=== PATIENT | male | born 1955 | race Caucasian/White ===

== ENCOUNTER 2018-07-30 09:17 | Day surgery (SDC) | payer OTHER, SELFPAY ==
--- NOTE | 2018-07-30 | PATH_ITS ---
[facility] Accession Number: [id number] . 01 Material submitted: . PART A: CECAL POLYP PART B: ASCENDING COLON POLYP PART C: SIGMOID POLYP PART D: RECTAL POLYP . 02 Diagnosis: A. Cecum, Polyp, Biopsy: Tubular adenoma. . B. Ascending Colon, Polyp, Biopsy: Tubular adenoma. . C. Sigmoid Colon, Polyp, Biopsy: Tubulovillous adenoma. No evidence of malignancy or high-grade dysplasia. . D. Rectum, Polyp, Biopsy: Tubular adenoma. MRV/07/31/2018 . 02 Electronically signed: . Rupal Ribeiro MD, Pathologist NPI- [id number] . 01 Gross description: . Received four formalin-filled containers, each labeled with the patient's name: . A. In a container labeled cecal polyp, the specimen consists of multiple 0.1-0.4 cm portions of tissue, which are filtered and entirely submitted in cassette A. B. In a container labeled ascending colon polyp, the specimen consists of two 0.4-0.7 cm portions of tissue, entirely submitted in cassette B. C. In a container labeled sigmoid polyp, the specimen consists of a 0.8 cm portion of tissue, which is trisected and totally submitted in cassette C. D. In a container labeled rectal polyp, the specimen consists of two 0.2-0.4 cm portions of tissue, entirely submitted in cassette D. ([id number]) /FRR . 02 Pathologist provided ICD-10: D12.0, D12.2, D12.5, D12.8 . 02 CPT . 771783, [id number], [id number], [id number] Performed at: [address] [place] [address] [address], [place], [place] [id number] MD Pito Ball MD Phone: [phone] Performed at: 02 [facility] [place] [address] [place] [id number] MD Rupal Ribeiro MD Phone: [phone]
--- NOTE | 2018-07-30 09:40 | P.HP_ITS ---
History of Present Illness Date Patient Seen: 07/30/18 Chief complaint: 22018 SCREENING COLONOSCOPY Narrative: 62-year-old male with here for colon cancer screening. No prior colonoscopy or family history of colon cancer Patient History Social History household members: friend(s) and none Meds Home Medications Medication Instructions Recorded Confirmed Type Acetaminophen/Aspirin/Caffei 1 sgl PO #0 11/30/10 History (EXCEDRIN EXTRA STRENGTH 250 MG-250 MG-65 MG~) amlodipine-atorvastatin 1 tab PO DAILY 07/30/18 07/30/18 History Allergies Allergy/AdvReac Type Severity Reaction Status Date / Time No Known Allergies Allergy Uncoded 10/09/17 12:02 Exam Vital Signs (past 8 hours): General: Patient is obese, not in apparent distress Cardiovascular: Regular rate and rhythm, no murmurs, rubs, or gallops; no evidence of edema; no palpable abdominal aortic aneurysm Gastrointestinal: Normoactive bowel sounds, soft, nontender, nondistended, no rebound tenderness, no hepatosplenomegaly, no evidence of hernia Assessment & Plan Plan: Assessment/Plan Narrative: 62-year-old male here for colon cancer screening. He is at average risk for colorectal cancer Regarding the procedure(s), the risks and potential complications, benefits, and alternatives (including not doing the procedure) were discussed with the patient. The risks include but are not limited to bleeding, splenic injury, infection, perforation which may require surgical intervention, missed lesions, and adverse reactions to sedative medicines. After a question and answer period , the patient agreed to proceed with the procedure(s) and gives informed consent.
[2018-07-30 09:41] VITALS: BP 128/80; PULSE 76; RESP 16; TEMP 36.4; O2SAT 97; BMI 34.4
[2018-07-30] MEDS: SODIUM CHLORIDE 0.9% 1,000 ML 70 ML IV (09:46)
--- NOTE | 2018-07-30 09:54 | PM.OP.ENDO ---
Operative Date/Time/Diagnoses Date of procedure: 07/30/18 Procedure Notes Procedure in detail: Surgeon: Edwin Oneil MD Procedure: Colonoscopy with polypectomy Preoperative diagnosis: Average risk colon cancer screening Postoperative diagnosis: 4 colon polyps status post polypectomy, grade 1 internal hemorrhoids Medications: Conscious sedation using 5 mg IV of Midazolam and 150 mcg IV of Fentanyl Preanesthesia Assessment An H and P was performed/updated and the Px?s ASA class is 2. The procedure was discussed in detail with the patient. The potential risks and complications including infection, bleeding, missed lesions, perforation, need for surgery in case of perforation, prolonged hospital stay, and were explained. A brief question and answer period was allotted and once all questions were answered, informed consent was obtained. The patient was brought back to the procedure room and placed on standard monitoring. The patient?s vital signs were monitored continuously throughout the entire procedure. Prior to starting, a timeout was performed to confirm the patient?s identity, allergies, medications, and procedure. Procedure in detail The patient was placed in left lateral decubitus position and once adequate sedation was obtained a ROBERTO was performed. The digital rectal examination did not reveal any palpable lesions. The tip of the colonoscope was placed in the anal canal and advanced without difficulty all the way to the cecum which was identified by the appendiceal orifice and the ileocecal valve. Careful examination of all hodges of the colon was performed with irrigation of any residual stool. In the cecum there is note of a 4 mm sessile polyp which was removed by means of a cold snare. Resection and retrieval were complete with minimal bleeding. In the ascending colon there was note of a 7 mm sessile polyp which was removed by means of a cold snare. Resection and retrieval were complete with minimal bleeding. In the sigmoid colon there is note of a 12 mm pedunculated polyp which was removed by means of a hot snare. Resection and retrieval were complete with no bleeding. In the rectum there is note of a 3 mm sessile polyp which was removed by means of a cold Jumbo forceps. Resection and retrieval were complete with minimal bleeding. Retroflexion was performed in the rectum with evidence of grade 1 internal hemorrhoids The patient tolerated the procedure well and will be brought back to the recovery area to be discharged once criteria are met. The prep was judged to be good/excellent and adequate to identify polyps less than 5 mm. The withdrawal time was 11 min. The total physician intraservice time was 17 min. Complications There were no complications and estimated blood loss was minimal. Recommendations: Resume previous diet Continue outPx medications Follow up pathology results Repeat colonoscopy in 3 years An emergency contact number was given to the patient for any complications related to the procedure
[2018-07-30] MEDS: fentaNYL 250 MCG/5 ML INJ IV (10:18)
[2018-07-30] MEDS: MIDAZOLAM 5 MG/5 ML VIAL IV (10:18)
[2018-07-30 10:19] VITALS: BP 119/81; PULSE 78; RESP 12; TEMP 36.2; O2SAT 96
--- NOTE | 2018-07-30 10:21 | PM.DS.1 ---
History of Present Illness Chief complaint: 03799 SCREENING COLONOSCOPY Narrative: 62-year-old male with here for colon cancer screening. No prior colonoscopy or family history of colon cancer Discharge Providers Primary care physician: Rey Garber MD Discharge provider: Edwin Oneil MD Discharge Date: 07/30/18 Exam Vital Signs (past 8 hours): - 07/30/18 09:41 Temperature 97.6 F Pulse Rate 76 Respiratory Rate 16 Blood Pressure 128/80 Pulse Oximetry 97 Oxygen Delivery Method Room Air Narrative Exam Narrative: General: Patient is obese, not in apparent distress Cardiovascular: Regular rate and rhythm, no murmurs, rubs, or gallops; no evidence of edema; no palpable abdominal aortic aneurysm Gastrointestinal: Normoactive bowel sounds, soft, nontender, nondistended, no rebound tenderness, no hepatosplenomegaly, no evidence of hernia Discharge Plan Discharge Plan Patient Disposition: Home Discharge Med Rec/Prescriptions Prescriptions: Continue Acetaminophen/Aspirin/Caffei (EXCEDRIN EXTRA STRENGTH 250 MG-250 MG-65 MG~) 1 sgl PO Qty: 0 RF: 0 amlodipine-atorvastatin 5-20 mg Tablet 1 tab PO DAILY RF: 0 Discharge Orders: Discharge (Order); Ordered 07/30/18 Ordered By: Edwin Oneil Provider Discharge Instructions Diet: Diet as Tolerated Visit Report/Discharge Packet Stand Alone Forms: Surgery Discharge Discharge Data Primary Care Provider: Rey Garber V Attending Provider: Edwin Oneil
[2018-07-30 10:24] VITALS: BP 115/79; PULSE 67; PULSE 73; RESP 14; RESP 16; O2SAT 96; O2SAT 97
[2018-07-30 10:27] VITALS: BP 104/73; PULSE 69; RESP 14; TEMP 36.3; O2SAT 96
== END 2018-07-30 10:47 | disposition home or self-care (01) ==
PROVIDERS: PCP Internal Medicine; Visit Provider Internal Medicine Gastroenterology
PROC: 0DJD8ZZ Inspection of Lower Intestinal Tract, Via Natural or Artificial Opening Endoscopic (ICD-10-PCS; CPT 45378; principal; 2018-07-30 11:00)
DX: Z12.11 Encounter for screening for malignant neoplasm of colon (principal); K64.0 First degree hemorrhoids; D12.0 Benign neoplasm of cecum; D12.2 Benign neoplasm of ascending colon; D12.5 Benign neoplasm of sigmoid colon; D12.8 Benign neoplasm of rectum
CPT/HCPCS: 45385; 45380; J2250; J3010

== ENCOUNTER → 2019-06-17 18:20 | Outpatient (ROUT) | payer OTHER, SELFPAY ==
[2019-06-17 19:03] LABS: Alanine Aminotransferase 71 IU/L (<50); Albumin 4.7 g/dL (3.5-5.0); Albumin Globulin Ratio 2.1 (1.0-2.8); Alkaline Phosphatase 69 U/L (38-126); Aspartate Aminotransferase 47 IU/L (17-59); BUN Creatinine Ratio 21.1 (6-22); Bilirubin Total 0.9 mg/dL (0.2-1.3); Bilirubin Unconjugated 0.6 mg/dL (0.0-1.1); Blood Urea Nitrogen 19 mg/dL (9-20); Calcium 9.7 mg/dL (8.4-10.2); Carbon Dioxide 26 mmol/L (22-32); Chloride 103 mmol/L (98-107); Cholesterol 177 mg/dL (140-199); Estimated Glomerular Filt Rate > 60.0 mL/min (>60); Globulin 2.2 g/dL (1.7-4.1); Glucose 92 mg/dL (80-110); HDL Cholesterol 48 mg/dL (40-60); HEMOLYSIS < 15 (0-50); LDL Cholesterol Calculated 95 mg/dL (<100); Potassium 4.7 mmol/L (3.4-5.1); Sodium 139 mmol/L (137-145); Total Protein 6.9 g/dL (6.3-8.2); Triglycerides 171 mg/dL (35-150)
[2019-06-17 19:34] LABS: Prostate Specific Antigen 0.654 ng/mL (0.10-4.00)
[2019-06-17 19:35] LABS: Hepatitis B Surface Antigen NEGATIVE s/c (NEGATIVE)
[2019-06-17 19:52] LABS: Hep C Virus Ab w/Reflex Quant NEGATIVE s/c (NEGATIVE)
[2019-06-20 15:04] LABS: Hepatitis B Surf Ab Qualitativ Nonreactive (Nonreactive)
== END ==
PROVIDERS: PCP Internal Medicine; Visit Provider Internal Medicine
DX: E78.2 Mixed hyperlipidemia (principal)
CPT/HCPCS: 80048; 80061; 80076; 84153; 86706; 86803; 87340

== ENCOUNTER 2020-05-17 07:14 | Observation (INO) | payer OTHER, SELFPAY ==
[2020-05-17] VITALS (32 sets, daily range): BP systolic 109–183; BP diastolic 72–129; PULSE 57–135; RESP 15–34; TEMP 36.1–36.8; O2SAT 85–95; BMI 35.2
--- NOTE | 2020-05-17 | DI.ECHO.S_ITS ---
[facility]---------+ [facility] +---------+ : : [address] : : : : [id number] : : : : Phone: [phone] Echocardiogram Report + + :Name: SRIDEVI BARKSDALE Study Date: 05/18/2020 Height: 70 in : :[facility] Weight: 245 lb : : Gender: Male BSA: 2.3 m2 : :: 1955 Age: 64 yrs BP: 134/85 mmHg: :Reason For Study: ATRIAL FIBRILLATION : :Ordering Physician: MIRIAM, : :VAL LALA Performed By: Elaine Houston : :Referring: VAL PINEDA : + + Interpretation Summary 1) Normal left ventricular size with moderately reduced sysotlic function (EF 35-40%). 2) Normal right ventricular size and function. 3) The left atrium is severely dilated. 4) There is mild mitral regurgitation. 5) The right ventricular systolic pressure is estimated to be at least 37 mmHg based on an estimated right atrial pressure of 8 mm Hg. 6) The aortic root is moderately dilated at 4.4cm. The ascending aorta is mild-moderately enlarged at 4.2cm. 7 No prior Echo available for comparison. Procedure: A two-dimensional transthoracic echocardiogram with color flow and Doppler was performed. The study quality was technically adequate. There is no prior echocardiogram noted for this patient. The patient was in atrial fibrillation with heart rates between 82-127 bpm during the exam. Left Ventricle: The estimated left ventricular end diastolic volume is 131 ml. The left ventricle is normal in size. Left ventricular wall thickness is mildly increased. The ejection fraction is estimated to be 35-40%. There is moderate global hypokinesis of the left ventricle. Diastolic function could not be accurately assessed due to atrial fibrillation. Right Ventricle: The right ventricle is normal in size and function. Atria: The left atrium is severely dilated. The right atrium is moderate to severely dilated. There is no Doppler evidence for an interatrial shunt. Mitral Valve: The mitral valve leaflets appear borderline thickened, but open well. There is mild mitral regurgitation. Aortic Valve: The aortic valve is trileaflet. The aortic valve opens well. There is no aortic valve stenosis. There is mild aortic regurgitation. Tricuspid Valve: The tricuspid valve leaflets are thin and pliable. There is mild tricuspid regurgitation. The right ventricular systolic pressure is estimated to be at least 37 mmHg based on an estimated right atrial pressure of 8 mm Hg. Pulmonic Valve: The pulmonic valve leaflets are thin and pliable; valve motion is normal. There is no pulmonic valvular regurgitation. Great Vessels: The aortic root is moderately dilated. The ascending aorta is mild-moderately enlarged. The IVC is dilated (diameter is greater than 2.1 cm) yet it collapses greater than 50% with a sniff. This suggests a right atrial pressure of 8 mm Hg. Pericardium/ Pleura There is no pericardial effusion. There is a pleural effusion noted. MMode/2D Measurements & Calculations LVIDd: 5.1 cm LVOT diam: 2.2 cm LVIDs: 3.9 cm Ao root diam: 4.4 cm FS: 23.4 % asc Aorta Diam: 4.2 cm EPSS: 1.3 cm Ao Arch Diam (Prox Trans): 3.5 cm IVSd: 1.3 cm LVPWd: 1.0 cm LV uriostegui. diameter/BSA (cm/m^2): 2.2 LV sys. diameter/BSA (cm/m^2): 1.7 LA A2 area: 36.2 cm2 RA long axis: 7.4 cm LA A4 area: 42.1 cm2 RA area: 31.9 cm2 LA length (vol): 7.0 cm RA vol: 116.9 ml LA vol: 183.8 ml RA : 51.4 ml/m2 LA vol index: 80.8 ml/m2 IVC diam: 2.1 cm RVD1 (basal): 3.4 cm TAPSE: 1.7 cm Doppler Measurements & Calculations Ao V2 max: 110.6 cm/sec LVOT Max Alex: 74.2 cm/sec Ao V2 mean: 77.3 cm/sec LV V1 max P.2 mmHg Ao max P.9 mmHg LV V1 VTI: 13.0 cm Ao mean P.7 mmHg MARIMAR(I,D): 2.6 cm2 Ao V2 VTI: 19.3 cm MARIMAR(V,D): 2.6 cm2 sev ratio: 0.67 MARIMAR indexed to BSA (cm^2/m^2): 1.2 MV E max alex: 89.6 cm/sec TR max alex: 269.6 cm/sec MV A max alxe: 1.7 cm/sec TR max P.3 mmHg MV E/A: 54.1 PA V2 max: 70.7 cm/sec Med Peak E' Alex: 5.5 cm/sec PA V2 mean: 41.2 cm/sec E/E' med: 16.2 PA mean P.87 mmHg Lat Peak E' Alex: 13.4 cm/sec PA pr(Accel): 56.7 mmHg E/E' lat: 6.7 E/e' average: 11.4 MV dec time: 0.14 sec SV(LVOT): 50.8 ml Reading Physician:05:11 PM
--- NOTE | 2020-05-17 07:38 | DI.RAD.S_ITS ---
PROCEDURE: XR CHEST 1V INDICATIONS: chest pain TECHNIQUE: One view of the chest was acquired. COMPARISON: [facility], CHEST 2 VIEW, 08/21/2016, 8:32. [facility], CHEST 2 VIEW, 12/28/2010, 8:39. FINDINGS: Surgical changes and devices: None. Lungs and pleura: Lungs are edematous. No pleural effusions or pneumothorax. Mediastinum: Mediastinal contours appear normal. Heart size is moderately enlarged. Bones and chest wall: No suspicious bony lesions. Overlying soft tissues appear unremarkable. IMPRESSION: Acute CHF. Dictated by: Dmitry Gasca M.D. on 05/17/2020 at 8:08 Approved by: Dmitry Gasca M.D. on 05/17/2020 at 8:09
[2020-05-17 07:57] LABS: INR 1.1 (0.9-1.3); Prothrombin Time 12.2 SECONDS (10.1-12.7)
[2020-05-17 08:00] LABS: Add Manual Diff / Slide Review NO; Basophils Absolute Auto 100 /uL (0-100); Basophils Percent Auto 0.8 % (0-2); Eosinophils Absolute Auto 300 /uL (0-450); Eosinophils Percent Auto 2.7 % (2-4); Hematocrit 45.5 % (41-53); Hemoglobin 15.1 g/dL (13.5-17.5); Lymphocytes Absolute Auto 1000 /uL (1100-4500); Lymphocytes Percent Auto 8.9 % (25-40); Mean Corpuscular HGB Conc 33.1 % (30-36); Mean Corpuscular Hemoglobin 29.8 PG (26-34); Mean Corpuscular Volume 90.1 fL (80-100); Monocytes Absolute Auto 1000 /uL (0-900); Neutrophils Absolute Auto 8600 /uL (1500-7000); Neutrophils Percent Auto 78.6 % (50-75); PTT Partial Thromboplastin Tim 30 SECONDS (26.4-36.2); Platelet Count 239 X10^3/uL (150-400); Red Blood Cell Count 5.05 X10^6/uL (4.5-5.9); Red Cell Distribution Width 12.8 % (11.6-14.8)
[2020-05-17 08:03] LABS: Alanine Aminotransferase 84 IU/L (<50); Albumin Globulin Ratio 1.6 (1.0-2.8); Alkaline Phosphatase 58 U/L (38-126); Aspartate Aminotransferase 45 IU/L (17-59); BUN Creatinine Ratio 24.4 (6-22); Blood Urea Nitrogen 21 mg/dL (9-20); Calcium 8.8 mg/dL (8.4-10.2); Carbon Dioxide 26 mmol/L (22-32); Chloride 107 mmol/L (98-107); Creatine Kinase 326 U/L (55-170); Estimated Glomerular Filt Rate > 60.0 mL/min (>60); Globulin 2.5 g/dL (1.7-4.1); Glucose 119 mg/dL (80-110); Lipase 55 U/L (23-300); Potassium 5.1 mmol/L (3.4-5.1); Sodium 136 mmol/L (137-145); Total Protein 6.5 g/dL (6.3-8.2)
[2020-05-17 08:14] LABS: Troponin I 0.024 ng/mL (0.01-0.034)
[2020-05-17 08:18] LABS: CKMB % Relative Index 1.9 % (1.5-5.0); Creatine Kinase MB 6.07 ng/mL (<2.37); HEMOLYSIS 36 (0-50)
--- NOTE | 2020-05-17 08:38 | ED.SOB ---
HPI - SOB/Dyspnea General Chief Complaint: Shortness of Breath/Dyspnea Stated Complaint: shortness of breath, covid Time Seen by Provider: 05/17/20 08:29 Source: patient Mode of arrival: Ambulatory Limitations: no limitations History of Present Illness HPI Narrative: This a 64-year-old male comes emergency department with complaint of shortness of breath. He was concerned about possible coronavirus and came for evaluation. Patient states that he noticed a little bit changed yesterday but this morning when he went to go grocery shopping before work he felt quite short of breath while walking through the grocery store. Patient states that he has not issues past. He denies any fevers he does check his temperature regularly because of work, no cough cold or congestion. No chest pain or pressure, no fluttering or palpitations. Nausea, no vomiting, no issues with bowel movements or urination. He has not appreciated any swelling extremities. Patient states he takes medication for hypertension and dyslipidemia which is a combination medicine of amlodipine and atorvastatin. He denies any other prior medical issues. Does not take any blood thinners or aspirin daily. Denies any prior surgeries. No allergies to medications. He does drink a beer as well as 2-3 glasses of wine daily, no illicit. He has had some tobacco use for short. This year but normally does not smoke. His primary care is Dr. 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 Related Data Home Medications Medication Instructions Recorded Confirmed amlodipine-atorvastatin 1 tab PO DAILY 07/30/18 05/17/20 Allergies Allergy/AdvReac Type Severity Reaction Status Date / Time No Known Drug Allergies Allergy Verified 05/17/20 13:33 Review of Systems Review of Systems ROS Unobtainable: All systems reviewed & are unremarkable except as noted in HPI and below Patient History Medical History (Updated 05/17/20 @ 08:59 by Tamara Lala DO) Dyslipidemia Hypertension Social History household members: friend(s) and none Smoking Status: Never smoker alcohol intake: current Smoking Status: Current some day smoker alcohol intake frequency: 3 or more drinks per day Exam Narrative Exam Narrative: GENERAL: Alert and oriented x three, well-nourished, well-appearing male in mild distress. HEENT: Head normocephalic, atraumatic, EOMI, pupils reactive, face symmetric, moist mucous membranes NECK: Supple, full range of motion CARDIOVASCULAR: Irregularly irregular rate and rhythm without murmurs, rubs or gallops. Mild JVD. No swelling in bilateral lower extremities. RESPIRATORY: Breath sounds equal bilaterally, no wheezes rales or rhonchi. No accessory muscle use. No tachypnea. ABDOMEN: Soft, nontender. Normoactive bowel sounds all 4 quadrants. No guarding or rebound, rigidity, no mass : No CVA tenderness EXTREMITIES: Normal range of motion, no clubbing or edema. Neurovascularly intact NEUROLOGICAL: Cranial nerves II through XII grossly intact. Moving all extremities SKIN: Warm, dry, no petechiae, no rashes or lesions. Initial Vital Signs Initial Vital Signs: Vital Signs Temperature 98.2 F 05/17/20 07:15 Pulse Rate 127 H 05/17/20 07:15 Respiratory Rate 18 05/17/20 07:15 Blood Pressure 183/129 H 05/17/20 07:15 Pulse Oximetry 93 05/17/20 07:15 Scores CHADS-VASc Congestive heart failure: yes Hypertension: yes Age 75 years or older: no Diabetes mellitus: no Stroke, TIA, or TE: no Vascular disease: no Age 65 to 74 years: no Sex category (female): Male CHADS-VASc Score: 2 HEART Score Heart Score history: Moderately Suspicious Heart Score EKG: Non-Specific repolarization disturbance Heart Score Age: 45-64 years old Heart Score risk factors: 1-2 risk factors Heart Score troponin: < or = to normal limit Heart Score Total: 4 Course Orders Ordered: Acetaminophen (Acetaminophen 325 Mg Tablet) 650 mg PO Q6HR PRN PRN Reason: Fever/Mild Pain (1-3) Apixaban (Apixaban 5 Mg Tablet) 5 mg PO BID ARNOLDO Atorvastatin Calcium (Atorvastatin 20 Mg Tablet) 20 mg PO BEDTIME ARNOLDO Furosemide (Furosemide 40 Mg/4 Ml Vial) 40 mg IV 0800,1700 [facility] Last Admin: 05/17/20 17:35 Dose: 40 mg Documented by: MALU DILTIAZEM (Diltiazem 125 Mg/125 Ml-D5w) 125 mg in 125 mls @ 5 mls/hr IV TITRATE [facility]; Protocol Last Titration: 05/17/20 14:45 Dose: 5 mg/hr, 5 mls/hr Documented by: Titration: 05/17/20 12:30 Dose: 10 mg/hr, 10 mls/hr Documented by: Admin: 05/17/20 11:27 Dose: 5 mg/hr, 5 mls/hr Documented by: LOUIE Influenza Virus Vaccine (Influenza Vaccine 0.5 Ml Syringe) 0.5 ml IM .ONCE ONE Stop: 05/18/20 09:01 Metoprolol Succinate (Metoprolol Er 25 Mg Tablet) 50 mg PO BID [facility] Ondansetron HCl (Ondansetron 4 Mg/2 Ml Inj) 4 mg IV Q8HR PRN PRN Reason: Nausea And Vomiting Discontinued Medications Apixaban (Apixaban 5 Mg Tablet) 5 mg PO NOW ONE Stop: 05/17/20 13:31 Last Admin: 05/17/20 14:44 Dose: 5 mg Documented by: SOPHIA Aspirin (Aspirin 81 Mg Chew Tab) 324 mg PO NOW ONE Stop: 05/17/20 08:51 Last Admin: 05/17/20 09:02 Dose: 324 mg Documented by: LOUIE Diltiazem HCl (Diltiazem 5 Mg/Ml Sdv) 20 mg IV NOW ONE Stop: 05/17/20 08:52 Last Admin: 05/17/20 09:02 Dose: 20 mg Documented by: LOUIE Furosemide (Furosemide 40 Mg/4 Ml Vial) 40 mg IV NOW ONE Stop: 05/17/20 08:53 Last Admin: 05/17/20 09:03 Dose: 40 mg Documented by: LOUIE Metoprolol Succinate (Metoprolol Er 25 Mg Tablet) 25 mg PO NOW ONE Stop: 05/17/20 11:43 Last Admin: 05/17/20 12:09 Dose: 25 mg Documented by: FREDDY Metoprolol Succinate (Metoprolol Er 25 Mg Tablet) 25 mg PO BID [facility] Reevaluation(s) Time: 10:47 Consultations Consultation #1: Spoke with Dr. Uribe, plan for ICU with observation Time: 11:45 Vital Signs Vital signs: Vital Signs - 8 hr 05/17/20 07:15 05/17/20 07:23 05/17/20 07:26 Temperature 98.2 F Pulse Rate 127 H 57 L 127 H Respiratory Rate 18 16 Blood Pressure 183/129 H 183/129 H 156/90 H Pulse Oximetry 93 92 93 11/17/20 07:30 05/17/20 07:31 05/17/20 08:00 Temperature Pulse Rate 135 H 126 H 134 H Respiratory Rate 24 34 H Blood Pressure 144/98 H 141/87 H Pulse Oximetry 93 94 91 05/17/20 08:30 05/17/20 08:31 05/17/20 08:50 Temperature Pulse Rate 132 H 118 H 121 H Respiratory Rate 15 Blood Pressure 141/101 H 141/101 H Pulse Oximetry 93 94 94 05/17/20 09:00 05/17/20 09:01 05/17/20 09:12 Temperature Pulse Rate 119 H 133 H 97 H Respiratory Rate Blood Pressure 134/96 H 125/81 Pulse Oximetry 93 92 91 05/17/20 09:30 05/17/20 10:18 Temperature Pulse Rate 93 H 116 H Respiratory Rate 15 Blood Pressure 134/85 Pulse Oximetry 93 92 MDM - SOB/Dyspnea Lab Data Attestation: I reviewed the patient's lab results. Lab results narrative: Patient's labs show normal CBC with left shift in the neutrophils. Sodium is 136, BUN 21 with a glucose of 119 with normal renal function and potassium is 5.1. Coags are normal range. ALT is 84 with a total CK of 326 and a CK-MB of 6.07, troponin is on the higher end of negative at 0.024, BNP Result diagrams: 05/17/20 07:42 05/17/20 07:42 Labs: Lab Results 05/17/20 05/17/20 05/17/20 Range/Units 07:32 07:42 07:42 WBC 11.0 (4.5-11.0) X10^3/uL RBC 5.05 (4.5-5.9) X10^6/uL Hgb 15.1 (13.5-17.5) g/dL Hct 45.5 (41-53) % MCV 90.1 (80-100) fL MCH 29.8 (26-34) PG MCHC 33.1 (30-36) % RDW 12.8 (11.6-14.8) % Plt Count 239 (150-400) X10^3/uL Neut % (Auto) 78.6 H (50-75) % Lymph % (Auto) 8.9 L (25-40) % Barton % (Auto) 9.0 (3-14) % Eos % (Auto) 2.7 (2-4) % Baso % (Auto) 0.8 (0-2) % Neut # (Auto) 8600 H (0045-7494) /uL Lymph # (Auto) 1000 L (2995-5450) /uL Barton # (Auto) 1000 H (0-900) /uL Eos # (Auto) 300 (0-450) /uL Baso # (Auto) 100 (0-100) /uL PT 12.2 (10.1-12.7) SECONDS INR 1.1 (0.9-1.3) APTT 30 (26.4-36.2) SECONDS Sodium (137-145) mmol/L Potassium (3.4-5.1) mmol/L Chloride (98-107) mmol/L Carbon Dioxide (22-32) mmol/L BUN (9-20) mg/dL Creatinine (0.66-1.25) mg/dL Estimated GFR (>60) mL/min BUN/Creatinine Ratio (6-22) Glucose (80-110) mg/dL Calcium (8.4-10.2) mg/dL Magnesium (1.6-2.3) mg/dL Total Bilirubin (0.2-1.3) mg/dL AST (17-59) IU/L ALT (<50) IU/L Alkaline Phosphatase (38-126) U/L Total Creatine Kinase (55-170) U/L CK-MB (CK-2) (<2.37) ng/mL CK-MB (CK-2) Rel Index (1.5-5.0) % Troponin I (0.01-0.034) ng/mL NT-Pro-B Natriuret Pep 1260 H (<125) pg/mL Total Protein (6.3-8.2) g/dL Albumin (3.5-5.0) g/dL Globulin (1.7-4.1) g/dL Albumin/Globulin Ratio (1.0-2.8) Lipase (23-300) U/L TSH (0.47-4.68) uIU/mL COVID-19 PCR (Negative) 05/17/20 05/17/20 05/17/20 Range/Units 07:42 07:42 07:42 WBC (4.5-11.0) X10^3/uL RBC (4.5-5.9) X10^6/uL Hgb (13.5-17.5) g/dL Hct (41-53) % MCV (80-100) fL MCH (26-34) PG MCHC (30-36) % RDW (11.6-14.8) % Plt Count (150-400) X10^3/uL Neut % (Auto) (50-75) % Lymph % (Auto) (25-40) % Barton % (Auto) (3-14) % Eos % (Auto) (2-4) % Baso % (Auto) (0-2) % Neut # (Auto) (2675-6153) /uL Lymph # (Auto) (0949-0902) /uL Barton # (Auto) (0-900) /uL Eos # (Auto) (0-450) /uL Baso # (Auto) (0-100) /uL PT (10.1-12.7) SECONDS INR (0.9-1.3) APTT (26.4-36.2) SECONDS Sodium 136 L (137-145) mmol/L Potassium 5.1 (3.4-5.1) mmol/L Chloride 107 (98-107) mmol/L Carbon Dioxide 26 (22-32) mmol/L BUN 21 H (9-20) mg/dL Creatinine 0.86 (0.66-1.25) mg/dL Estimated GFR > 60.0 (>60) mL/min BUN/Creatinine Ratio 24.4 H (6-22) Glucose 119 H (80-110) mg/dL Calcium 8.8 (8.4-10.2) mg/dL Magnesium 2.0 (1.6-2.3) mg/dL Total Bilirubin 1.0 (0.2-1.3) mg/dL AST 45 (17-59) IU/L ALT 84 H (<50) IU/L Alkaline Phosphatase 58 (38-126) U/L Total Creatine Kinase 326 H (55-170) U/L CK-MB (CK-2) 6.07 H (<2.37) ng/mL CK-MB (CK-2) Rel Index 1.9 (1.5-5.0) % Troponin I 0.024 (0.01-0.034) ng/mL NT-Pro-B Natriuret Pep (<125) pg/mL Total Protein 6.5 (6.3-8.2) g/dL Albumin 4.0 (3.5-5.0) g/dL Globulin 2.5 (1.7-4.1) g/dL Albumin/Globulin Ratio 1.6 (1.0-2.8) Lipase 55 (23-300) U/L TSH 2.61 (0.47-4.68) uIU/mL COVID-19 PCR (Negative) 05/17/20 Range/Units 09:22 WBC (4.5-11.0) X10^3/uL RBC (4.5-5.9) X10^6/uL Hgb (13.5-17.5) g/dL Hct (41-53) % MCV (80-100) fL MCH (26-34) PG MCHC (30-36) % RDW (11.6-14.8) % Plt Count (150-400) X10^3/uL Neut % (Auto) (50-75) % Lymph % (Auto) (25-40) % Barton % (Auto) (3-14) % Eos % (Auto) (2-4) % Baso % (Auto) (0-2) % Neut # (Auto) (2201-9850) /uL Lymph # (Auto) (0296-9326) /uL Barton # (Auto) (0-900) /uL Eos # (Auto) (0-450) /uL Baso # (Auto) (0-100) /uL PT (10.1-12.7) SECONDS INR (0.9-1.3) APTT (26.4-36.2) SECONDS Sodium (137-145) mmol/L Potassium (3.4-5.1) mmol/L Chloride (98-107) mmol/L Carbon Dioxide (22-32) mmol/L BUN (9-20) mg/dL Creatinine (0.66-1.25) mg/dL Estimated GFR (>60) mL/min BUN/Creatinine Ratio (6-22) Glucose (80-110) mg/dL Calcium (8.4-10.2) mg/dL Magnesium (1.6-2.3) mg/dL Total Bilirubin (0.2-1.3) mg/dL AST (17-59) IU/L ALT (<50) IU/L Alkaline Phosphatase (38-126) U/L Total Creatine Kinase (55-170) U/L CK-MB (CK-2) (<2.37) ng/mL CK-MB (CK-2) Rel Index (1.5-5.0) % Troponin I (0.01-0.034) ng/mL NT-Pro-B Natriuret Pep (<125) pg/mL Total Protein (6.3-8.2) g/dL Albumin (3.5-5.0) g/dL Globulin (1.7-4.1) g/dL Albumin/Globulin Ratio (1.0-2.8) Lipase (23-300) U/L TSH (0.47-4.68) uIU/mL COVID-19 PCR Negative (Negative) Imaging Data Chest x-ray: Radiologist's Impression: [address] [id number] ReportSigned Patient: Julio Moore R#: [id number]: 8Acct:[id number]/Sex: 64 / MDate of Service: 05/17/20Loc: EDAccession Number: [id number] Procedure: XR chest 1V Ordering Provider: Tamara Lala D.O. PROCEDURE: XR CHEST 1V INDICATIONS: chest pain TECHNIQUE: One view of the chest was acquired. COMPARISON: [facility], CHEST 2 VIEW, 08/21/2016, 8:32. [facility], CHEST 2 VIEW, 12/28/2010, 8:39. FINDINGS: Surgical changes and devices: None. Lungs and pleura: Lungs are edematous. No pleural effusions or pneumothorax. Mediastinum: Mediastinal contours appear normal. Heart size is moderately enlarged. Bones and chest wall: No suspicious bony lesions. Overlying soft tissues appear unremarkable. IMPRESSION: Acute CHF. Dictated by: Dmitry Gasca M.D. on 05/17/2020 at 8:08 Approved by: Dmitry Gasca M.D. on 05/17/2020 at 8:09 ECG Data Attestation: I personally reviewed and interpreted this ECG as follows: Prior ECG tracings: available for review Interpretation: AFib with RVR with a rate of 115, QRS of 92 and QTC of 481. No ST elevation is appreciated. Nonspecific change with some depression in 1 and aVL. Patient has prior EKG from 06 which has similar Q-wave in 1 and aVL but does not have ST depression in prior. MDM Narrative Medical decision making narrative: Patient comes in with new AFib with RVR, CHF and unclear onset some patient is not candidate for electrical cardioversion. Patient is accepted by Dr. Edge for ICU observation on a Cardizem drip. Discharge Plan Departure Patient Disposition: Admitted as Observation Clinical Impression: Atrial fibrillation with rapid ventricular response, CHF (congestive heart failure) Admit Date/Time: 05/17/20 11:48 Admit Provider: Garfield Uribe
[2020-05-17 08:58] LABS: NT-proBNP (BNP-Adult 18+) 1260 pg/mL (<125)
[2020-05-17] MEDS: dilTIAZem 5 MG/ML SDV 20 MG IV (09:02)
[2020-05-17] MEDS: ASPIRIN 81 MG CHEW TAB 324 MG PO (09:02)
[2020-05-17] MEDS: FUROSEMIDE 40 MG/4 ML VIAL IV ×2 (09:03→17:35)
[2020-05-17 09:50] LABS: Thyroid Stimulating Hormone 2.61 uIU/mL (0.47-4.68)
[2020-05-17 10:29] LABS: COVID19 -Nasal RAPID Negative (Negative)
[2020-05-17] MEDS: DILTIAZEM 125 MG/125 ML PIGGYBACK IV (11:27)
[2020-05-17] MEDS: METOPROLOL ER 25 MG TABLET PO (12:09)
--- NOTE | 2020-05-17 13:26 | PM.HP.1 ---
History of Present Illness History of Present Illness Date Patient Seen: 05/17/20 Time Patient Seen: 13:26 Chief complaint: shortness of breath, covid Narrative: Cornell Moore is a 64-year-old male with a past medical history of hypertension hyperlipidemia who presented with dyspnea on exertion worsened since yesterday evening. 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 He was concerned about COVID-19 and decided to come to the emergency room for further testing. He does report some worsened dyspnea on exertion over the past week, but not as bad as this morning. He denies any chest pain, nausea, vomiting, diaphoresis, palpitations, orthopnea, lower extremity edema, or PND. He denies any recent cough, fever, or chills. The patient does state that he snores at night but does not know if he has sleep apnea, he further endorses a couple of beers nightly as well as a glass of wine. He has never had symptoms of alcohol withdrawal when he has stopped drinking. In the emergency room, the patient was tachycardic to 127 and mildly hypertensive. He was saturating well on room air. Initial laboratory evaluation revealed an unremarkable CBC, coagulation studies. Chemistries revealed a mildly elevated glucose at 119, ALT of 84, CK of 326 with an elevated MB portion at 6.07, troponin was 0.024. ProBNP was 1260. EKG showed atrial fibrillation with rapid ventricular response with a rate of 115. There was nonspecific ST depression with precordial leads showing less than 1 mm deviation. Chest x-ray shows bilateral basilar patchy infiltrates consistent with fluid overload. In emergency room he received IV diltiazem which improved his rate, he was then started on a diltiazem infusion. He was further given a dose of Lasix. He is admitted to the ICU under observation care for atrial fibrillation with rapid ventricular response on a diltiazem infusion. He also received a single dose of 25 mg of metoprolol succinate. Patient History Medical History (Updated 05/17/20 @ 08:59 by Tamara Lala DO) Dyslipidemia Hypertension Family & Social History Social History: household members friend(s),none Safety & Behavioral: Feels Safe in Current Yes Environment Been Physically Hurt or No Threatened By a Person Suicidal Ideation Description None Suicide Plan Description No Plan Tobacco & Substance use: Smoking Status Never smoker alcohol intake current alcohol intake frequency 3 or more drinks per day Substance Use Type does not use Meds Home Medications and Allergies Home Medications Medication Instructions Recorded Confirmed Type Acetaminophen/Aspirin/Caffei 1 sgl PO #0 11/30/10 History (EXCEDRIN EXTRA STRENGTH 250 MG-250 MG-65 MG~) amlodipine-atorvastatin 1 tab PO DAILY 07/30/18 05/17/20 History Allergies Allergy/AdvReac Type Severity Reaction Status Date / Time No Known Drug Allergies Allergy Verified 05/17/20 13:33 Review of Systems Review of Systems Narrative: All other systems reviewed with the patient and are negative unless otherwise stated. Exam Vital Signs (past 8 hours): - 05/17/20 07:15 05/17/20 07:23 05/17/20 07:26 Temperature 98.2 F Pulse Rate 127 H 57 L 127 H Respiratory Rate 18 16 Blood Pressure 183/129 H 183/129 H 156/90 H Pulse Oximetry 93 92 93 05/17/20 07:30 05/17/20 07:31 05/17/20 08:00 Temperature Pulse Rate 135 H 126 H 134 H Respiratory Rate 24 34 H Blood Pressure 144/98 H 141/87 H Pulse Oximetry 93 94 91 05/17/20 08:30 05/17/20 08:31 05/17/20 08:50 Temperature Pulse Rate 132 H 118 H 121 H Respiratory Rate 15 Blood Pressure 141/101 H 141/101 H Pulse Oximetry 93 94 94 05/17/20 09:00 05/17/20 09:01 05/17/20 09:12 Temperature Pulse Rate 119 H 133 H 97 H Respiratory Rate Blood Pressure 134/96 H 125/81 Pulse Oximetry 93 92 91 05/17/20 09:30 05/17/20 10:18 05/17/20 12:13 Temperature Pulse Rate 93 H 116 H 95 H Respiratory Rate 15 20 Blood Pressure 134/85 122/80 Pulse Oximetry 93 92 94 Oxygen Delivery Method Room Air Narrative Exam Narrative: GENERAL APPEARANCE: Well developed, well nourished, in no acute distress. Obese with a BMI of 35.2. SKIN: Inspection of the skin reveals no rashes, ulcerations or petechiae. HEENT: Normocephalic atraumatic, extraocular muscles are intact, oropharynx is clear and mucous membranes are moist, neck is supple without adenopathy NECK: Supple and symmetric. There was no thyroid enlargement, and no tenderness, or masses were felt. CHEST: Normal AP diameter and normal contour without any kyphoscoliosis. LUNGS: Auscultation of the lungs revealed no wheezing, poor effort but mild bibasilar crackles. CARDIOVASCULAR: Tachycardic rate with irregularly irregular rhythm, without any murmurs, gallops, rubs. Peripheral pulses were 2+ and symmetric. ABDOMEN: Soft and nontender with normal bowel sounds. No ascites was noted. MUSCULOSKELETAL: There was no tenderness or effusions noted. Muscle strength and tone were normal. EXTREMITIES: No cyanosis, clubbing or edema. NEUROLOGIC: Alert and oriented x 3. Normal affect. Gait was normal. Strength is +5/5 in the Upper Extremities and Lower Extremities Bilaterally. Sensation to touch was normal. Objective ECG Impression: Atrial fibrillation with Rapid ventricular response. Rate 115. Minimal ST depression, nonspecific in precordial leads. Imaging Chest x-ray: My impression: bilateral basilar patchy infiltrates consistent with fluid overload Radiologist's impression: Acute CHF. Labs Result Diagrams: 05/17/20 07:42 05/17/20 07:42 Labs: Laboratory Results - last 24 hr 05/17/20 05/17/20 05/17/20 07:32 07:42 07:42 WBC 11.0 RBC 5.05 Hgb 15.1 Hct 45.5 MCV 90.1 MCH 29.8 MCHC 33.1 RDW 12.8 Plt Count 239 Neut % (Auto) 78.6 H Lymph % (Auto) 8.9 L Mcnairy % (Auto) 9.0 Eos % (Auto) 2.7 Baso % (Auto) 0.8 Neut # (Auto) 8600 H Lymph # (Auto) 1000 L Mcnairy # (Auto) 1000 H Eos # (Auto) 300 Baso # (Auto) 100 PT 12.2 INR 1.1 APTT 30 Sodium Potassium Chloride Carbon Dioxide BUN Creatinine Estimated GFR BUN/Creatinine Ratio Glucose Calcium Magnesium Total Bilirubin AST ALT Alkaline Phosphatase Total Creatine Kinase CK-MB (CK-2) CK-MB (CK-2) Rel Index Troponin I NT-Pro-B Natriuret Pep 1260 H Total Protein Albumin Globulin Albumin/Globulin Ratio Lipase TSH COVID-19 PCR 05/17/20 05/17/20 05/17/20 07:42 07:42 07:42 WBC RBC Hgb Hct MCV MCH MCHC RDW Plt Count Neut % (Auto) Lymph % (Auto) Mcnairy % (Auto) Eos % (Auto) Baso % (Auto) Neut # (Auto) Lymph # (Auto) [place] # (Auto) Eos # (Auto) Baso # (Auto) PT INR APTT Sodium 136 L Potassium 5.1 Chloride 107 Carbon Dioxide 26 BUN 21 H Creatinine 0.86 Estimated GFR > 60.0 BUN/Creatinine Ratio 24.4 H Glucose 119 H Calcium 8.8 Magnesium 2.0 Total Bilirubin 1.0 AST 45 ALT 84 H Alkaline Phosphatase 58 Total Creatine Kinase 326 H CK-MB (CK-2) 6.07 H CK-MB (CK-2) Rel Index 1.9 Troponin I 0.024 NT-Pro-B Natriuret Pep Total Protein 6.5 Albumin 4.0 Globulin 2.5 Albumin/Globulin Ratio 1.6 Lipase 55 TSH 2.61 COVID-19 PCR 05/17/20 09:22 WBC RBC Hgb Hct MCV MCH MCHC RDW Plt Count Neut % (Auto) Lymph % (Auto) Mcnairy % (Auto) Eos % (Auto) Baso % (Auto) Neut # (Auto) Lymph # (Auto) Mcnairy # (Auto) Eos # (Auto) Baso # (Auto) PT INR APTT Sodium Potassium Chloride Carbon Dioxide BUN Creatinine Estimated GFR BUN/Creatinine Ratio Glucose Calcium Magnesium Total Bilirubin AST ALT Alkaline Phosphatase Total Creatine Kinase CK-MB (CK-2) CK-MB (CK-2) Rel Index Troponin I NT-Pro-B Natriuret Pep Total Protein Albumin Globulin Albumin/Globulin Ratio Lipase TSH COVID-19 PCR Negative Assessment & Plan Assessment & Plan narrative: Cornell Moore is a 64-year-old male with a past medical history of hypertension hyperlipidemia who presented with dyspnea on exertion worsened since yesterday evening admitted with atrial fibrillation with rapid ventricular response. 1. Atrial fibrillation with rapid ventricular response, new diagnosis, present on admission -continue to wean from diltiazem infusion, start metoprolol succinate 25 mg b.i.d. -start anticoagulation now with apixaban 5 mg BID, CHADS-VASC currently 1 however given CXR suspect CHF which would make score 2. -continue to diurese given CXR appearance, although patient appears euvolemic on exam with minimal bibasilar crackles. -TTE ordered -continue to follow troponins to rule out ACS, initial 0.024 which is within normal limits. 2. possible acute heart failure - Patient euvolemic on exam but CXR showing findings highly consistent with acute CHF. O2 saturations borderline at 89% on room air but improving with lasix therapy since arrival to the unit. ProBNP 1260 on admission. - suspect etiology secondary to afib, further etiologies include GLADYS or EtOH use. - continue diuresis with 40 mg IV BID - TTE as noted above. 3. HTN - hold home amlodipine in favor of diuresis and rate control agents 4. HLD - continue home lipitor 20 mg 5. EtOH abuse - - patient with at least 2 beers and wine nightly. No prior history of withdrawal. Will continue to monitor, felt to be low risk for withdrawal and will hold off on CIWA protocol for now. Code: full, surrogate decision maker is the patient's sister DVT: started on apixaban Diet: Heart healthy. Dispo: Admitted observation status to the ICU on diltiazem infusion. Scores CHADS-VASc Congestive heart failure: no Hypertension: yes Age 75 years or older: no Diabetes mellitus: no Stroke, TIA, or TE: no Vascular disease: no Age 65 to 74 years: no Sex category (female): Male CHADS-VASc Score: 1
--- NOTE | 2020-05-17 14:16 | PC.NURSE ---
PT ADMITTED TO ROOM 229 WITH AFIB RVR - HE CONTINUES ON DILT GTT AT 10/H WELL PO METOPROLOL HEART RATE 85-120 BPM FREQ PVCS NOTED - ORDERED TO START PO ELIQUIS AND FOR ECHOCARDIOGRAM- LUNGS CLEAR AND REPORTS NO PAIN - ORIENTED TO ROOM AND BED CONTROLS WELL FALL RISKS AND USE OF CALL LIGHT- ROOM AIR 95%
[2020-05-17] MEDS: APIXABAN 5 MG TABLET PO ×2 (14:44→21:31)
[2020-05-17 16:09] LABS: Troponin I 0.024 ng/mL (0.01-0.034)
--- NOTE | 2020-05-17 19:05 | PC.NURSE ---
Addendum entered by Kylah Davies R.N. 05/17/20 23:41: Diltiazem gtts down to 2.5 mg/hr at 2029. PO metoprolol 50 mg XL given at 2129. Diltiazem gtts turned off at 0. Pt remains in a-fib, mostly CVR, HR 70s-90s. Occasionally as high as 100. SBP remains WNL at 133/94. Pt is sleeping. Placed on 2 L NC for intermittent desaturations to mid 80s. Hospitalist notified. Original Note: Pt remains in a-fib, CVR to RVR at times. Dilt gtts at 5 mg/hr. Will give 50 mg po metoprolol XL this shift per MD order. Pt with neuro intact to baseline. A and O x3. Denies pain, denies chest-pressure/tightness or SOB. SBP high 130s. Pt on RA, lungs CTA. SPO2 90-94%. Pt denies nausea, tolerating diet. Pt given 40 mg iv lasix with good uop. Clear yellow urine, using urinal to void without assistance. Pt with no MSK deficits. SB assist for fall prevention. Call light within reach, pt instructed to call for assistance with transferring. Will continue to monitor, notify MD with changes.
[2020-05-17 21:04] LABS: D Dimer 210 ng/mL (<230)
[2020-05-17] MEDS: METOPROLOL ER 25 MG TABLET 50 MG PO (21:30)
[2020-05-17] MEDS: ATORVASTATIN 20 MG TABLET PO (21:30)
[2020-05-18] VITALS (14 sets, daily range): BP systolic 117–155; BP diastolic 60–96; PULSE 62–107; RESP 16–22; TEMP 36.2–36.9; O2SAT 91–97
[2020-05-18 04:32] LABS: Creatine Kinase 167 U/L (55-170)
[2020-05-18 04:45] LABS: Troponin I 0.017 ng/mL (0.01-0.034)
[2020-05-18 04:47] LABS: CKMB % Relative Index 1.7 % (1.5-5.0); Creatine Kinase MB 2.89 ng/mL (<2.37)
[2020-05-18 04:48] LABS: Add Manual Diff / Slide Review NO; Basophils Absolute Auto 100 /uL (0-100); Basophils Percent Auto 0.8 % (0-2); Eosinophils Absolute Auto 500 /uL (0-450); Eosinophils Percent Auto 4.7 % (2-4); Hematocrit 43.5 % (41-53); Hemoglobin 14.4 g/dL (13.5-17.5); Lymphocytes Absolute Auto 1300 /uL (1100-4500); Lymphocytes Percent Auto 12.9 % (25-40); Mean Corpuscular HGB Conc 33.2 % (30-36); Mean Corpuscular Hemoglobin 29.9 PG (26-34); Mean Corpuscular Volume 90.2 fL (80-100); Monocytes Absolute Auto 1000 /uL (0-900); Monocytes Percent Auto 10.1 % (3-14); Neutrophils Absolute Auto 7100 /uL (1500-7000); Neutrophils Percent Auto 71.5 % (50-75); Platelet Count 230 X10^3/uL (150-400); Red Blood Cell Count 4.82 X10^6/uL (4.5-5.9); Red Cell Distribution Width 12.8 % (11.6-14.8)
[2020-05-18 04:53] LABS: Alanine Aminotransferase 73 IU/L (<50); Albumin 3.7 g/dL (3.5-5.0); Albumin Globulin Ratio 1.6 (1.0-2.8); Alkaline Phosphatase 49 U/L (38-126); Aspartate Aminotransferase 35 IU/L (17-59); BUN Creatinine Ratio 18.5 (6-22); Bilirubin Unconjugated 0.9 mg/dL (0.0-1.1); Blood Urea Nitrogen 20 mg/dL (9-20); Carbon Dioxide 33 mmol/L (22-32); Chloride 103 mmol/L (98-107); Cholesterol 128 mg/dL (140-199); Estimated Glomerular Filt Rate > 60.0 mL/min (>60); Globulin 2.3 g/dL (1.7-4.1); Glucose 126 mg/dL (80-110); HDL Cholesterol 33 mg/dL (40-60); HEMOLYSIS < 15 (0-50); LDL Cholesterol Calculated 80 mg/dL (<100); Magnesium 2.2 mg/dL (1.6-2.3); Potassium 5.2 mmol/L (3.4-5.1); Sodium 139 mmol/L (137-145); Triglycerides 74 mg/dL (35-150)
--- NOTE | 2020-05-18 05:02 | PC.NURSE ---
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 Sats ranging from 88-94% on 2L Toni PALM ARNP notified of sats and apnic periods. No orders received. Patient has remained in a fib, cvr/rvr with rate predominantly in the 80s. EKG obtained this AM for what appeard to be frequent PVCs, cardiac enzymes also added to morning labs. Patient has not been out of bed during the shift, but has voided in urinal x2. Patient remains AOx3. Patient stated he felt better, with less shortness of breath noted. Patient placed on portable tele and transferred to room 210. Report given to IMMANUEL Beckman. Will continue to monitor patient.
[2020-05-18] MEDS: FUROSEMIDE 40 MG/4 ML VIAL IV ×2 (08:42→17:13)
[2020-05-18] MEDS: APIXABAN 5 MG TABLET PO ×2 (08:43→20:27)
[2020-05-18] MEDS: METOPROLOL ER 25 MG TABLET 50 MG PO (08:43)
[2020-05-18] MEDS: INFLUENZA VACCINE 0.5 ML SYRINGE IM (08:44)
[2020-05-18] MEDS: SODIUM CHLORIDE 0.9% FLUSH 10 ML IV ×2 (08:44→20:27)
[2020-05-18] MEDS: METOPROLOL ER 25 MG TABLET PO (10:44)
--- NOTE | 2020-05-18 12:01 | PM.PN.1 ---
Subjective Subjective Date Patient Seen: 05/18/20 Time Patient Seen: 12:01 Interval history: Cornell Moore is a 64-year-old male with a past medical history of hypertension hyperlipidemia who presented with dyspnea on exertion and is admitted with atrial fibrillation with rapid ventricular response and possible acute heart failure. Echocardiogram is still currently pending. His dyspnea on exertion is improved today after Lasix therapy, but he still gets tachycardic into the 120s to 130s with ambulation. He denies any chest pain or pressure, nausea, vomiting, diaphoresis. He feels much improved this morning. Exam Vital Signs (past 8 hours): - 05/18/20 08:10 05/18/20 08:43 05/18/20 10:44 Temperature 97.4 F L Pulse Rate 89 107 H 101 H Respiratory Rate 18 Blood Pressure 144/80 H 126/60 Pulse Oximetry 94 Oxygen Delivery Method Nasal Cannula Oxygen Flow Rate 2.0 Narrative Exam Narrative: GENERAL APPEARANCE: Well developed, well nourished, in no acute distress. Obese with a BMI of 35.2. SKIN: Inspection of the skin reveals no rashes, ulcerations or petechiae. HEENT: Normocephalic atraumatic, extraocular muscles are intact, oropharynx is clear and mucous membranes are moist, neck is supple without adenopathy NECK: Supple and symmetric. There was no thyroid enlargement, and no tenderness, or masses were felt. CHEST: Normal AP diameter and normal contour without any kyphoscoliosis. LUNGS: Auscultation of the lungs revealed no wheezing, poor effort but mild bibasilar crackles. CARDIOVASCULAR: Tachycardic rate with irregularly irregular rhythm, without any murmurs, gallops, rubs. Peripheral pulses were 2+ and symmetric. ABDOMEN: Soft and nontender with normal bowel sounds. No ascites was noted. MUSCULOSKELETAL: There was no tenderness or effusions noted. Muscle strength and tone were normal. EXTREMITIES: No cyanosis, clubbing or edema. NEUROLOGIC: Alert and oriented x 3. Normal affect. Gait was normal. Strength is +5/5 in the Upper Extremities and Lower Extremities Bilaterally. Sensation to touch was normal. Objective Labs Result Diagrams: 05/18/20 04:13 05/18/20 04:13 Labs: Laboratory Results - last 24 hr 05/17/20 05/17/20 05/17/20 15:35 17:50 20:48 WBC RBC Hgb Hct MCV MCH MCHC RDW Plt Count Neut % (Auto) Lymph % (Auto) Robertson % (Auto) Eos % (Auto) Baso % (Auto) Neut # (Auto) Lymph # (Auto) Robertson # (Auto) Eos # (Auto) Baso # (Auto) D-Dimer 210 Sodium Potassium Chloride Carbon Dioxide BUN Creatinine Estimated GFR BUN/Creatinine Ratio Glucose Calcium Magnesium Total Bilirubin Conjugated Bilirubin Unconjugated Bilirubin AST ALT Alkaline Phosphatase Total Creatine Kinase CK-MB (CK-2) CK-MB (CK-2) Rel Index Troponin I 0.024 Total Protein Albumin Globulin Albumin/Globulin Ratio Triglycerides Cholesterol LDL Cholesterol, Calc HDL Cholesterol Nasal Screen MRSA (PCR) Negative for mrsa 05/18/20 05/18/20 05/18/20 04:13 04:13 04:13 WBC 10.0 RBC 4.82 Hgb 14.4 Hct 43.5 MCV 90.2 MCH 29.9 MCHC 33.2 RDW 12.8 Plt Count 230 Neut % (Auto) 71.5 Lymph % (Auto) 12.9 L Robertson % (Auto) 10.1 Eos % (Auto) 4.7 H Baso % (Auto) 0.8 Neut # (Auto) 7100 H Lymph # (Auto) 1300 Robertson # (Auto) 1000 H Eos # (Auto) 500 H Baso # (Auto) 100 D-Dimer Sodium 139 Potassium 5.2 H Chloride 103 Carbon Dioxide 33 H BUN 20 Creatinine 1.08 Estimated GFR > 60.0 BUN/Creatinine Ratio 18.5 Glucose 126 H Calcium 9.0 Magnesium 2.2 Total Bilirubin 1.0 Conjugated Bilirubin 0.0 Unconjugated Bilirubin 0.9 AST 35 ALT 73 H Alkaline Phosphatase 49 Total Creatine Kinase 167 CK-MB (CK-2) 2.89 H D CK-MB (CK-2) Rel Index 1.7 Troponin I 0.017 Total Protein 6.0 L Albumin 3.7 Globulin 2.3 Albumin/Globulin Ratio 1.6 Triglycerides 74 Cholesterol 128 L LDL Cholesterol, Calc 80 HDL Cholesterol 33 L Nasal Screen MRSA (PCR) Assessment & Plan Assessment & Plan narrative: Cornell Moore is a 64-year-old male with a past medical history of hypertension hyperlipidemia who presented with dyspnea on exertion worsened since yesterday evening admitted with atrial fibrillation with rapid ventricular response. 1. Atrial fibrillation with rapid ventricular response, new diagnosis, present on admission -diltiazem infusion stopped. Metoprolol increased to 75 mg BID. Continue to increase pending TTE. Heart rate still uncontrolled with ambulation. -continue apixaban 5 mg BID, CHADS-VASC currently 1 however given CXR suspect CHF which would make score 2. -continue to diurese given CXR appearance, patient appears euvolemic on exam but still with with bibasilar crackles. -TTE ordered, delayed due to availability. -troponins within normal limits x3. 2. acute heart failure, unknown if systolic or diastolic, present on exam. - Patient euvolemic on exam but CXR showing findings highly consistent with acute CHF. O2 saturations borderline at 89% on room air but improving with lasix therapy since arrival to the unit. ProBNP 1260 on admission. - suspect etiology secondary to afib, further etiologies include GLADYS or EtOH use. - continue diuresis with 40 mg IV BID - TTE as noted above. 3. HTN - hold home amlodipine in favor of diuresis and rate control agents 4. HLD - continue home lipitor 20 mg 5. EtOH abuse - - patient with at least 2 beers and wine nightly. No prior history of withdrawal. Will continue to monitor, felt to be low risk for withdrawal and no need for CIWA protocol currently. Code: full, surrogate decision maker is the patient's sister DVT: started on apixaban Diet: Heart healthy. Dispo: Admitted observation status, possible discharge home tomorrow if rate is improved, TTE performed, and symptoms improved. COVID-19 COVID-19 status: Negative
--- NOTE | 2020-05-18 12:35 | CM.IDA ---
Initial DCP Assessment Note Patient is a 64 yo male, resident of [place]. Patient admitted w/ SOB, found to be in afib w/rapid ventricular response and acute heart failure, PMH includes HTN, HLD and ETOH use of approx 3+ drinks nightly but is considered low risk for w/d. PCP: Dr Garber Payer: [facility] Met w/patient this morning to introduce role. Dr Uribe expects patient will stay this evening, possible DC home tomorrow. 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 Patient does not anticipate any needs from this BUSINESS SERVICES ASSISTANT. Will remain available in case any DC needs or concerns arise. 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 No Advance Directives on File No History Provided By Patient Household Members friend(s),none Type of transportation used prior to Drives own vehicle admit Independent with ADL's Yes Is patient alert and oriented? Yes Barriers to Discharge No Transportation Arrangement friends/family Referrals Initiated None needed
[2020-05-18] MEDS: ATORVASTATIN 20 MG TABLET PO (20:27)
[2020-05-18] MEDS: METOPROLOL ER 25 MG TABLET 75 MG PO (20:27)
--- NOTE | 2020-05-19 01:57 | PC.NURSE ---
Patient assessed at 2353. Is alert and oriented. Breath sounds CTA with sat of 93% with oxygen on per NC at 2L/min; reportedly desats when asleep so is on continuous oximetry to monitor. HR irregular and telemetry reading was afib CVR with premature ventricular contractions. Denies nausea. BT present and reports he had a BM yesterday. Denies dysuria, frequency or urgency with urination; is using urinal at bedside. Is able to move himself in bed. When out of bed provided SBA for safety although denies any weakness or unsteadiness. Denies pain. SCD's not ordered. Fall risk score is moderate; patient calls for assistance appropriately.
[2020-05-19 04:56] VITALS: BP 134/76; PULSE 83; RESP 16; TEMP 36.4; O2SAT 98
[2020-05-19 06:30] LABS: Add Manual Diff / Slide Review NO; Basophils Absolute Auto 100 /uL (0-100); Basophils Percent Auto 0.8 % (0-2); Eosinophils Absolute Auto 400 /uL (0-450); Eosinophils Percent Auto 4.1 % (2-4); Hematocrit 47.2 % (41-53); Hemoglobin 15.7 g/dL (13.5-17.5); Lymphocytes Absolute Auto 1100 /uL (1100-4500); Lymphocytes Percent Auto 10.5 % (25-40); Mean Corpuscular HGB Conc 33.3 % (30-36); Mean Corpuscular Volume 90.2 fL (80-100); Monocytes Absolute Auto 900 /uL (0-900); Monocytes Percent Auto 9.1 % (3-14); Neutrophils Absolute Auto 7600 /uL (1500-7000); Neutrophils Percent Auto 75.5 % (50-75); Platelet Count 227 X10^3/uL (150-400); Red Blood Cell Count 5.23 X10^6/uL (4.5-5.9); Red Cell Distribution Width 12.8 % (11.6-14.8); White Blood Cell Count 10.1 X10^3/uL (4.5-11.0)
[2020-05-19 06:44] LABS: Alanine Aminotransferase 59 IU/L (<50); Albumin Globulin Ratio 1.7 (1.0-2.8); Alkaline Phosphatase 53 U/L (38-126); Aspartate Aminotransferase 25 IU/L (17-59); BUN Creatinine Ratio 28.1 (6-22); Bilirubin Total 1.1 mg/dL (0.2-1.3); Blood Urea Nitrogen 27 mg/dL (9-20); Carbon Dioxide 30 mmol/L (22-32); Chloride 104 mmol/L (98-107); Estimated Glomerular Filt Rate > 60.0 mL/min (>60); Globulin 2.4 g/dL (1.7-4.1); Glucose 99 mg/dL (80-110); HEMOLYSIS < 15 (0-50); Magnesium 2.2 mg/dL (1.6-2.3); Potassium 4.2 mmol/L (3.4-5.1); Sodium 138 mmol/L (137-145); Total Protein 6.4 g/dL (6.3-8.2)
[2020-05-19 07:30] VITALS: O2SAT 96
[2020-05-19 07:39] VITALS: O2SAT 96
[2020-05-19 07:47] VITALS: BP 127/65; PULSE 94; RESP 16; TEMP 36.2; O2SAT 95
[2020-05-19 08:10] VITALS: O2SAT 94
[2020-05-19 08:16] VITALS: BP 127/65; PULSE 94
[2020-05-19] MEDS: METOPROLOL ER 50 MG TABLET 100 MG PO (08:16)
[2020-05-19] MEDS: FUROSEMIDE 40 MG TABLET PO (08:16)
[2020-05-19] MEDS: lisinopriL 5 MG TABLET PO (08:16)
[2020-05-19] MEDS: APIXABAN 5 MG TABLET PO (08:16)
[2020-05-19] MEDS: SODIUM CHLORIDE 0.9% FLUSH 10 ML IV (08:17)
--- NOTE | 2020-05-19 11:44 | P.DS_ITS ---
History of Present Illness History of Present Illness Date Patient Seen: 05/17/20 Chief complaint: shortness of breath, covid Narrative: Written by Dr. Uribe: Julio Moore is a 64-year-old male with a past medical history of hypertension hyperlipidemia who presented with dyspnea on exertion worsened since yesterday evening. 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 He was concerned about COVID-19 and decided to come to the emergency room for further testing. He does report some worsened dyspnea on exertion over the past week, but not as bad as this morning. He denies any chest pain, nausea, vomiting, diaphoresis, palpitations, orthopnea, lower extremity edema, or PND. He denies any recent cough, fever, or chills. The patient does state that he snores at night but does not know if he has sleep apnea, he further endorses a couple of beers nightly as well as a glass of wine. He has never had symptoms of alcohol withdrawal when he has stopped drinking. In the emergency room, the patient was tachycardic to 127 and mildly hypertensive. He was saturating well on room air. Initial laboratory evaluation revealed an unremarkable CBC, coagulation studies. Chemistries revealed a mildly elevated glucose at 119, ALT of 84, CK of 326 with an elevated MB portion at 6.07, troponin was 0.024. ProBNP was 1260. EKG showed atrial fibrillation with rapid ventricular response with a rate of 115. There was nonspecific ST depression with precordial leads showing less than 1 mm deviation. Chest x-ray shows bilateral basilar patchy infiltrates consistent with fluid overload. In emergency room he received IV diltiazem which improved his rate, he was then started on a diltiazem infusion. He was further given a dose of Lasix. He is admitted to the ICU under observation care for atrial fibrillation with rapid ventricular response on a diltiazem infusion. He also received a single dose of 25 mg of metoprolol succinate. Discharge Providers Provider Date of admission: 05/17/20 11:48 Discharge Date: 05/19/20 Primary care physician: Rey Garber MD Discharge provider: Pamela Goldstein DO Summary Hospital Course Discharge Diagnosis: 1. Acute atrial fibrillation with rapid ventricular response, new diagnosis, present on admission. RVR resolved. 2. Acute systolic congestive heart failure with exacerbation, newly diagnosed, present on admission. Acute exacerbation resolved. 3. Hypertension, chronic, present on admission. Stable. 4. Hyperlipidemia, chronic, present on admission. Stable. 5. Alcohol abuse, chronic, present on admission. Stable. 6. Probable GLADYS, chronic, present on admission. Stable. Hospital Course: Julio Moore is a 64-year-old male with a past medical history significant for hypertension and hyperlipidemia who presented to the ED with dyspnea on exertion and found to be in atrial fibrillation with rapid ventricular response. 1. Acute atrial fibrillation with rapid ventricular response, new diagnosis, present on admission. RVR resolved. -Patient presented with progressive worsening dyspnea on exertion. -Received diltiazem 20 mg IV x1 in ED and started on diltiazem gtt. Patient was slowly titrated off of diltiazem gtt. Patient was started on metoprolol succi darryn which was slowly titrated up to 100 mg twice daily. -CHADS2 Vasc 2. Started and continued Eliquis 5 mg twice daily. -Troponin within normal limits x3. -Echocardiogram as below. -Continued to monitor closely on telemetry. Patient remained in atrial fibrillation with heart rate 90s to low 100s. 2. Acute systolic congestive heart failure with exacerbation, newly diagnosed, present on admission. Acute exacerbation resolved. -Suspect etiology is tachyarrhythmia induced and possibly contribution from untreated GLADYS and/or EtOH use. -Patient appeared euvolemic on exam but chest x-ray demonstrated pulmonary edema consistent with acute CHF. His oxygen saturations were borderline at 89% on r oom air but improved with IV furosemide. -Initial ProBNP 1260. -Echocardiogram demonstrated normal left ventricular size with moderately reduced sysotlic function (EF 35-40%), normal right ventricular size and function, left atrium is severely dilated, mild mitral regurgitation, RVSP 37 mmHg based on an estimated right atrial pressure of 8 mmHg, aortic root is moderately dilated at 4.4cm and ascending aorta is mild-moderately enlarged at 4.2cm. -Continued furosemide 40 mg IV twice daily. Discharged home on furosemide 40 mg daily. -Continued to monitor strict I&Os and daily weights. Net -5 L. -Continued low-sodium diet and 1.5 L fluid restriction. 3. Hypertension, chronic, present on admission. Stable. -Started and continued metoprolol succinate 100 mg twice daily and lisinopril 5 mg daily as above. Held home amlodipine 5 mg daily while receiving IV diuresis and restarted at time of discharge. 4. Hyperlipidemia, chronic, present on admission. Stable. -Continued home atorvastatin 20 mg daily. 5. Alcohol abuse, chronic, present on admission. Stable. -Patient with at least 2 beers and wine nightly. No prior history of alcohol withdrawal, DTs or alcohol withdrawal seizure. -Continued to monitor for alcohol withdrawal of which the patient had no signs or symptoms throughout hospitalization. 6. Probable GLADYS, chronic, present on admission. Stable. -Recommend outpatient sleep study to assess for GLADYS and implementation of CPAP if present. Exam Vital Signs (past 8 hours): - 05/19/20 04:56 05/19/20 07:30 05/19/20 07:39 Temperature 97.6 F Pulse Rate 83 Respiratory Rate 16 Blood Pressure 134/76 Pulse Oximetry 98 96 96 05/19/20 07:47 05/19/20 08:10 05/19/20 08:16 Temperature 97.1 F L Pulse Rate 94 H 94 H Respiratory Rate 16 Blood Pressure 127/65 127/65 Pulse Oximetry 95 94 Oxygen Delivery Method Room Air Oxygen Flow Rate 0 Narrative Exam Narrative: General: Older gentleman sitting in bed and in no acute distress, well- developed, well-nourished, appropriately interactive. HEENT: Normocephalic, atraumatic. External ears without defect. Pupils equal, round, and reactive to light. Anicteric sclerae, moist conjunctivae, and no lid lag. Oropharynx free of erythema and cobble stoning with moist mucosa. Neck: Supple with full range of motion. No jugular venous distension. No lymphadenopathy or thyromegaly. Cardiovascular: Irregularly regular without murmurs, rubs, or gallops appreciated. Pulmonary: Clear to auscultation bilaterally without crackles, wheezes, or rhonchi. Normal respiratory effort with no use of accessory muscles. Abdomen: Soft, obese, bowel sounds present, nontender, nondistended. No hepatosplenomegaly or masses appreciated. Extremities: No clubbing, cyanosis, or edema. Skin: Normal temperature, turgor, and texture; no rash, ulcers, or subcutaneous nodules appreciated. Neurological: Cranial nerves grossly intact. Psychiatric: Normal mood and affect. Alert and oriented to person, place, and time. Objective Labs Result Diagrams: 05/19/20 05:57 05/19/20 05:57 Labs: Laboratory Results - last 24 hr 05/19/20 05/19/20 05:57 05:57 WBC 10.1 RBC 5.23 Hgb 15.7 Hct 47.2 MCV 90.2 MCH 30.0 MCHC 33.3 RDW 12.8 Plt Count 227 Neut % (Auto) 75.5 H Lymph % (Auto) 10.5 L Hill % (Auto) 9.1 Eos % (Auto) 4.1 H Baso % (Auto) 0.8 Neut # (Auto) 7600 H Lymph # (Auto) 1100 Hill # (Auto) 900 Eos # (Auto) 400 Baso # (Auto) 100 Sodium 138 Potassium 4.2 Chloride 104 Carbon Dioxide 30 BUN 27 H Creatinine 0.96 Estimated GFR > 60.0 BUN/Creatinine Ratio 28.1 H Glucose 99 Calcium 9.0 Magnesium 2.2 Total Bilirubin 1.1 Conjugated Bilirubin 0.0 Unconjugated Bilirubin 1.0 AST 25 ALT 59 H Alkaline Phosphatase 53 Total Protein 6.4 Albumin 4.0 Globulin 2.4 Albumin/Globulin Ratio 1.7 Discharge Plan Discharge Plan Patient Disposition: Home Provider Discharge Comment: You are being discharged home. You had atrial fibrillation with a fast heart rate. You also have newly diagnosed systolic congestive heart failure with ejection fraction 35-40% (normal 55-60%). You have been started on metoprolol succinate 100 mg twice daily to control your heart rate and improve your heart function, lisinopril 5 mg daily to improve heart function and a diuretic called furosemide 40 mg daily. You have been prescribed a blood thinner called Eliquis 5 mg twice daily to prevent blood clots. You have been provided heart failure teaching. Please try to abstain from alcohol indefinitely. Recommend referral to Sleep Medicine for a sleep study to assess for obstructive sleep apnea and treat if present. Please follow-up with your primary care provider, Dr. Garber, in the next 1 week regar ding your hospitalization. Discharge orders & Medications Prescriptions: New Eliquis 5 mg Tablet 5 mg PO BID Qty: 60 RF: 0 furosemide 40 mg Tablet 40 mg PO DAILY Qty: 30 RF: 0 lisinopril 5 mg Tablet 5 mg PO DAILY Qty: 30 RF: 0 metoprolol succinate 50 mg Tablet Extended Release 24 Hr 100 mg PO BID Qty: 60 RF: 0 Continued amlodipine-atorvastatin 5-20 mg Tablet 1 tab PO DAILY RF: 0 Follow up/Referrals: Rey Garber MD [Primary Care Provider] - 05/27/20 3:45 pm (Appt:05/27 check in at 3:40 for a 4:[address] garber @ [facility] ) Diet/Activity/Treatments Diet: Low-fat, Low-sodium and Low-cholesterol Diet comment: Less than 2g sodium a day, 1.5 L fluid restriction Visit Report/Discharge Packet Instructions: Heart-Healthy Diet, DI for Heart Failure, DI for Polysomnography, DI for Atrial Fibrillation, Fluid Restricted Diet, Low-Sodium Diet, How to Monitor Your Blood Pressure at Home, Apixaban, Metoprolol (By mouth), Lisinopril (By mouth) Discharge Data Primary Care Provider: Rey Garber V
--- NOTE | 2020-05-19 13:34 | PC.NURSE ---
Addendum entered by Rosy Lynn R.N. 05/19/20 13:51: Pt left unit at 1348 in no distress via wheelchair with FAMILY SERVICES MANAGER escort with all belongings. Pt given back his wallet from unit safe with all contents per pt. Original Note: Day [facility]ift- Discharge summary packet reviewed with pt from [id number]. Reviewed but not limited to, Monitoring blood pressure/pulse, daily weight, modifying diet, limiting sodium intake, 1.5 fluid restriction, medication/prescription review, information on sleep study as out patient. Pt states he has a blood pressure machine at home, explained to create a log to bring to his Dr's office related to eating/fluid habits, pulse and blood pressure information, daily weights. Pt also given information on advanced directive pamphlet and POLST form to review with his PCP. Also given handout on Heart Failure Guideline green/yellow/red, explained to keep visible on fridge for reference. Per Dr. Goldstein, pt IS to continue Amlodipine-HCTZ home med upon discharge. Pt aware of his F/U appt with PCP Dr. Garber. No further voiced concerns. 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
== END 2020-05-19 13:48 | disposition home or self-care (01) | DRG 308 ==
LOC: ED 11:45 → ICU 14:51 → AC 05-18 10:49 → ICU 04-24 13:25
PROVIDERS: Nurse Practitioner Adult Health; Admitting Provider Internal Medicine; Emergency Provider Emergency Medicine; PCP Internal Medicine; Referring Provider Emergency Medicine; Visit Provider Internal Medicine
DX: I48.91 Unspecified atrial fibrillation (principal); I50.21 Acute systolic (congestive) heart failure; I11.0 Hypertensive heart disease with heart failure; E78.5 Hyperlipidemia, unspecified; G47.33 Obstructive sleep apnea (adult) (pediatric); F10.10 Alcohol abuse, uncomplicated; Z11.59 Encounter for screening for other viral diseases
CPT/HCPCS: 36415; 71045; 80048; 80053; 80061; 80076; 82550; 82553; 82962; 83690; 83735; 83880; 84443; 84484; 85025; 85379; 85610; 85730; 87635; 87797; 90471; 90656; 93005; 93306; 94760; 96365; 96375; 96376; 99283; 99284; G0378; J1940; Q2038

== ENCOUNTER → 2020-05-27 18:43 | Outpatient (ROUT) | payer OTHER, SELFPAY ==
[2020-05-17 12:44] VITALS: BMI 35.2
[2020-05-27 19:04] LABS: Add Manual Diff / Slide Review NO; Basophils Absolute Auto 100 /uL (0-100); Basophils Percent Auto 0.7 % (0-2); Eosinophils Absolute Auto 200 /uL (0-450); Eosinophils Percent Auto 2.2 % (2-4); Hematocrit 44.8 % (41-53); Lymphocytes Absolute Auto 1500 /uL (1100-4500); Lymphocytes Percent Auto 14.3 % (25-40); Mean Corpuscular HGB Conc 33.6 % (30-36); Mean Corpuscular Hemoglobin 29.7 PG (26-34); Mean Corpuscular Volume 88.6 fL (80-100); Monocytes Absolute Auto 1000 /uL (0-900); Monocytes Percent Auto 9.5 % (3-14); Neutrophils Absolute Auto 7600 /uL (1500-7000); Neutrophils Percent Auto 73.3 % (50-75); Platelet Count 191 X10^3/uL (150-400); Red Blood Cell Count 5.05 X10^6/uL (4.5-5.9); Red Cell Distribution Width 12.8 % (11.6-14.8); White Blood Cell Count 10.4 X10^3/uL (4.5-11.0)
[2020-05-27 19:13] LABS: Alanine Aminotransferase 64 IU/L (<50); Albumin 3.9 g/dL (3.5-5.0); Albumin Globulin Ratio 1.7 (1.0-2.8); Alkaline Phosphatase 60 U/L (38-126); Aspartate Aminotransferase 32 IU/L (17-59); BUN Creatinine Ratio 31.1 (6-22); Bilirubin Total 0.6 mg/dL (0.2-1.3); Blood Urea Nitrogen 32 mg/dL (9-20); Calcium 9.3 mg/dL (8.4-10.2); Carbon Dioxide 27 mmol/L (22-32); Chloride 107 mmol/L (98-107); Cholesterol 129 mg/dL (140-199); Estimated Glomerular Filt Rate > 60.0 mL/min (>60); Globulin 2.3 g/dL (1.7-4.1); Glucose 104 mg/dL (80-110); HDL Cholesterol 31 mg/dL (40-60); HEMOLYSIS < 15 (0-50); LDL Cholesterol Calculated 71 mg/dL (<100); Potassium 4.6 mmol/L (3.4-5.1); Sodium 140 mmol/L (137-145); Total Protein 6.2 g/dL (6.3-8.2); Triglycerides 136 mg/dL (35-150)
[2020-05-27 19:41] LABS: Prostate Specific Antigen 0.595 ng/mL (0.10-4.00); TSH w/ Reflex to FT4 3.95 uIU/mL (0.47-4.68)
== END ==
PROVIDERS: PCP Internal Medicine; Visit Provider Internal Medicine
DX: Z00.00 Encounter for general adult medical examination without abnormal findings (principal); E78.2 Mixed hyperlipidemia; I48.0 Paroxysmal atrial fibrillation
CPT/HCPCS: 80053; 80061; 84153; 84443; 85025

== ENCOUNTER → 2020-08-01 19:27 | Outpatient (ROUT) | payer BC, SELFPAY ==
[2020-05-17 12:44] VITALS: BMI 35.2
[2020-08-01 20:19] LABS: BUN Creatinine Ratio 27.9 (6-22); Blood Urea Nitrogen 29 mg/dL (9-20); Calcium 9.5 mg/dL (8.4-10.2); Carbon Dioxide 31 mmol/L (22-32); Chloride 103 mmol/L (98-107); Estimated Glomerular Filt Rate > 60.0 mL/min (>60); Glucose 108 mg/dL (80-110); HEMOLYSIS < 15 (0-50); Potassium 4.5 mmol/L (3.4-5.1); Sodium 139 mmol/L (137-145)
== END ==
PROVIDERS: PCP Internal Medicine; Visit Provider Internal Medicine
DX: I48.0 Paroxysmal atrial fibrillation (principal)
CPT/HCPCS: 80048

== ENCOUNTER → 2020-10-10 07:32 | Outpatient (CLI) | payer BC, SELFPAY ==
[2020-05-17 12:44] VITALS: BMI 35.2
[2020-10-10 08:13] LABS: BUN Creatinine Ratio 20.9 (6-22); Blood Urea Nitrogen 23 mg/dL (9-20); Calcium 9.7 mg/dL (8.4-10.2); Carbon Dioxide 30 mmol/L (22-32); Chloride 103 mmol/L (98-107); Estimated Glomerular Filt Rate > 60.0 mL/min (>60); Glucose 117 mg/dL (80-110); HEMOLYSIS < 15 (0-50); Potassium 4.4 mmol/L (3.4-5.1); Sodium 140 mmol/L (137-145)
[2020-10-10 08:22] LABS: NT-proBNP (BNP-Adult 18+) 1700 pg/mL (<125)
== END ==
PROVIDERS: PCP Internal Medicine; Referring Provider Nurse Practitioner; Visit Provider Nurse Practitioner
DX: I48.91 Unspecified atrial fibrillation (principal); I50.22 Chronic systolic (congestive) heart failure
CPT/HCPCS: 36415; 80048; 83880

== ENCOUNTER → 2020-10-28 07:28 | Outpatient (CLI) | payer BC, SELFPAY ==
[2020-05-17 12:44] VITALS: BMI 35.2
[2020-10-28] MEDS: COVID-19 VACC #1, MRNA(MOD) 100 MCG/0.5 ML VIAL IM (07:41)
== END ==
PROVIDERS: PCP Internal Medicine; Visit Provider Internal Medicine
DX: Z23 Encounter for immunization (principal)
CPT/HCPCS: 0011A; 91301

== ENCOUNTER → 2020-11-23 07:30 | Outpatient (CLI) | payer BC, SELFPAY ==
[2020-05-17 12:44] VITALS: BMI 35.2
[2020-11-23] MEDS: COVID-19 VACC #2, MRNA(MOD) 100 MCG/0.5 ML VIAL IM (07:44)
== END ==
PROVIDERS: PCP Internal Medicine; Visit Provider Internal Medicine
DX: Z23 Encounter for immunization (principal)
CPT/HCPCS: 0012A; 91301

== ENCOUNTER → 2021-05-19 12:07 | Outpatient (CLI) | payer BC, SELFPAY ==
[2020-05-17 12:44] VITALS: BMI 35.2
[2021-05-19 14:59] LABS: Thyroid Stimulating Hormone 2.85 uIU/mL (0.47-4.68)
== END ==
PROVIDERS: PCP Internal Medicine; Referring Provider Internal Medicine Cardiovascular Disease; Visit Provider Internal Medicine Cardiovascular Disease
DX: Z79.899 Other long term (current) drug therapy (principal)
CPT/HCPCS: 36415; 84443

== ENCOUNTER → 2021-06-13 13:52 | Outpatient (CLI) | payer BC, SELFPAY ==
[2020-05-17 12:44] VITALS: BMI 35.2
[2021-06-13 14:33] LABS: COVID19 -Nasal RAPID Negative (Negative)
== END ==
PROVIDERS: PCP Internal Medicine; Referring Provider Internal Medicine; Visit Provider Internal Medicine
DX: Z20.822 Contact with and (suspected) exposure to COVID-19 (principal)
CPT/HCPCS: 87635; C9803

== ENCOUNTER → 2021-06-14 08:49 | Outpatient (CLI) | payer BC, SELFPAY ==
[2020-05-17 12:44] VITALS: BMI 35.2
--- NOTE | 2021-06-21 09:48 | PM.PFT.1 ---
Pulmonary Function Test Referral & Results Date Patient Seen: 06/14/21 Requesting provider: Vladislav Stephen Results: The spirometry demonstrates an FVC of 4.87 L which is 105% of predicted. The FEV1 was measured at 4.1 L which is 117% of predicted. The FEV1/FVC ratio was 84 which is 112% of predicted. Lung volumes show an SVC of 5.03 L which is 107% of predicted. The diffusing capacity was measured at 26.24 which is 81% of predicted. The maximum voluntary ventilation was normal Interpretation: This study demonstrates normal spirometry There is a minimal reduction in diffusing capacity suggesting the possibility of some element of disease at the capillary alveolar level, unless patient is anemic
== END ==
PROVIDERS: PCP Internal Medicine; Referring Provider Internal Medicine Cardiovascular Disease; Visit Provider Internal Medicine Cardiovascular Disease
DX: Z79.899 Other long term (current) drug therapy (principal)
CPT/HCPCS: 94010; 94726; 94729

== ENCOUNTER → 2021-07-18 09:38 | Outpatient (CLI) | payer BC, SELFPAY ==
[2020-05-17 12:44] VITALS: BMI 35.2
[2021-07-18 11:03] LABS: COVID19 -Nasal RAPID Negative (Negative)
== END ==
PROVIDERS: PCP Internal Medicine; Referring Provider Family Medicine Sleep Medicine; Visit Provider Family Medicine Sleep Medicine
DX: Z20.822 Contact with and (suspected) exposure to COVID-19 (principal)
CPT/HCPCS: 87635; C9803

== ENCOUNTER → 2021-07-19 07:49 | Outpatient (CLI) | payer BC, SELFPAY ==
[2020-05-17 12:44] VITALS: BMI 35.2
--- NOTE | 2021-07-19 07:51 | DI.ECHO.S_ITS ---
[place]---------+ [facility] +---------+ : : [address] : : : : [id number] : : : : Phone: [phone] +---------+ Echocardiogram Report + + :Name: SRIDEVI BARKSDALE Study Date: 07/19/2021 Height: 70 in : :[facility] ReadingLocation: Weight: 235 lb : : Gender: Male BSA: 2.2 m2 : :: 1955 Age: 65 yrs BP: 147/99 mmHg: :Reason For Study: ATRIAL FIBRILLATION : :Ordering Physician: ANDREI, : :MARY Performed By: Elaine Houston : :Referring: MARY FORBES : + + Interpretation Summary The patient was in sinus rhythm with heart rates between 58-75 bpm during the exam. Previously patient was in A. fib. The left ventricle is normal in size. The ejection fraction is estimated to be 50-55%. Left ventricular systolic function has significantly improved compared to the previous exam. Previous LV ejection fraction 35 to 40%. The right ventricle is normal in size and function. No significant valvular pathology seen. The IVC is of normal diameter and collapses greater than 50% with a sniff. This suggests a low right atrial pressure of 3 mm Hg. Procedure: A two-dimensional transthoracic echocardiogram with color flow and Doppler was performed. The study quality was technically adequate. Comparison is made with the echocardiogram of 05/18/2020. The patient was in sinus rhythm with heart rates between 58-75 bpm during the exam. Left Ventricle: The left ventricle is normal in size. There is mild concentric left ventricular hypertrophy. There is no thrombus. The ejection fraction is estimated to be 50-55%. Left ventricular systolic function has significantly improved compared to the previous exam. There are no focal wall motion abnormalities. MV E/A: 1.1 Med Peak E' Alex: 4.6 cm/sec E/E' med: 8.3. Right Ventricle: The right ventricle is normal in size and function. Atria: The left atrium is severely dilated. The left atrium has remained unchanged in size since the prior echo exam. The right atrium is mildly dilated. There is no Doppler evidence for an interatrial shunt. Mitral Valve: The mitral valve leaflets appear borderline thickened, but open well. There is mild mitral regurgitation. Compared to the prior echo study, there has been no change in the severity of mitral regurgitation. Aortic Valve: The aortic valve is trileaflet. The aortic valve opens well. There is no aortic valve stenosis. There is mild aortic regurgitation. Compared to the prior echo study, there has been no change in the severity of aortic regurgitation. Tricuspid Valve: The tricuspid valve is normal in structure and function. There is mild tricuspid regurgitation. Pulmonary artery pressures cannot be estimated because of the lack of a measurable TR jet velocity but the IVC suggests a CVP of around 3 mmHg. Pulmonic Valve: The pulmonic valve leaflets are thin and pliable; valve motion is normal. There is trace pulmonic regurgitation. Great Vessels: The aortic root is mildly dilated. The ascending aorta is moderately enlarged. The IVC is of normal diameter and collapses greater than 50% with a sniff. This suggests a low right atrial pressure of 3 mm Hg. Pericardium/ Pleura There is no pericardial effusion. There is an anterior echo-free space consistent with a fat pad. There is no pleural effusion. MMode/2D Measurements & Calculations LVIDd: 5.4 cm LVOT diam: 2.7 cm LVIDs: 3.6 cm Ao root diam: 4.4 cm FS: 32.3 % asc Aorta Diam: 4.4 cm IVSd: 1.1 cm Ao Arch Diam (Prox Trans): 3.4 cm LVPWd: 1.2 cm LV uriostegui. diameter/BSA (cm/m^2): 2.4 LV sys. diameter/BSA (cm/m^2): 1.6 LA A2 area: 28.8 cm2 RA long axis: 6.0 cm LA A4 area: 29.2 cm2 RA area: 24.6 cm2 LA length (vol): 6.2 cm RA vol: 86.1 ml LA vol: 115.5 ml RA : 38.5 ml/m2 LA vol index: 51.7 ml/m2 IVC diam: 1.3 cm RVD1 (basal): 3.2 cm TAPSE: 1.3 cm Doppler Measurements & Calculations Ao V2 max: 95.9 cm/sec LVOT Max Alex: 72.2 cm/sec Ao V2 mean: 67.9 cm/sec LV V1 max P.1 mmHg Ao max P.7 mmHg LV V1 VTI: 13.4 cm Ao mean P.1 mmHg MARIMAR(I,D): 3.6 cm2 Ao V2 VTI: 20.7 cm MARIMAR(V,D): 4.2 cm2 sev ratio: 0.65 MARIMAR indexed to BSA (cm^2/m^2): 1.6 MV E max alex: 38.4 cm/sec PA V2 max: 75.6 cm/sec MV A max alex: 36.5 cm/sec PA V2 mean: 54.6 cm/sec MV E/A: 1.1 PA mean P.3 mmHg Med Peak E' Alex: 4.6 cm/sec PA pr(Accel): 34.5 mmHg E/E' med: 8.3 Lat Peak E' Alex: 9.0 cm/sec E/E' lat: 4.3 E/e' average: 6.3 MV dec time: 0.26 sec SV(LVOT): 74.3 ml Reading Physician:06:29 PM
--- NOTE | 2021-07-20 20:05 | DI.NM.S_ITS ---
DATE OF SERVICE: 07/19/2021 PROCEDURE: Pharmacological perfusion study. INDICATION: History of tachycardia -induced cardiomyopathy, congestive heart failure, atrial fibrillation. RADIOPHARMACEUTICAL: 24.4 millicurie technetium-99m Myoview IV was injected at stress and 12.5 millicurie technetium-99m Myoview IV was injected at rest. CARDIAC STRESS: The patient underwent IV Lexiscan perfusion study under the supervision of an attending staff. The patient received IV Lexiscan, as per protocol. He remained hemodynamically stable. Baseline blood pressure 110/78 and heart rate 61. No significant hypotension or hypertension. Baseline rhythm was sinus with left anterior fascicular block and some nonspecific ST changes. During Lexiscan, no convincing new ischemic changes or significant arrhythmias seen. The patient had mild shortness of breath and abdominal discomfort during Lexiscan infusion. RAW DATA: There is increased subdiaphragmatic activity. GATED STUDY: Resting LV ejection fraction 54 percent and stress LV ejection fraction 59 percent without any obvious wall motion abnormalities. Resting end- diastolic volume 141 mL, suggestive of LV enlargement. TID ratio 1.19, which is within normal limits. Lung/heart ratio 0.31, which is within normal limits. MYOCARDIAL PERFUSION SCAN: Stress supine, resting supine and stress prone images were compared to each other. Resting supine images revealed small size, mildly decreased perfusion of the basal anterior lateral wall, which got completely resolved during stress supine and stress prone images. Stress supine and stress prone images revealed normal myocardial perfusion. No convincing ischemia or infarction. CONCLUSION: I will call this study likely a normal myocardial perfusion study with normal stress supine and stress prone images. Preserved left ventricular function. No convincing ischemic changes. Rhythm sinus. Mildly dilated left ventricle. Overall, low-risk myocardial perfusion scan. Julio Moore - Chace/barrera doc#: [id number]/job#: [id number] dd: 07/20/2021 17:40:00 dt: 07/20/2021 19:44:00 DICTATING MD/COPIES TO: Vladislav Stephen MD COPIES MNE: AFSANEH;
== END ==
PROVIDERS: PCP Internal Medicine; Referring Provider Internal Medicine Cardiovascular Disease; Visit Provider Internal Medicine Cardiovascular Disease
DX: I48.91 Unspecified atrial fibrillation (principal); I51.7 Cardiomegaly
CPT/HCPCS: 78452; 93017; 93306; A9502; J2785

== ENCOUNTER → 2022-05-29 07:05 | Outpatient (CLI) | payer BC, SELFPAY ==
[2020-05-17 12:44] VITALS: BMI 35.2
[2022-05-29 08:07] LABS: Alanine Aminotransferase 56 IU/L (<50); Albumin 4.5 g/dL (3.5-5.0); Albumin Globulin Ratio 1.7 (1.0-2.8); Alkaline Phosphatase 56 U/L (38-126); Aspartate Aminotransferase 39 IU/L (17-59); BUN Creatinine Ratio 19.8 (6-22); Bilirubin Total 0.7 mg/dL (0.2-1.3); Blood Urea Nitrogen 24 mg/dL (9-20); Calcium 8.7 mg/dL (8.4-10.2); Carbon Dioxide 33 mmol/L (22-32); Chloride 99 mmol/L (98-107); Estimated Glomerular Filt Rate > 60 mL/min (>60); Globulin 2.7 g/dL (1.7-4.1); Glucose 107 mg/dL (80-110); HEMOLYSIS < 15 (0-50); Magnesium 2.2 mg/dL (1.6-2.3); Potassium 4.3 mmol/L (3.4-5.1); Sodium 140 mmol/L (137-145); Total Protein 7.2 g/dL (6.3-8.2)
== END ==
PROVIDERS: PCP Internal Medicine; Referring Provider Internal Medicine Cardiovascular Disease; Visit Provider Internal Medicine Cardiovascular Disease
DX: I10 Essential (primary) hypertension (principal); Z79.899 Other long term (current) drug therapy
CPT/HCPCS: 36415; 80053; 83735; 84443

== ENCOUNTER → 2022-07-12 17:13 | Outpatient (CLI) | payer BC, SELFPAY ==
[2020-05-17 12:44] VITALS: BMI 35.2
[2022-07-12 17:56] LABS: Hematocrit 47.8 % (41-53); Hemoglobin 16.2 g/dL (13.5-17.5); Mean Corpuscular HGB Conc 33.9 % (30-36); Mean Corpuscular Hemoglobin 30.4 PG (26-34); Mean Corpuscular Volume 89.7 fL (80-100); Platelet Count 179 X10^3/uL (150-400); Red Blood Cell Count 5.32 X10^6/uL (4.5-5.9); Red Cell Distribution Width 13.1 % (11.6-14.8); White Blood Cell Count 11.9 X10^3/uL (4.5-11.0)
[2022-07-12 18:29] LABS: Alanine Aminotransferase 44 IU/L (<50); Albumin 4.6 g/dL (3.5-5.0); Albumin Globulin Ratio 1.6 (1.0-2.8); Alkaline Phosphatase 64 U/L (38-126); Aspartate Aminotransferase 29 IU/L (17-59); BUN Creatinine Ratio 19.6 (6-22); Bilirubin Total 0.6 mg/dL (0.2-1.3); Blood Urea Nitrogen 22 mg/dL (9-20); Calcium 9.1 mg/dL (8.4-10.2); Carbon Dioxide 28 mmol/L (22-32); Chloride 101 mmol/L (98-107); Cholesterol 180 mg/dL (140-199); Estimated Glomerular Filt Rate > 60 mL/min (>60); Globulin 2.8 g/dL (1.7-4.1); Glucose 88 mg/dL (80-110); HDL Cholesterol 41 mg/dL (40-60); HEMOLYSIS < 15 (0-50); LDL Cholesterol Calculated 113 mg/dL (<100); Potassium 4.1 mmol/L (3.4-5.1); Sodium 141 mmol/L (137-145); Total Protein 7.4 g/dL (6.3-8.2); Triglycerides 132 mg/dL (35-150)
[2022-07-12 18:54] LABS: Prostate Specific Antigen Scrn 0.472 ng/mL (0.1-4.0)
== END ==
PROVIDERS: PCP Internal Medicine; Referring Provider Internal Medicine; Visit Provider Internal Medicine
DX: E78.2 Mixed hyperlipidemia (principal); I10 Essential (primary) hypertension; I48.0 Paroxysmal atrial fibrillation; I50.22 Chronic systolic (congestive) heart failure; Z12.5 Encounter for screening for malignant neoplasm of prostate
CPT/HCPCS: 36415; 80053; 80061; 84443; 85027; G0103

== ENCOUNTER → 2022-08-09 08:46 | Outpatient (CLI) | payer BC, SELFPAY ==
[2020-05-17 12:44] VITALS: BMI 35.2
--- NOTE | 2022-08-14 08:07 | PM.PFT.1 ---
Pulmonary Function Test Referral & Results Date Patient Seen: 08/09/22 Requesting provider: Vladislav Stephen Results: The spirometry demonstrates an FVC of 4.91 L which is 106% of predicted. The FEV1 was measured at 3.82 L which is 111% of predicted. The FEV1/FVC ratio was 78 which is 103% of predicted. Following the administration of bronchodilator there was an 88% improvement in FEF 25-75%. Lung volumes show an SVC of 4.82 L which is 103% of predicted. The diffusing capacity was measured at 29.19 which is 90% of predicted. The maximum voluntary ventilation was normal Interpretation: This study demonstrates normal pulmonary function
== END ==
PROVIDERS: PCP Internal Medicine; Referring Provider Internal Medicine Cardiovascular Disease; Visit Provider Internal Medicine Cardiovascular Disease
DX: Z79.899 Other long term (current) drug therapy (principal)
CPT/HCPCS: 94060; 94726; 94729

== ENCOUNTER → 2022-11-29 14:34 | Outpatient (CLI) | payer BC, SELFPAY ==
[2020-05-17 12:44] VITALS: BMI 35.2
[2022-11-29 15:16] LABS: Alanine Aminotransferase 54 IU/L (<50); Albumin 4.6 g/dL (3.5-5.0); Albumin Globulin Ratio 1.8 (1.0-2.8); Alkaline Phosphatase 65 U/L (38-126); Aspartate Aminotransferase 36 IU/L (17-59); BUN Creatinine Ratio 19.8 (6-22); Bilirubin Total 0.9 mg/dL (0.2-1.3); Blood Urea Nitrogen 26 mg/dL (9-20); Calcium 9.2 mg/dL (8.4-10.2); Carbon Dioxide 29 mmol/L (22-32); Chloride 102 mmol/L (98-107); Estimated Glomerular Filt Rate > 60 mL/min (>60); Globulin 2.6 g/dL (1.7-4.1); Glucose 109 mg/dL (80-110); HEMOLYSIS 18 (0-50); Magnesium 2.1 mg/dL (1.6-2.3); Potassium 5.3 mmol/L (3.4-5.1); Sodium 138 mmol/L (137-145); Total Protein 7.2 g/dL (6.3-8.2)
[2022-11-29 16:01] LABS: Thyroid Stimulating Hormone 2.38 uIU/mL (0.47-4.68)
== END ==
PROVIDERS: PCP Internal Medicine; Referring Provider Internal Medicine Cardiovascular Disease; Visit Provider Internal Medicine Cardiovascular Disease
DX: I48.0 Paroxysmal atrial fibrillation (principal); Z79.899 Other long term (current) drug therapy
CPT/HCPCS: 36415; 80053; 83735; 84443

== ENCOUNTER → 2022-12-10 14:15 | Outpatient (CLI) | payer BC, SELFPAY ==
[2020-05-17 12:44] VITALS: BMI 35.2
[2022-12-10 15:19] LABS: Blood Urea Nitrogen 23 mg/dL (9-20); Calcium 9.2 mg/dL (8.4-10.2); Carbon Dioxide 28 mmol/L (22-32); Chloride 102 mmol/L (98-107); Estimated Glomerular Filt Rate > 60 mL/min (>60); Glucose 81 mg/dL (80-110); HEMOLYSIS < 15 (0-50); Potassium 5.3 mmol/L (3.4-5.1); Sodium 138 mmol/L (137-145)
== END ==
PROVIDERS: PCP Internal Medicine; Referring Provider Internal Medicine Cardiovascular Disease; Visit Provider Internal Medicine Cardiovascular Disease
DX: I10 Essential (primary) hypertension (principal)
CPT/HCPCS: 36415; 80048

== ENCOUNTER → 2023-01-03 08:26 | Outpatient (CLI) | payer BC, SELFPAY ==
[2020-05-17 12:44] VITALS: BMI 35.2
--- NOTE | 2023-01-10 10:10 | PM.PFT.1 ---
Pulmonary Function Test Referral & Results Date Patient Seen: 01/03/23 Results: The spirometry demonstrates an FVC of 4.49 L which is 97% of predicted. The FEV1 was measured at 3.90 L which is 114% of predicted. The FEV1/FVC ratio was 87 which is 116% of predicted. Following the administration of bronchodilator there was no notable change to above normal numbers. Lung volumes show an SVC of 6.82 L which is 146% of predicted. The diffusing capacity was measured at 27.64 which is 85% of predicted. The maximum voluntary ventilation was normal Interpretation: This study demonstrates normal pulmonary function. There may be a very minimal reduction diffusing capacity suggesting the possibility of minimal disease at the capillary alveolar level Clinical correlation suggested
== END ==
PROVIDERS: PCP Internal Medicine; Referring Provider Internal Medicine Cardiovascular Disease; Visit Provider Internal Medicine Cardiovascular Disease
DX: Z79.899 Other long term (current) drug therapy (principal)
CPT/HCPCS: 94060; 94726; 94729

== ENCOUNTER → 2023-01-04 08:02 | Outpatient (CLI) | payer BC, SELFPAY ==
[2020-05-17 12:44] VITALS: BMI 35.2
--- NOTE | 2023-01-04 | DI.ECHO.S_ITS ---
[place] +---------+ [facility] +---------+ : : [address] : : : : [id number] : : : : Phone: [phone] : [phone] +---------+ Echocardiogram Report + + :Name: SRIDEVI BARKSDALE Study Date: 01/04/2023 Height: 70 in : :[facility] ReadingLocation: Weight: 240 lb : : Gender: Male BSA: 2.3 m2 : :: 1955 Age: 67 yrs BP: 112/68 mmHg: :Reason For Study: ATRIAL FIBRILLATION : :Ordering Physician: ANDREI, : :MARY Performed By: Elaine Houston : :Referring: MARY FORBES : + + Interpretation Summary left ventricular size is at the upper limits of normal. Left ventricular ejection fraction is estimated to be 30 +/- 5%. Patient is in A-fib with RVR. In May 18, 2020 during A-fib with RVR LVEF 35 to 40%. Then in March 19, 2022 with sinus rhythm, LVEF 50 to 55%. There is severe global hypokinesis of the left ventricle. The right ventricle is normal size. Right ventricular systolic function is at the lower limits of normal. There is mild to moderate mitral regurgitation. Previously mild MR. There is mild to moderate tricuspid regurgitation. The right ventricular systolic pressure is estimated to be at least 27 mmHg based on an estimated right atrial pressure of 3 mm Hg. Compared to the prior echo exam, there has been an increase in TR severity. The ascending aorta is mild-moderately enlarged. 4.2 cm in diameter. Previously 4.4 cm. Procedure: A two-dimensional transthoracic echocardiogram with color flow and Doppler was performed. The study quality was technically adequate. Comparison is made with the echocardiogram of 07/19/2021. The patient was in atrial fibrillation with heart rates between 85-131 bpm during the exam. Left Ventricle: Left ventricular size is at the upper limits of normal. There is no thrombus. Left ventricular ejection fraction is estimated to be 30 +/- 5%. There is severe global hypokinesis of the left ventricle. Diastolic function could not be accurately assessed due to atrial fibrillation. Right Ventricle: The right ventricle is normal size. Right ventricular systolic function is at the lower limits of normal. Atria: The left atrium is severely dilated. The left atrium has remained unchanged in size since the prior echo exam. The right atrium is moderately dilated. There is no Doppler evidence for an interatrial shunt. Mitral Valve: The mitral valve leaflets appear borderline thickened, but open well. There is mild mitral annular calcification. There is mild to moderate mitral regurgitation. Aortic Valve: The aortic valve is trileaflet. The aortic valve opens well. There is no aortic valve stenosis. No aortic regurgitation is present. Tricuspid Valve: The tricuspid valve is normal. There is mild to moderate tricuspid regurgitation. The right ventricular systolic pressure is estimated to be at least 27 mmHg based on an estimated right atrial pressure of 3 mm Hg. Compared to the prior echo exam, there has been an increase in TR severity. Pulmonic Valve: The pulmonic valve leaflets are thin and pliable; valve motion is normal. There is trace pulmonic regurgitation. Great Vessels: The aortic root is mildly dilated. The ascending aorta is mild-moderately enlarged. The IVC is of normal diameter and collapses greater than 50% with a sniff. This suggests a low right atrial pressure of 3 mm Hg. Pericardium/ Pleura There is no pericardial effusion. There is no pleural effusion. MMode/2D Measurements & Calculations LVIDd: 5.8 cm LVOT diam: 2.6 cm LVIDs: 4.8 cm Ao root diam: 4.2 cm FS: 16.7 % asc Aorta Diam: 4.2 cm EPSS: 1.5 cm IVSd: 0.81 cm LVPWd: 0.79 cm LV uriostegui. diameter/BSA (cm/m^2): 2.6 LV sys. diameter/BSA (cm/m^2): 2.1 LA A2 area: 28.7 cm2 RA long axis: 6.4 cm LA A4 area: 32.5 cm2 RA area: 28.0 cm2 LA length (vol): 6.9 cm RA vol: 104.8 ml LA vol: 115.4 ml RA : 46.5 ml/m2 LA vol index: 51.2 ml/m2 IVC diam: 0.94 cm RVD1 (basal): 4.0 cm RVD2 (mid): 3.1 cm TAPSE: 1.6 cm Doppler Measurements & Calculations Ao V2 max: 117.0 cm/sec LVOT Max Alex: 57.7 cm/sec Ao V2 mean: 83.0 cm/sec LV V1 max P.3 mmHg Ao max P.5 mmHg LV V1 VTI: 9.7 cm Ao mean P.1 mmHg MARIMAR(I,D): 2.7 cm2 Ao V2 VTI: 18.8 cm MARIMAR(V,D): 2.6 cm2 sev ratio: 0.52 MARIMAR indexed to BSA (cm^2/m^2): 1.2 MV E max alex: 80.0 cm/sec TR max alex: 242.7 cm/sec MV A max alex: 1.9 cm/sec TR max P.6 mmHg MV E/A: 42.8 PA V2 max: 70.9 cm/sec Med Peak E' Alex: 6.5 cm/sec PA V2 mean: 54.2 cm/sec E/E' med: 12.4 PA mean P.2 mmHg Lat Peak E' Alex: 10.3 cm/sec PA pr(Accel): 44.7 mmHg E/E' lat: 7.8 E/e' average: 10.1 MV dec time: 0.10 sec SV(LVOT): 51.0 ml Reading Physician:04:53 PM
== END ==
PROVIDERS: PCP Internal Medicine; Referring Provider Internal Medicine Cardiovascular Disease; Visit Provider Internal Medicine Cardiovascular Disease
DX: I08.1 Rheumatic disorders of both mitral and tricuspid valves (principal); I48.0 Paroxysmal atrial fibrillation; I77.89 Other specified disorders of arteries and arterioles
CPT/HCPCS: 93306

== ENCOUNTER → 2023-03-06 07:05 | Outpatient (CLI) | payer BC, SELFPAY ==
[2020-05-17 12:44] VITALS: BMI 35.2
[2023-03-06 09:40] LABS: Alanine Aminotransferase 51 IU/L (<50); Albumin 4.2 g/dL (3.5-5.0); Albumin Globulin Ratio 1.8 (1.0-2.8); Alkaline Phosphatase 56 U/L (38-126); Aspartate Aminotransferase 38 IU/L (17-59); BUN Creatinine Ratio 18.3 (6-22); Bilirubin Total 0.8 mg/dL (0.2-1.3); Blood Urea Nitrogen 21 mg/dL (9-20); Calcium 9.1 mg/dL (8.4-10.2); Carbon Dioxide 27 mmol/L (22-32); Chloride 101 mmol/L (98-107); Estimated Glomerular Filt Rate > 60 mL/min (>60); Globulin 2.3 g/dL (1.7-4.1); Glucose 137 mg/dL (80-110); HEMOLYSIS < 15 (0-50); Potassium 4.4 mmol/L (3.4-5.1); Sodium 138 mmol/L (137-145); Total Protein 6.5 g/dL (6.3-8.2)
== END ==
PROVIDERS: PCP Internal Medicine; Referring Provider Internal Medicine Cardiovascular Disease; Visit Provider Internal Medicine Cardiovascular Disease
DX: R00.0 Tachycardia, unspecified (principal); I43 Cardiomyopathy in diseases classified elsewhere; Z79.899 Other long term (current) drug therapy
CPT/HCPCS: 36415; 80053; 84443

== ENCOUNTER → 2023-03-28 10:30 | Outpatient (CLI) | payer BC, SELFPAY ==
[2020-05-17 12:44] VITALS: BMI 35.2
--- NOTE | 2023-03-28 10:31 | DI.ECHO.S_ITS ---
[place] +---------+ Hospital +---------+ : : [address] : : : : [id number] : : : : Phone: [phone] +---------+ Echocardiogram Report + + :Name: SRIDEVI BARKSDALE Study Date: 03/28/2023 Height: 70 in : :[facility] ReadingLocation: Weight: 240 lb : : Gender: Male BSA: 2.3 m2 : :: 1955 Age: 67 yrs BP: 122/83 mmHg: :Reason For Study: Tachycardia Induced Cardiomyopathy : :Ordering Physician: ANDREI, : :MARY Performed By: Lenore Park : :Referring: MARY FORBES : + + Interpretation Summary Rhythm mild sinus bradycardia. The left ventricle is normal in size. The ejection fraction is estimated to be 45-50%. Compared to the prior exam, the left ventricular function is improved. Previously, in the setting of A-fib with RVR, left ventricular ejection fraction is estimated to be 30 +/- 5%. The right ventricle is normal in size and function. No significant valvular pathology. Procedure: A two-dimensional transthoracic echocardiogram with color flow and Doppler was performed in limited views only. The study quality was technically adequate. Comparison is made with the echocardiogram of 01/04/2023. The patient was in sinus bradycardia with heart rates between 56- 59 bpm during the exam. Left Ventricle: The left ventricle is normal in size. Proximal septal thickening is noted. There is no echo evidence for significant left ventricular outflow tract obstruction. There is no thrombus. The ejection fraction is estimated to be 45-50%. Compared to the prior exam, the left ventricular function is improved. There is basal inferior wall hypokinesis. Right Ventricle: The right ventricle is normal in size and function. Mitral Valve: There is mild mitral annular calcification. There is no mitral valve stenosis. There is mild mitral regurgitation. Compared to the prior echo study, there has been a decrease in the severity of mitral regurgitation. Tricuspid Valve: The tricuspid valve is normal. There is no tricuspid stenosis. There is trace tricuspid regurgitation. Pulmonary artery pressures cannot be estimated because of the lack of a measurable TR jet velocity. Compared to the prior echo exam, there has been a decrease in TR severity. Great Vessels: The IVC is of normal diameter and collapses greater than 50% with a sniff. This suggests a low right atrial pressure of 3 mm Hg. Pericardium/ Pleura There is no pericardial effusion. There is no pleural effusion. MMode/2D Measurements & Calculations LVIDd: 5.1 cm LVLs ap4: 5.9 cm LVIDs: 3.7 cm FS: 27.5 % IVSd: 1.0 cm LVPWd: 1.3 cm LV uriostegui. diameter/BSA (cm/m^2): 2.3 LV sys. diameter/BSA (cm/m^2): 1.6 LVLd ap2: 7.2 cm LVLs ap2: 6.8 cm Reading Physician:12:18 PM
== END ==
PROVIDERS: PCP Internal Medicine; Referring Provider Internal Medicine Cardiovascular Disease; Visit Provider Internal Medicine Cardiovascular Disease
DX: I34.81 Nonrheumatic mitral (valve) annulus calcification (principal); R00.0 Tachycardia, unspecified; I34.0 Nonrheumatic mitral (valve) insufficiency; I43 Cardiomyopathy in diseases classified elsewhere; Z79.899 Other long term (current) drug therapy
CPT/HCPCS: 93307

== ENCOUNTER → 2023-08-12 13:13 | Outpatient (CLI) | payer BC, SELFPAY ==
[2020-05-17 12:44] VITALS: BMI 35.2
== END ==
LOC: RESP 13:14
PROVIDERS: PCP Internal Medicine; Referring Provider Internal Medicine Cardiovascular Disease; Visit Provider Internal Medicine Cardiovascular Disease
DX: Z79.899 Other long term (current) drug therapy (principal)
CPT/HCPCS: 94060; 94726; 94729

== ENCOUNTER → 2023-09-26 07:44 | Outpatient (CLI) | payer BC, SELFPAY ==
[2020-05-17 12:44] VITALS: BMI 35.2
[2023-09-26 08:32] LABS: Hematocrit 45.3 % (41-53); Hemoglobin 15.6 g/dL (13.5-17.5); Mean Corpuscular HGB Conc 34.4 % (30-36); Mean Corpuscular Hemoglobin 31.1 PG (26-34); Mean Corpuscular Volume 90.3 fL (80-100); Platelet Count 229 X10^3/uL (150-400); Red Blood Cell Count 5.02 X10^6/uL (4.5-5.9); Red Cell Distribution Width 13.3 % (11.6-14.8); White Blood Cell Count 8.8 X10^3/uL (4.5-11.0)
[2023-09-26 09:09] LABS: Alanine Aminotransferase 60 IU/L (<50); Albumin 4.3 g/dL (3.5-5.0); Albumin Globulin Ratio 1.7 (1.0-2.8); Alkaline Phosphatase 60 U/L (38-126); Aspartate Aminotransferase 41 IU/L (17-59); BUN Creatinine Ratio 21.1 (6-22); Bilirubin Total 0.9 mg/dL (0.2-1.3); Blood Urea Nitrogen 24 mg/dL (9-20); Calcium 9.4 mg/dL (8.4-10.2); Carbon Dioxide 32 mmol/L (22-32); Chloride 103 mmol/L (98-107); Cholesterol 162 mg/dL (140-199); Estimated Glomerular Filt Rate > 60 mL/min (>60); Globulin 2.5 g/dL (1.7-4.1); Glucose 134 mg/dL (80-110); HDL Cholesterol 45 mg/dL (40-60); LDL Cholesterol Calculated 92 mg/dL (<100); Potassium 4.3 mmol/L (3.4-5.1); Sodium 140 mmol/L (137-145); Total Protein 6.8 g/dL (6.3-8.2); Triglycerides 125 mg/dL (35-150)
[2023-09-26 09:17] LABS: HEMOLYSIS < 15 (0-50)
[2023-09-26 10:04] LABS: Prostate Specific Antigen Scrn 0.502 ng/mL (0.1-4.0)
== END ==
PROVIDERS: PCP Internal Medicine; Referring Provider Internal Medicine; Visit Provider Internal Medicine
DX: E78.2 Mixed hyperlipidemia (principal); I10 Essential (primary) hypertension; Z12.5 Encounter for screening for malignant neoplasm of prostate; I48.0 Paroxysmal atrial fibrillation
CPT/HCPCS: 36415; 80053; 80061; 85027; G0103

== ENCOUNTER 2023-12-04 07:47 | Day surgery (SDC) | payer BC, SELFPAY ==
[2020-05-17 12:44] VITALS: BMI 35.2
[2023-12-04 08:37] VITALS: BP 141/85; PULSE 67; RESP 18; TEMP 36.1; O2SAT 96
[2023-12-04] MEDS: LACTATED RINGERS 1,000 ML 42 ML IV (08:47)
--- NOTE | 2023-12-04 09:01 | P.OP.COLON_ITS ---
Operative Date/Time/Diagnoses Date of procedure: 12/04/23 Pre-op diagnosis: See indication and findings Procedure & Clinicians Study performed: Colonoscopy Indications: History of colon polyps Surgeon: Je Morales Procedure Notes Procedure in detail: After informed consent was obtained the patient was placed in left lateral decubitus position. The video colonoscope was introduced the rectum slowly advanced cecum. Preparation was good. On slow withdrawal mucosa was carefully examined. The scope was removed. The patient tolerated procedure well. Blood loss none Complications none Sedation mac Findings 1. Rare scattered left-sided diverticula 2. Otherwise negative colonoscopy to cecum Mr. Moore can restart his Xarelto tomorrow or today. He should have follow- up colonoscopy in 7 years
--- NOTE | 2023-12-04 09:01 | PM.PREOP ---
Pre-operative Note COVID-19 COVID-19 status: Negative Interval Note History & Physical reviewed/Exam performed by Physician: Yes Changes to H&P: No ASA Class (for procedural sedation): III
[2023-12-04 09:20] VITALS: BP 104/66; PULSE 54; RESP 12; TEMP 36.2; O2SAT 95
[2023-12-04 09:25] VITALS: BP 112/67; PULSE 57; RESP 14; O2SAT 92
[2023-12-04 09:30] VITALS: BP 111/72; PULSE 56; RESP 14; O2SAT 95
[2023-12-04 09:36] VITALS: BP 128/83; PULSE 51; RESP 18; TEMP 36.4; O2SAT 97
== END 2023-12-04 10:54 | disposition home or self-care (01) ==
PROVIDERS: PCP Internal Medicine; Referring Provider Internal Medicine Gastroenterology; Visit Provider Internal Medicine Gastroenterology
PROC: 0DJD8ZZ Inspection of Lower Intestinal Tract, Via Natural or Artificial Opening Endoscopic (ICD-10-PCS; CPT 45378; principal; 2023-12-04 09:30)
DX: Z12.11 Encounter for screening for malignant neoplasm of colon (principal); Z86.010 Personal history of colon polyps; K57.30 Diverticulosis of large intestine without perforation or abscess without bleeding
CPT/HCPCS: 45378; J2704

== ENCOUNTER → 2024-02-10 09:20 | Outpatient (CLI) | payer BC, SELFPAY ==
[2020-05-17 12:44] VITALS: BMI 35.2
== END ==
LOC: RESP 09:20
PROVIDERS: PCP Internal Medicine; Referring Provider Internal Medicine Cardiovascular Disease; Visit Provider Internal Medicine Cardiovascular Disease
DX: Z79.899 Other long term (current) drug therapy (principal)
CPT/HCPCS: 94010; 94729

== ENCOUNTER → 2024-03-25 09:17 | Outpatient (CLI) | payer BC, SELFPAY ==
[2020-05-17 12:44] VITALS: BMI 35.2
--- NOTE | 2024-03-25 09:18 | DI.ECHO.S_ITS ---
[place] +---------+ Hospital : : [address] : : [place] : : [id number] : : Phone: [phone] Echocardiogram Report + + :Name: SRIDEVI BARKSDALE Study Date: 03/25/2024 Height: 70 in : :[facility] ReadingLocation: Weight: 220 lb: : Gender: Male BSA: 2.2 m2 : :: 1955 Age: 68 yrs BP: 99/79 mmHg: :Reason For Study: CHRONIC SYSTOLIC HEART FAILURE : :Ordering Physician: ANDREI, : :MARY Performed By: Elaine Houston : :Referring: MARY FORBES : + + Interpretation Summary Regular tachycardia up to 133 bpm, suspect possibility of atrial flutter. Patient has history of A-fib and known case of tachycardia induced cardiomyopathy in the past. The left ventricle is normal in size and wall thickness. Left ventricular ejection fraction is estimated to be 30 +/- 5%. Previous LVEF 45 to 50%. That time he was in sinus. Prior to that in the setting of A-fib with RVR, left ventricular ejection fraction is estimated to be 30 +/- 5%. Overall moderate to severe global hypokinesis except basal segments which has relatively preserved contractions. No obvious apical ballooning. The right ventricle is grossly normal size. Right ventricular systolic function is mildly reduced. There is mild to moderate mitral regurgitation. Compared to the prior echo study, there has been an increase in the severity of mitral regurgitation. As patient was symptomatic with shortness of breath, sent to [place] [facility]. Procedure: Images were not obtained from all of the standard acoustic windows due to the limited scope of the study. The study quality was technically adequate. Comparison is made with the echocardiogram of 03/28/2023. The heart rate ranged between 129-133 bpm during the study. Regular tachycardia up to 133 bpm, suspect possibility of atrial flutter. Patient has history of A-fib and known case of tachycardia induced cardiomyopathy in the past. Left Ventricle: The left ventricle is normal in size and wall thickness. There is no thrombus. Left ventricular ejection fraction is estimated to be 30 +/- 5%. Overall moderate to severe global hypokinesis except basal segments which has relatively preserved contractions. No obvious apical ballooning. Right Ventricle: The right ventricle is grossly normal size. Right ventricular systolic function is mildly reduced. Mitral Valve: There is mild mitral annular calcification. There is mild to moderate mitral regurgitation. Compared to the prior echo study, there has been an increase in the severity of mitral regurgitation. Tricuspid Valve: The tricuspid valve is normal. There is mild tricuspid regurgitation. Pericardium/ Pleura There is no pericardial effusion. There is no pleural effusion. MMode/2D Measurements & Calculations LVIDd: 5.0 cm LVIDs: 4.1 cm FS: 17.1 % EPSS: 0.89 cm IVSd: 0.89 cm LVPWd: 0.97 cm LV uriostegui. diameter/BSA (cm/m^2): 2.3 LV sys. diameter/BSA (cm/m^2): 1.9 Reading Physician:05:34 PM
== END ==
PROVIDERS: PCP Internal Medicine; Referring Provider Internal Medicine Cardiovascular Disease; Visit Provider Internal Medicine Cardiovascular Disease
DX: I08.1 Rheumatic disorders of both mitral and tricuspid valves (principal); I50.22 Chronic systolic (congestive) heart failure
CPT/HCPCS: 93307

== ENCOUNTER 2024-03-25 10:18 | Emergency (ER) | payer BC, SELFPAY ==
[2020-05-17 12:44] VITALS: BMI 35.2
[2024-03-25] VITALS (23 sets, daily range): BP systolic 95–125; BP diastolic 64–90; PULSE 50–130; RESP 16–24; TEMP 36.2–36.7; O2SAT 96–100; BMI 31.5
--- NOTE | 2024-03-25 10:27 | DI.RAD.S_ITS ---
PROCEDURE: XR CHEST 1V INDICATIONS: chest pain TECHNIQUE: One view of the chest was acquired. COMPARISON: None. FINDINGS: Surgical changes and devices: None. Lungs and pleura: Lungs are clear. No pleural effusions or pneumothorax. Mediastinum: Mediastinal contours appear normal. Heart size is normal. Bones and chest wall: No suspicious bony lesions. Overlying soft tissues appear unremarkable. IMPRESSION: No acute cardiopulmonary abnormality is seen. Dictated by: Tez Rosenberg M.D. on 03/25/2024 at 11:40 Approved by: Tez Rosenberg M.D. on 03/25/2024 at 11:40
--- NOTE | 2024-03-25 10:27 | ED_ITS ---
HPI - General Adult General Chief complaint: Arrhythmia/Palpitations Stated complaint: Sent by MD, High Heart Rate, Poss AFIB Time Seen by Provider: 03/25/24 10:27 History of Present Illness HPI narrative: 68-year-old gentleman who was getting an echocardiogram in follow up for chronic systolic heart failure, was noted to have a rapid heart rhythm was sent to the emergency department. Additional details are not immediately available. Patient has a history of hypertension, hyperlipidemia, alcohol abuse follows with Dr. Stephen, is on amiodarone. Patient states that he has not had any alcohol for over a year is feeling quite well when inferior the routine echo today and found to be in atrial fibrillation. He does not have a sensation that his heart is beating rapidly or irregularly. States that he does take rivaroxaban and has been taking this regularly including today. Reports no chest pain, palpitation, orthopnea, dyspnea, nausea, vomiting, diarrhea Related Data Home Medications Medication Instructions Recorded Confirmed amiodarone 100 mg tablet 100 mg PO DAILY 05/08/22 12/04/23 atorvastatin 20 mg tablet 20 mg PO BEDTIME 05/08/22 12/04/23 rivaroxaban 20 mg tablet (Xarelto) 20 mg PO DAILY 05/08/22 12/04/23 spironolactone 25 mg tablet 12.5 mg PO DAILY 05/08/22 12/04/23 metoprolol succinate 25 mg 12.5 mg PO DAILY 09/24/23 12/04/23 tablet,extended release 24 hr Previous Rx's Medication Instructions Recorded furosemide 40 mg tablet 40 mg PO DAILY #30 tabs 05/19/20 lisinopril 5 mg tablet 5 mg PO DAILY #30 tabs 05/19/20 Allergies Allergy/AdvReac Type Severity Reaction Status Date / Time No Known Drug Allergies Allergy Verified 12/04/23 08:36 Review of Systems Review of Systems Narrative: Pertinent positive and negative findings as per HPI Patient History Medical History Right carpal tunnel syndrome Strain of right knee RONDON (nonalcoholic steatohepatitis) Chronic anticoagulation History of colonic polyps Mixed hyperlipidemia Essential hypertension Systolic CHF, chronic Paroxysmal atrial fibrillation (~2018) Obstructive sleep apnea, adult (~12/11/20) Obesity (BMI 30-39.9) Pneumonia Bronchitis Surgical History Anesthesia History of hand surgery (~2004) Family History Family/Other Obesity Father Heart disease Mother Loud snoring Family/Other Loud snoring Social History household members: friend(s) and none Smoking Status: Never smoker alcohol intake: never Smoking Status: Never smoker alcohol intake frequency: 3 or more drinks per day Substance Use Type: does not use Exam Initial Vital Signs Initial Vital Signs: Vital Signs Temperature 98.1 F 03/25/24 10:21 Pulse Rate 130 H 03/25/24 10:21 Respiratory Rate 20 03/25/24 10:21 Blood Pressure 119/88 03/25/24 10:21 Pulse Oximetry 97 03/25/24 10:21 Oxygen Delivery Method Room Air 03/25/24 10:21 General: Healthy appearing, in no acute distress. Able to give a complete and coherent history. Well-nourished well-developed HEENT: Moist mucous membranes, normal sclera with reactive pupils, Respiratory: Lungs are clear to auscultation, no wheezing no rales no rhonchi. Full and symmetrical air movement Cardiac: Tachycardic without murmurs Abdomen: Soft, nontender, good bowel tones, no flank pain Skin: Warm and dry, no rashes Neurologic: Grossly neurologically intact with no obvious asymmetries or abnormalities Extremities: No trauma, well perfused, no lower extremity edema Psych: Cooperative, appropriate insight and affect Procedures Cardioversion Consent Signed: Yes Indication: a flutter Stability: Stable Number of attempts (shocks): 1 Joules used: 200 Cardiac rhythm post-cardioversion: sinus Procedural Sedation Consent signed: Yes Time out performed: Yes Indication: cardioversion ASA Class: II Mallampati Airway Classification: Class II Preparation: athletic monitor applied, pulse oximeter, capnometry used, supplemental O2 applied, suction/airway equipment at bedside and IV secured IV Propofol dose (mg): 80 Intraservice time/total sedation time (min): 8 ED Sedation Level: Moderate (Concious) Patient Tolerated Procedure: Well Complications: none Course Orders Ordered: ED Orders 03/25/24 10:27 XR chest 1V Stat EKG-12 Lead Stat 03/25/24 10:39 Complete Blood Count AUTO DIFF Stat Comprehensive Metabolic Panel Stat Lipase Stat Magnesium Stat NT-proBNP (BNP-Adult 18+) Stat PTT Partial Thromboplastin Jt Stat Prothrombin Time INR Stat Troponin & CK Cardiac Panel Stat Discontinued Medications Aspirin (Aspirin 81 Mg Chew Tab) 324 mg PO NOW ONE Stop: 03/25/24 10:28 Last Admin: 03/25/24 10:46 Dose: 324 mg Documented By: ROSA M Sodium Chloride (Normal Saline 0.9%) 500 mls @ 1,000 mls/hr IV BOLUS ONE Stop: 03/25/24 14:40 Last Infusion: 03/25/24 14:10 Dose: Infused Documented By: SB(2) Admin: 03/25/24 13:40 Dose: 1,000 mls/hr Documented By: ROSA M(2) Propofol (Propofol 200 Mg/20 Ml Vial) 200 mg IV NOW ONE Stop: 03/25/24 12:31 Last Admin: 03/25/24 13:20 Dose: 80 mg Documented By: ROSA M(2) Vital Signs Vital signs: Vital Signs - 8 hr 03/25/24 10:21 03/25/24 10:30 03/25/24 11:00 Temperature 98.1 F Pulse Rate 130 H 129 H 129 H Respiratory Rate 20 24 23 Blood Pressure 119/88 107/83 95/66 Pulse Oximetry 97 96 96 Oxygen Delivery Method Room Air Room Air Oxygen Flow Rate 03/25/24 13:00 03/25/24 13:00 03/25/24 13:13 Temperature Pulse Rate 128 H Respiratory Rate Blood Pressure 120/90 125/85 Pulse Oximetry 96 Oxygen Delivery Method Oxygen Flow Rate 03/25/24 13:13 03/25/24 13:27 03/25/24 13:28 Temperature Pulse Rate 128 H 70 Respiratory Rate 16 Blood Pressure 111/69 111/69 Pulse Oximetry 97 98 Oxygen Delivery Method Oxygen Flow Rate 2 03/25/24 13:28 03/25/24 13:30 03/25/24 13:31 Temperature Pulse Rate 71 70 Respiratory Rate Blood Pressure 103/69 Pulse Oximetry 98 98 Oxygen Delivery Method Oxygen Flow Rate 03/25/24 13:31 03/25/24 13:32 03/25/24 13:35 Temperature 97.4 F L 97.6 F Pulse Rate 54 L 69 51 L Respiratory Rate 18 16 Blood Pressure 103/69 105/73 Pulse Oximetry 98 97 99 Oxygen Delivery Method Oxygen Flow Rate 0 0 03/25/24 13:35 03/25/24 13:35 03/25/24 13:40 Temperature Pulse Rate 68 67 Respiratory Rate 18 Blood Pressure 105/73 97/71 Pulse Oximetry 99 99 Oxygen Delivery Method Oxygen Flow Rate 0 03/25/24 13:40 03/25/24 13:40 03/25/24 13:41 Temperature Pulse Rate 66 69 Respiratory Rate 16 Blood Pressure 97/71 Pulse Oximetry 100 Oxygen Delivery Method Oxygen Flow Rate 03/25/24 13:45 03/25/24 13:45 03/25/24 13:45 Temperature 97.6 F Pulse Rate 50 L 50 L Respiratory Rate 18 Blood Pressure 98/67 98/67 Pulse Oximetry 99 99 Oxygen Delivery Method Oxygen Flow Rate 0 03/25/24 13:50 03/25/24 13:50 03/25/24 13:50 Temperature 97.1 F L Pulse Rate 68 68 Respiratory Rate 18 Blood Pressure 120/77 120/77 Pulse Oximetry 99 99 Oxygen Delivery Method Oxygen Flow Rate 0 03/25/24 13:55 03/25/24 13:55 03/25/24 13:55 Temperature Pulse Rate 67 52 L Respiratory Rate 18 Blood Pressure 110/71 110/71 Pulse Oximetry 100 100 Oxygen Delivery Method Oxygen Flow Rate 0 03/25/24 14:00 03/25/24 14:00 03/25/24 14:11 Temperature Pulse Rate 54 L Respiratory Rate Blood Pressure 99/64 115/70 Pulse Oximetry 100 Oxygen Delivery Method Oxygen Flow Rate 03/25/24 14:11 03/25/24 14:30 03/25/24 14:30 Temperature Pulse Rate 71 70 Respiratory Rate Blood Pressure 109/73 Pulse Oximetry 97 97 Oxygen Delivery Method Oxygen Flow Rate 03/25/24 15:32 03/25/24 15:33 03/25/24 15:33 Temperature Pulse Rate 68 67 Respiratory Rate 16 Blood Pressure 101/69 Pulse Oximetry 96 98 Oxygen Delivery Method Room Air Oxygen Flow Rate Medical Decision Making Lab Data 03/25/24 10:39 03/25/24 10:39 Labs: Lab Results 03/25/24 Range/Units 10:39 WBC 8.8 (4.5-11.0) X10^3/uL RBC 4.69 (4.5-5.9) X10^6/uL Hgb 14.2 (13.5-17.5) g/dL Hct 41.6 (41-53) % MCV 88.5 (80-100) fL MCH 30.3 (26-34) PG MCHC 34.3 (30-36) % RDW 13.4 (11.6-14.8) % Plt Count 196 (150-400) X10^3/uL Neut % (Auto) 73.1 (50-75) % Lymph % (Auto) 12.3 L (25-40) % [place] % (Auto) 11.9 (3-14) % Eos % (Auto) 2.1 (2-4) % Baso % (Auto) 0.6 (0-2) % Neut # (Auto) 6400 (3197-5321) /uL Lymph # (Auto) 1100 (8351-3177) /uL [place] # (Auto) 1000 H (0-900) /uL Eos # (Auto) 200 (0-450) /uL Baso # (Auto) 100 (0-100) /uL PT 24.3 H (9.4-12.5) SECONDS INR 2.1 H (0.9-1.3) APTT 41 H (25.1-36.5) SECONDS Sodium 133 L (137-145) mmol/L Potassium 4.8 (3.4-5.1) mmol/L Chloride 102 (98-107) mmol/L Carbon Dioxide 25 (22-32) mmol/L BUN 23 H (9-20) mg/dL Creatinine 1.05 (0.66-1.25) mg/dL Estimated GFR > 60 (>60) mL/min BUN/Creatinine Ratio 21.9 (6-22) Glucose 97 (80-110) mg/dL Calcium 9.2 (8.4-10.2) mg/dL Magnesium 1.8 (1.6-2.3) mg/dL Total Bilirubin 1.1 (0.2-1.3) mg/dL AST 39 (17-59) IU/L ALT 42 (<50) IU/L Alkaline Phosphatase 59 (38-126) U/L Total Creatine Kinase 469 H (55-170) U/L Troponin I < 0.012 (0.01-0.034) ng/mL NT-Pro-B Natriuret Pep 638 H (<125) pg/mL Total Protein 6.7 (6.3-8.2) g/dL Albumin 4.1 (3.5-5.0) g/dL Globulin 2.6 (1.7-4.1) g/dL Albumin/Globulin Ratio 1.6 (1.0-2.8) Lipase 107 (23-300) U/L MDM Narrative Medical decision making narrative: CC: Incidentally noted atrial fibrillation while having routine echocardiogram Complicating co-morbidities: History of prior atrial fibrillation, currently on amiodarone and rivaroxaban, metoprolol succinate 25 mg takes 12.5 mg daily Data collected from: patient Social determinants of health that may influence the patients condition: No alcohol use for over a year Medical records reviewed: Cardiology note from December 22 is reviewed Differential considered: Atrial fibrillation paroxysmal, chronic, symptomatic, asymptomatic Exam documented above, pertinent findings include: Exam is entirely benign Lab Test results independently reviewed as above. Pertinent findings: CBC is unremarkable Chemistries Are unremarkable Creatinine slightly elevated at 469 ProBNP minimally elevated at 638 Independently reviewed EKG: Rapid regular rhythm at 132. ? Wide complex question flutter with 2-1 block slow due to his metoprolol with an intraventricular conduction delay. Possible SVT Imaging studies independently reviewed: Chest x-ray is unremarkable Consultations:Dr Rodriguez, cardiology. She reviews EKG as well. Agrees with possible flutter versus SVT and feels that cardioversion is going to be appropriate. Treatments: Sedation, cardioversion Re-evaluations: Patient tolerated well, anticipating discharge Discussion: 68-year-old gentleman who presented for outpatient routine echocardiogram and was found to be in a rapid rhythm likely two-to-one flutter in the 120-130 range. Completely asymptomatic with the initial workup unremarkable. With shared decision-making we opted to move forward with cardioversion. He was successfully cardioverted with a single shock, 200 joules, synchronized. He has tolerated the sedation well. We will continue all medications including his amiodarone and rivaroxaban. 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 He is safe for discharge home Discharge Plan Departure Patient Disposition: Home Clinical Impression: Atrial flutter Qualifiers: Atrial flutter type: atypical Qualified Code(s): I48.4 - Atypical atrial flutter Instructions: DI for Atrial Flutter Activity Restrictions/Additional Instructions: Thank you for coming in today Your heart was going too fast. Your blood work was all quite reassuring. Because you have been taking your rivaroxaban regularly, cardioversion was undertaken in the emergency department. You convert back to sinus rhythm with minimal difficulty. Please make sure you continue all of your medications including the amiodarone metoprolol and rivaroxaban. Please do keep her scheduled follow up with your field radio operator If you find that you are getting worse or develop any new symptoms, please feel free to return to the emergency department for further evaluation. Prescriptions: No Action metoprolol succinate 25 mg tablet extended release 24 hr 12.5 mg PO DAILY furosemide 40 mg Tablet 40 mg PO DAILY Qty: 30 0RF lisinopril 5 mg Tablet 5 mg PO DAILY Qty: 30 0RF amiodarone 100 mg tablet 100 mg PO DAILY atorvastatin 20 mg tablet 20 mg PO BEDTIME Xarelto 20 mg tablet 20 mg PO DAILY Rx Instructions: must administer with evening meal spironolactone 25 mg tablet 12.5 mg PO DAILY Referrals: Rey Garber MD [Primary Care Provider] - Stand Alone Forms: Patient Portal/API
--- NOTE | 2024-03-25 10:27 | EKG_ITS ---
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
[2024-03-25] MEDS: ASPIRIN 81 MG CHEW TAB 324 MG PO (10:46)
[2024-03-25 10:52] LABS: Add Manual Diff / Slide Review NO; Basophils Absolute Auto 100 /uL (0-100); Basophils Percent Auto 0.6 % (0-2); Eosinophils Absolute Auto 200 /uL (0-450); Eosinophils Percent Auto 2.1 % (2-4); Hematocrit 41.6 % (41-53); Hemoglobin 14.2 g/dL (13.5-17.5); Lymphocytes Absolute Auto 1100 /uL (1100-4500); Lymphocytes Percent Auto 12.3 % (25-40); Mean Corpuscular HGB Conc 34.3 % (30-36); Mean Corpuscular Hemoglobin 30.3 PG (26-34); Mean Corpuscular Volume 88.5 fL (80-100); Monocytes Absolute Auto 1000 /uL (0-900); Monocytes Percent Auto 11.9 % (3-14); Neutrophils Absolute Auto 6400 /uL (1500-7000); Neutrophils Percent Auto 73.1 % (50-75); Platelet Count 196 X10^3/uL (150-400); Red Blood Cell Count 4.69 X10^6/uL (4.5-5.9); Red Cell Distribution Width 13.4 % (11.6-14.8); White Blood Cell Count 8.8 X10^3/uL (4.5-11.0)
[2024-03-25 11:06] LABS: Alanine Aminotransferase 42 IU/L (<50); Albumin 4.1 g/dL (3.5-5.0); Albumin Globulin Ratio 1.6 (1.0-2.8); Alkaline Phosphatase 59 U/L (38-126); Aspartate Aminotransferase 39 IU/L (17-59); BUN Creatinine Ratio 21.9 (6-22); Bilirubin Total 1.1 mg/dL (0.2-1.3); Blood Urea Nitrogen 23 mg/dL (9-20); Calcium 9.2 mg/dL (8.4-10.2); Carbon Dioxide 25 mmol/L (22-32); Chloride 102 mmol/L (98-107); Creatine Kinase 469 U/L (55-170); Estimated Glomerular Filt Rate > 60 mL/min (>60); Globulin 2.6 g/dL (1.7-4.1); Glucose 97 mg/dL (80-110); HEMOLYSIS 18 (0-50); Lipase 107 U/L (23-300); Magnesium 1.8 mg/dL (1.6-2.3); Potassium 4.8 mmol/L (3.4-5.1); Sodium 133 mmol/L (137-145); Total Protein 6.7 g/dL (6.3-8.2)
[2024-03-25 11:16] LABS: NT-proBNP (BNP-Adult 18+) 638 pg/mL (<125); Troponin I < 0.012 ng/mL (0.01-0.034)
[2024-03-25 11:27] LABS: INR 2.1 (0.9-1.3); Prothrombin Time 24.3 SECONDS (9.4-12.5)
[2024-03-25 11:30] LABS: PTT Partial Thromboplastin Tim 41 SECONDS (25.1-36.5)
[2024-03-25] MEDS: propofoL 200 MG/20 ML VIAL IV (13:20)
--- NOTE | 2024-03-25 13:37 | EKG_ITS ---
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
[2024-03-25] MEDS: SODIUM CHLORIDE 0.9% 500 ML 1000 ML IV (13:40)
== END 2024-03-25 16:08 | disposition home or self-care (01) ==
PROVIDERS: Emergency Provider Emergency Medicine; PCP Internal Medicine
DX: I48.4 Atypical atrial flutter (principal); Z79.01 Long term (current) use of anticoagulants; E78.5 Hyperlipidemia, unspecified; I08.1 Rheumatic disorders of both mitral and tricuspid valves; I50.22 Chronic systolic (congestive) heart failure; I11.0 Hypertensive heart disease with heart failure
CPT/HCPCS: 36415; 71045; 80053; 82550; 83690; 83735; 83880; 84484; 85025; 85610; 85730; 92960; 93005; 93010; 93307; 99285; J2704

== ENCOUNTER → 2024-05-06 11:15 | Outpatient (CLI) | payer BC, SELFPAY ==
[2020-05-17 12:44] VITALS: BMI 35.2
[2024-05-06 13:10] LABS: BUN Creatinine Ratio 18.9 (6-22); Blood Urea Nitrogen 21 mg/dL (9-20); Calcium 9.6 mg/dL (8.4-10.2); Carbon Dioxide 27 mmol/L (22-32); Chloride 101 mmol/L (98-107); Estimated Glomerular Filt Rate > 60 mL/min (>60); Glucose 94 mg/dL (80-110); HEMOLYSIS < 15 (0-50); Potassium 4.5 mmol/L (3.4-5.1); Sodium 138 mmol/L (137-145)
[2024-05-06 13:38] LABS: Thyroid Stimulating Hormone 1.59 uIU/mL (0.47-4.68)
== END ==
PROVIDERS: PCP Internal Medicine; Referring Provider Internal Medicine Cardiovascular Disease; Visit Provider Internal Medicine Cardiovascular Disease
DX: I50.22 Chronic systolic (congestive) heart failure (principal)
CPT/HCPCS: 36415; 80048; 84443

== ENCOUNTER → 2024-07-14 08:05 | Outpatient (CLI) | payer BC, SELFPAY ==
[2020-05-17 12:44] VITALS: BMI 35.2
--- NOTE | 2024-07-14 08:08 | DI.ECHO.S_ITS ---
[facility] : : [id number] : : [place] : : [id number] : : Phone: [phone] Echocardiogram Report + + :Name: SRIDEVI BARKSDALE Study Date: 07/14/2024 Height: 70 in : :[facility] ReadingLocation: Weight: 215 lb : : Gender: Male BSA: 2.2 m2 : :: 1955 Age: 68 yrs BP: 113/77 mmHg: :Reason For Study: CHRONIC SYSTOLIC HEART FAILURE : :Ordering Physician: ANDREI, : :MARY Performed By: Elaine Houston : :Referring: MARY FORBES : + + Interpretation Summary The patient was in sinus bradycardia with heart rates between 48-56 bpm during the exam. The left ventricle is normal in size and wall thickness. The ejection fraction is estimated to be 50-55%. Previously in the setting of A-fib with RVR, LVEF30 +/- 5%. Compared to the prior exam, the left ventricular function is improved. The right ventricle is normal in size and function. There is mild tricuspid regurgitation. The right ventricular systolic pressure is estimated to be at least 24 mmHg based on an estimated right atrial pressure of 3 mm Hg. Procedure: The study quality was technically limited. The study quality was technically adequate. Comparison is made with the echocardiogram of 03/25/2024. The patient was in sinus bradycardia with heart rates between 48- 56 bpm during the exam. Left Ventricle: The left ventricle is normal in size and wall thickness. There is no thrombus. The ejection fraction is estimated to be 50-55%. Compared to the prior exam, the left ventricular function is improved. There are no focal wall motion abnormalities. Right Ventricle: The right ventricle is normal in size and function. Aortic Valve: The aortic valve is trileaflet. The aortic valve opens well. Tricuspid Valve: The tricuspid valve leaflets are thin and pliable. There is mild tricuspid regurgitation. The right ventricular systolic pressure is estimated to be at least 24 mmHg based on an estimated right atrial pressure of 3 mm Hg. Great Vessels: The IVC is of normal diameter and collapses greater than 50% with a sniff. This suggests a low right atrial pressure of 3 mm Hg. Pericardium/ Pleura There is no pericardial effusion. There is no pleural effusion. MMode/2D Measurements & Calculations LVIDd: 5.7 cm LVOT diam: 2.5 cm LVIDs: 4.0 cm Ao root diam: 4.5 cm FS: 30.1 % EPSS: 0.83 cm IVSd: 0.96 cm LVPWd: 0.93 cm LV uriostegui. diameter/BSA (cm/m^2): 2.7 LV sys. diameter/BSA (cm/m^2): 1.9 IVC diam: 1.2 cm Doppler Measurements & Calculations TR max remigio: 228.3 cm/sec TR max P.8 mmHg Reading Physician:05:10 PM
== END ==
LOC: ECHO 08:07
PROVIDERS: PCP Internal Medicine; Referring Provider Internal Medicine Cardiovascular Disease; Visit Provider Internal Medicine Cardiovascular Disease
DX: I07.1 Rheumatic tricuspid insufficiency (principal); I50.22 Chronic systolic (congestive) heart failure
CPT/HCPCS: 93307

== ENCOUNTER → 2024-12-24 07:03 | Outpatient (CLI) | payer BC, SELFPAY ==
[2020-05-17 12:44] VITALS: BMI 35.2
[2024-12-24 07:53] LABS: Hematocrit 45.2 % (41-53); Hemoglobin 15.5 g/dL (13.5-17.5); Mean Corpuscular HGB Conc 34.3 % (30-36); Mean Corpuscular Hemoglobin 30.7 PG (26-34); Mean Corpuscular Volume 89.5 fL (80-100); Platelet Count 194 X10^3/uL (150-400); Red Blood Cell Count 5.05 X10^6/uL (4.5-5.9)
[2024-12-24 08:11] LABS: Hemoglobin A1C% w Est Avg Glu 5.2 % (4.0-6.0)
[2024-12-24 08:12] LABS: HEMOLYSIS < 15 (0-50); Potassium 4.9 mmol/L (3.4-5.1)
[2024-12-24 08:14] LABS: Aspartate Aminotransferase 32 IU/L (17-59); Blood Urea Nitrogen 19 mg/dL (9-20); Carbon Dioxide 25 mmol/L (22-32); Chloride 103 mmol/L (98-107); Cholesterol 174 mg/dL (140-199); Estimated Glomerular Filt Rate > 60 mL/min (>60); Glucose 95 mg/dL (70-99); HDL Cholesterol 47 mg/dL (40-60); LDL Cholesterol Calculated 110 mg/dL (<100); Sodium 137 mmol/L (137-145); Triglycerides 84 mg/dL (35-150)
[2024-12-24 08:45] LABS: Prostate Specific Antigen 0.509 ng/mL (0.10-4.00)
[2024-12-24 08:55] LABS: TSH w/ Reflex to FT4 3.13 uIU/mL (0.47-4.68)
[2024-12-24 09:04] LABS: Vitamin B12 Reflex MMA if <400 358 pg/mL (239-931)
== END ==
PROVIDERS: PCP Internal Medicine; Referring Provider Internal Medicine; Visit Provider Internal Medicine
DX: R77.9 Abnormality of plasma protein, unspecified (principal); R73.01 Impaired fasting glucose; E78.2 Mixed hyperlipidemia; I48.0 Paroxysmal atrial fibrillation; N40.1 Benign prostatic hyperplasia with lower urinary tract symptoms; N13.8 Other obstructive and reflux uropathy
CPT/HCPCS: 36415; 80048; 80061; 82607; 83036; 83921; 84153; 84155; 84165; 84443; 84450; 85027

== ENCOUNTER 2025-01-26 09:39 | Emergency (ER) | payer BC, SELFPAY ==
[2020-05-17 12:44] VITALS: BMI 35.2
[2025-01-26] VITALS (28 sets, daily range): BP systolic 101–134; BP diastolic 66–100; PULSE 48–124; RESP 9–25; TEMP 36.9; O2SAT 90–99; BMI 31.4
--- NOTE | 2025-01-26 09:49 | EKG_ITS ---
[address] [address] Test Date: 2025-01-26 Pat Name: Julio Moore Department: Room: Gender: Male Social Work Instructor: NESSA : 1955 Requested By: Order Number: [id number] Reading MD: Alexis Chawla Measurements Intervals [place] Rate: 123 P: WI: 184 QRS: -52 QRSD: 104 T: 34 QT: 330 QTc: 472 Interpretive Statements Sinus tachycardia Left anterior fascicular block Electronically Signed On 02-05-2025 13:33:51 PDT by Alexis Chwala
--- NOTE | 2025-01-26 09:49 | DI.RAD.S_ITS ---
PROCEDURE: XR CHEST 1V INDICATIONS: Chest Pain TECHNIQUE: One view of the chest was acquired. COMPARISON: [facility], CR, XR CHEST 1V, 03/25/2024, 10:34. [facility], CR, XR CHEST 1V, 05/17/2020, 7:46. FINDINGS AND IMPRESSION: No dense airspace disease or pleural effusion on this single view study. Heart size is at the upper limit of normal. Tortuous aorta. Aortic calcifications. Degenerative osseous changes. Dictated by: Lamonte Healy M.D. on 01/26/2025 at 10:06 Approved by: Lamonte Healy M.D. on 01/26/2025 at 10:07
--- NOTE | 2025-01-26 09:58 | PC.NURSE ---
Pt awake and alert. Ambulatory to room. Denies chest pain.
[2025-01-26 10:06] LABS: INR 1.7 (0.9-1.3); Prothrombin Time 18.8 SECONDS (9.4-12.5)
[2025-01-26 10:09] LABS: PTT Partial Thromboplastin Tim 37 SECONDS (25.1-36.5)
[2025-01-26 10:11] LABS: Add Manual Diff / Slide Review NO; Hematocrit 49.8 % (41-53); Hemoglobin 16.9 g/dL (13.5-17.5); Lymphocytes Absolute Auto 1000 /uL (1100-4500); Mean Corpuscular HGB Conc 33.9 % (30-36); Mean Corpuscular Hemoglobin 30.5 PG (26-34); Mean Corpuscular Volume 89.8 fL (80-100); Platelet Count 227 X10^3/uL (150-400)
[2025-01-26] MEDS: METOPROLOL TARTRATE 5 MG/5 ML INJ IV ×2 (10:12→10:28)
[2025-01-26 10:14] LABS: Alanine Aminotransferase 55 IU/L (<50); Albumin 4.8 g/dL (3.5-5.0); Albumin Globulin Ratio 1.7 (1.0-2.8); Alkaline Phosphatase 61 U/L (38-126); Blood Urea Nitrogen 21 mg/dL (9-20); Calcium 9.5 mg/dL (8.4-10.2); Carbon Dioxide 26 mmol/L (22-32); Chloride 106 mmol/L (98-107); Creatine Kinase 366 U/L (55-170); Estimated Glomerular Filt Rate > 60 mL/min (>60); Globulin 2.9 g/dL (1.7-4.1); Glucose 109 mg/dL (70-99); HEMOLYSIS 16 (0-50); Lipase 80 U/L (23-300); Magnesium 2.1 mg/dL (1.6-2.3); Potassium 4.9 mmol/L (3.4-5.1); Sodium 139 mmol/L (137-145); Total Protein 7.7 g/dL (6.3-8.2)
[2025-01-26 10:23] LABS: NT-proBNP (BNP-Adult 18+) 611 pg/mL (<125); Troponin I < 0.012 ng/mL (0.01-0.034)
--- NOTE | 2025-01-26 10:29 | PC.NURSE ---
No change with Metoprolol administration. Preparing for cardioversion.
[2025-01-26] MEDS: MIDAZOLAM 2 MG/2 ML VIAL 4 MG IV (10:48)
[2025-01-26] MEDS: fentaNYL 100 MCG/2 ML INJ IV (10:48)
--- NOTE | 2025-01-26 11:00 | EKG_ITS ---
[place] [id number] [place] [id number] Test Date: 2025-01-26 Pat Name: Julio Moore Department: Room: Gender: Male Non Profit Director: ALICIA : 1955 Requested By: Order Number: [id number] Reading MD: Alexis Chawla Measurements Intervals [place] Rate: 57 P: 45 NC: 140 QRS: -40 QRSD: 92 T: -34 QT: 442 QTc: 430 Interpretive Statements Sinus bradycardia Left axis deviation Nonspecific ST and T wave abnormality Electronically Signed On 02-05-2025 13:34:01 PDT by Alexis Chawla
--- NOTE | 2025-01-26 11:10 | PC.NURSE ---
Pt awake and alert. Breathing on his own. Appears in NAD. Sinus Daniel 56 HR
--- NOTE | 2025-01-26 12:09 | PC.NURSE ---
pt had a sandwich and some juice . tolerated well.
--- NOTE | 2025-01-26 21:41 | ED.ARRPALP ---
HPI - Arrhythmia/Palpitations General Chief Complaint: Arrhythmia/Palpitations Stated Complaint: Heart arrhythmia sent by dr Pinto Seen by Provider: 01/26/25 10:02 Source: patient Mode of arrival: Family Vehicle History of Present Illness HPI narrative: This 69 yo male was referred into the ER for the purpose of getting a cardioversion to convert what was thought to be a-flutter. The patient has been on anticoagulation and has been on po metoprolol . He just had an ablation for a-fib over a week ago. it was nto felt that any more metoprolol would make a difference. 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 Flores who had been consulted by his primary provider , Dr. Garber. The patient had had few symptoms and his rate was 124 on EKG but there were flutter waves. Treatments prior to arrival: vagal maneuvers Related Data Home Medications ?Medication ?Instructions ?Recorded ?Confirmed rivaroxaban 20 mg tablet (Xarelto) 20 mg PO DAILY 05/08/22 01/26/25 spironolactone 25 mg tablet 12.5 mg PO DAILY 05/08/22 01/26/25 metoprolol succinate 25 mg 12.5 mg PO DAILY 09/24/23 01/26/25 tablet,extended release 24 hr empagliflozin 10 mg tablet 10 mg PO DAILY 12/23/24 01/26/25 (Jardiance) Previous Rx's ?Medication ?Instructions ?Recorded lisinopril 5 mg tablet 5 mg PO DAILY #30 tabs 05/19/20 Allergies Allergy/AdvReac Type Severity Reaction Status Date / Time No Known Drug Allergies Allergy Verified 01/26/25 09:50 Review of Systems Review of Systems ROS Unobtainable: All systems reviewed & are unremarkable except as noted in HPI and below Constitutional Constitutional: Reports system reviewed and no additional complaints, except as documented Eyes Eyes: Reports system reviewed and no additional complaints, except as documented ENT Ears, Nose, Mouth, and Throat: Reports system reviewed and no additional complaints, except as documented Cardiovascular Comments: Slight sense of palpitations , no daya chest pain or dizzinesss, or near-synvopal status. Respiratory Respiratory: Reports system reviewed and no additional complaints, except as documented Gastrointestinal Gastrointestinal: Reports system reviewed and no additional complaints, except as documented Genitourinary Genitourinary: Reports system reviewed and no additional complaints, except as documented Musculoskeletal Musculoskeletal: Reports system reviewed and no additional complaints, except as documented Neurologic Neurologic: Reports system reviewed and no additional complaints, except as documented Patient History Medical History (Updated 01/26/25 @ 12:03 by Kiersten Moody MD) Polyneuropathy, unspecified Atrial flutter Right carpal tunnel syndrome RONDON (nonalcoholic steatohepatitis) Chronic anticoagulation History of colonic polyps Mixed hyperlipidemia Essential hypertension Systolic CHF, chronic Paroxysmal atrial fibrillation (~2018) Obstructive sleep apnea, adult (~12/11/20) Obesity (BMI 30-39.9) Pneumonia Surgical History Anesthesia History of hand surgery (~2004) Family History Family/Other Obesity Father Heart disease Mother Loud snoring Family/Other Loud snoring Social History household members: friend(s) and none alcohol intake: never Smoking Status: Never smoker alcohol intake frequency: 3 or more drinks per day Exam Initial Vital Signs Initial Vital Signs: Vital Signs Temperature 98.5 F 01/26/25 09:50 Pulse Rate 122 H 01/26/25 09:50 Respiratory Rate 16 01/26/25 09:50 Blood Pressure 133/94 H 01/26/25 09:50 Pulse Oximetry 98 01/26/25 09:50 Oxygen Delivery Method Room Air 01/26/25 09:50 Const General: cooperative Orientation: Orientation (times 3) HENMT Head: normal to inspection Eyes Pupils: PERRL Neck Neck: normal visual inspection and full ROM Chest Chest: normal inspection of the chest Resp Effort & Inspection: normal respiratory effort Auscultation: clear to auscultation bilaterally Cardio Rate: regular rate Rhythm: regular rhythm Other: occasional palpitation. GI Inspection: normal to inspection Auscultation: normal bowel sounds Other: Nontender, adequate BS Back/Spine/Pelvis Back: normal to inspection Sacroiliac Joints: nontender Neuro General: patient alert and patient awake Procedures Cardioversion Time of Cardioversion: 09:45 Consent Signed: Yes Indication: a-flutter with 2;1 conduction. Stability: Stable Number of attempts (shocks): 1 Joules used: 50 Cardiac rhythm post-cardioversion: sinus bradycardia rate 57 Procedural Sedation Time of procedure: 09:30 Consent signed: Yes Time out performed: Yes (name confirmed ) Indication: cardioversion ASA Class: II Mallampati Airway Classification: Class II Time of Last PO Intake: 01:00 Preparation: personnel monitor applied, pulse oximeter, supplemental O2 applied, suction/airway equipment at bedside and IV secured Fentanyl: IV Fentanyl dose (mcg): 105 Midazolam: IV Midazolam dose (mg): 4 ED Sedation Level: Moderate (Concious) Patient Tolerated Procedure: Well Complications: hypoxia Additional Comments: sternal rub, had take deep breath. Cardioversion was successful. Course Course Course Narrative: patient initially given 2 separate doses of IV metoprolol with little to no effect.Decided would need cardioversion. With respiratory present, patient underwent sedation and initially would not go to sleep, more versed was given for total of 4 mg and then more fentanyl was going to be given but oatient started ti get hyooxic with O2 high 80's and given sternal rub and only 5 more mcg of fentanyl given after versed given . Cardioversion was successful. patient was discharged when fully alert.breathing on own. O2 sat over 95% Orders Ordered: Discontinued Medications Aspirin (Aspirin 81 Mg Chew Tab) 324 mg PO NOW ONE Stop: 01/26/25 09:50 Last Admin: 01/26/25 10:12 Dose: Not Given Documented By: JORGE LUIS Fentanyl (Fentanyl 100 Mcg/2 Ml Inj) 100 mcg 1 mcg/kg (100 mcg) IV NOW ONE Stop: 01/26/25 10:31 Last Admin: 01/26/25 10:48 Dose: 100 mcg Documented By: Metoprolol Tartrate (Metoprolol Tartrate 5 Mg/5 Ml Inj) 5 mg IV NOW ONE Stop: 01/26/25 10:07 Last Admin: 01/26/25 10:12 Dose: 5 mg Documented By: Metoprolol Tartrate (Metoprolol Tartrate 5 Mg/5 Ml Inj) 5 mg IV NOW ONE Stop: 01/26/25 10:20 Last Admin: 01/26/25 10:28 Dose: 5 mg Documented By: Midazolam HCl (Midazolam 2 Mg/2 Ml Vial) 4 mg IV NOW ONE Stop: 01/26/25 10:30 Last Admin: 01/26/25 10:48 Dose: 4 mg Documented By: MDM - Arrhythmia/Palpitations Differential Diagnosis Differential diagnosis: Likely palpitations, artial fibrillation and artial flutter Condition is:: Improved Chronic Condition is having:: Moderate exacerbation Condition is at treatment goal?: Yes Medical Records Attestation: I reviewed the patient's medical records. Lab Data 01/26/25 09:52 01/26/25 09:52 Labs: Lab Results 01/26/25 Range/Units 09:52 WBC 9.9 (4.5-11.0) X10^3/uL RBC 5.55 (4.5-5.9) X10^6/uL Hgb 16.9 (13.5-17.5) g/dL Hct 49.8 (41-53) % MCV 89.8 (80-100) fL MCH 30.5 (26-34) PG MCHC 33.9 (30-36) % RDW 13.4 (11.6-14.8) % Plt Count 227 (150-400) X10^3/uL Neut % (Auto) 77.0 H (50-75) % Lymph % (Auto) 10.2 L (25-40) % Campbell % (Auto) 10.8 (3-14) % Eos % (Auto) 1.3 L (2-4) % Baso % (Auto) 0.7 (0-2) % Neut # (Auto) 7600 H (1797-4739) /uL Lymph # (Auto) 1000 L (1317-7946) /uL Campbell # (Auto) 1100 H (0-900) /uL Eos # (Auto) 100 (0-450) /uL Baso # (Auto) 100 (0-100) /uL PT 18.8 H (9.4-12.5) SECONDS INR 1.7 H (0.9-1.3) APTT 37 H (25.1-36.5) SECONDS Sodium 139 (137-145) mmol/L Potassium 4.9 (3.4-5.1) mmol/L Chloride 106 (98-107) mmol/L Carbon Dioxide 26 (22-32) mmol/L BUN 21 H (9-20) mg/dL Creatinine 0.98 (0.66-1.25) mg/dL Estimated GFR > 60 (>60) mL/min BUN/Creatinine Ratio 21.4 (6-22) Glucose 109 H (70-99) mg/dL Calcium 9.5 (8.4-10.2) mg/dL Magnesium 2.1 (1.6-2.3) mg/dL Total Bilirubin 0.8 (0.2-1.3) mg/dL AST 53 (17-59) IU/L ALT 55 H (<50) IU/L Alkaline Phosphatase 61 (38-126) U/L Total Creatine Kinase 366 H (55-170) U/L Troponin I < 0.012 (0.01-0.034) ng/mL NT-Pro-B Natriuret Pep 611 H (<125) pg/mL Total Protein 7.7 (6.3-8.2) g/dL Albumin 4.8 (3.5-5.0) g/dL Globulin 2.9 (1.7-4.1) g/dL Albumin/Globulin Ratio 1.7 (1.0-2.8) Lipase 80 (23-300) U/L Discharge Plan Departure Patient Disposition: Home Clinical Impression: Atrial flutter Instructions: DI for Atrial Flutter Prescriptions: No Action metoprolol succinate 25 mg tablet extended release 24 hr 12.5 mg PO DAILY Jardiance 10 mg tablet 10 mg PO DAILY lisinopril 5 mg Tablet 5 mg PO DAILY Qty: 30 0RF Xarelto 20 mg tablet 20 mg PO DAILY Rx Instructions: must administer with evening meal spironolactone 25 mg tablet 12.5 mg PO DAILY Referrals: Rey Garber MD [Primary Care Provider, Internal Medicine] Stand Alone Forms: Patient Portal/API
== END 2025-01-26 12:13 | disposition home or self-care (01) ==
PROVIDERS: Emergency Provider Emergency Medicine; PCP Internal Medicine
DX: I48.92 Unspecified atrial flutter (principal); Z79.01 Long term (current) use of anticoagulants
CPT/HCPCS: 36415; 71045; 80053; 82550; 83690; 83735; 83880; 84484; 85025; 85610; 85730; 92960; 93005; 96374; 99152; 99285; J2250; J3010

== ENCOUNTER → 2025-02-10 09:10 | Outpatient (CLI) | payer BC, SELFPAY ==
[2025-01-27 14:31] VITALS: BMI 35.2
[2025-02-10 10:16] LABS: Blood Urea Nitrogen 20 mg/dL (9-20); Calcium 9.3 mg/dL (8.4-10.2); Carbon Dioxide 26 mmol/L (22-32); Chloride 103 mmol/L (98-107); Estimated Glomerular Filt Rate > 60 mL/min (>60); Glucose 94 mg/dL (70-99); HEMOLYSIS < 15 (0-50); Potassium 5.2 mmol/L (3.4-5.1); Sodium 137 mmol/L (137-145)
[2025-02-10 10:55] LABS: Thyroid Stimulating Hormone 2.06 uIU/mL (0.47-4.68)
== END ==
PROVIDERS: PCP Internal Medicine; Referring Provider Internal Medicine Cardiovascular Disease; Visit Provider Internal Medicine Cardiovascular Disease
DX: I48.0 Paroxysmal atrial fibrillation (principal)
CPT/HCPCS: 36415; 80048; 84443

== ENCOUNTER 2025-03-04 13:23 | Emergency (ER) | payer BC, SELFPAY ==
[2025-01-27 14:31] VITALS: BMI 35.2
[2025-03-04] VITALS (8 sets, daily range): BP systolic 125–136; BP diastolic 72–89; PULSE 62–91; RESP 16–24; TEMP 37–37.1; O2SAT 93–96; BMI 31.5
--- NOTE | 2025-03-04 13:39 | EKG_ITS ---
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
--- NOTE | 2025-03-04 13:39 | DI.RAD.S_ITS ---
PROCEDURE: XR CHEST 1V INDICATIONS: Chest Pain TECHNIQUE: One view of the chest was acquired. COMPARISON: [facility], CR, XR CHEST 1V, 01/26/2025, 9:51. [facility], CR, XR CHEST 1V, 03/25/2024, 10:34. FINDINGS: Surgical changes and devices: None. Lungs and pleura: Lungs are clear. No pleural effusions or pneumothorax. Mediastinum: Mediastinal contours appear normal. Heart size is normal. Bones and chest wall: No suspicious bony lesions. Overlying soft tissues appear unremarkable. IMPRESSION: No acute cardiopulmonary abnormality is seen. Dictated by: Denilson Moreno M.D. on 03/04/2025 at 14:07 Approved by: Denilson Moreno M.D. on 03/04/2025 at 14:07
[2025-03-04 14:36] LABS: INR 1.3 (0.9-1.3); Prothrombin Time 14.8 SECONDS (9.4-12.5)
[2025-03-04 14:38] LABS: Add Manual Diff / Slide Review NO; Hematocrit 48.1 % (41-53); Hemoglobin 16.0 g/dL (13.5-17.5); Lymphocytes Absolute Auto 500 /uL (1100-4500); Mean Corpuscular HGB Conc 33.4 % (30-36); Mean Corpuscular Hemoglobin 29.3 PG (26-34); Mean Corpuscular Volume 87.6 fL (80-100); Platelet Count 192 X10^3/uL (150-400)
[2025-03-04 14:39] LABS: PTT Partial Thromboplastin Tim 31 SECONDS (25.1-36.5)
[2025-03-04 14:40] LABS: Alanine Aminotransferase 36 IU/L (<50); Albumin 4.3 g/dL (3.5-5.0); Albumin Globulin Ratio 1.4 (1.0-2.8); Alkaline Phosphatase 111 U/L (38-126); Blood Urea Nitrogen 19 mg/dL (9-20); Calcium 9.0 mg/dL (8.4-10.2); Carbon Dioxide 25 mmol/L (22-32); Chloride 102 mmol/L (98-107); Creatine Kinase 163 U/L (55-170); Estimated Glomerular Filt Rate > 60 mL/min (>60); Globulin 3.0 g/dL (1.7-4.1); Glucose 143 mg/dL (70-99); HEMOLYSIS < 15 (0-50); Lipase 121 U/L (23-300); Magnesium 2.0 mg/dL (1.6-2.3); Potassium 4.4 mmol/L (3.4-5.1); Sodium 138 mmol/L (137-145); Total Protein 7.3 g/dL (6.3-8.2)
[2025-03-04 14:52] LABS: NT-proBNP (BNP-Adult 18+) 498 pg/mL (<125); Troponin I 0.019 ng/mL (0.01-0.034)
--- NOTE | 2025-03-04 15:27 | PC.NURSE ---
Sherry from Dr Abdul office called and states that if patient found to be in Afib and has not had any breaks in xeralto dosing then he would be appropriate for cardioversion.
--- NOTE | 2025-03-04 15:55 | EKG_ITS ---
[place] [id number] [place] [id number] Test Date: 2025-03-04 Pat Name: [facility] Department: 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
[2025-03-04 16:50] LABS: Troponin I 0.015 ng/mL (0.01-0.034)
--- NOTE | 2025-03-04 17:06 | ED.DIZZY ---
HPI - Dizziness General Chief Complaint: Dizziness Stated Complaint: sweating, high HR, not feeling well Time Seen by Provider: 03/04/25 17:04 Source: patient Mode of arrival: Ambulatory History of Present Illness HPI Narrative: PMHx significant for Afib s/p cardiac ablation, current anticoagulation with Xarelto, HTN, hyperkalemia Pt presents to the ER with concerns of feeling unwell for several days. The patient reports that a few weeks ago, he had blood work showing high potassium levels. He was advised to stop eating potassium-rich foods and discontinue spironolactone. However, he mistakenly stopped lisinopril instead of spironolactone for about six days. Upon realizing the error, he resumed lisinopril approximately four days ago and discontinued spironolactone two days ago. Since this medication mix-up, the patient has been experiencing symptoms including sweating, lightheadedness, and an elevated heart rate. He reports his heart rate has been around 100-105 beats per minute at rest, which he finds concerning given his history of atrial fibrillation. The patient also mentions feeling slightly short of breath and having some confusion, particularly evident in the medication mix-up. He denies any chest pain, fever, chills, or cold symptoms. The patient reports slight nausea and discomfort in the lower abdomen. He has experienced headaches recently but does not have one at the time of the visit. The patient denies any recent head injuries, vertigo, unilateral numbness or weakness, slurred speech, vomiting, diarrhea, or pain with urination. He confirms regular use of his medications, including Xarelto, and has not missed any doses of his blood thinner. The patient uses home monitoring devices including a pulse oximeter, a small EKG device, and a blood pressure monitor. He reports feeling disoriented and sweating even with minimal activity like driving. Blood work done this morning showed his potassium levels have returned to normal. Related Data Home Medications ?Medication ?Instructions ?Recorded ?Confirmed rivaroxaban 20 mg tablet (Xarelto) 20 mg PO DAILY 05/08/22 02/23/25 spironolactone 25 mg tablet 12.5 mg PO DAILY 05/08/22 02/23/25 metoprolol succinate 25 mg 12.5 mg PO DAILY 09/24/23 02/23/25 tablet,extended release 24 hr empagliflozin 10 mg tablet 10 mg PO DAILY 12/23/24 02/23/25 (Jardiance) gabapentin 300 mg capsule 300 mg PO DAILY 02/23/25 02/23/25 Previous Rx's ?Medication ?Instructions ?Recorded lisinopril 5 mg tablet 5 mg PO DAILY #30 tabs 05/19/20 Allergies Allergy/AdvReac Type Severity Reaction Status Date / Time atorvastatin AdvReac Severe painful Verified 02/23/25 09:03 neuropathy Patient History Medical History Atrial flutter Chronic anticoagulation Essential hypertension History of colonic polyps Mixed hyperlipidemia RONDON (nonalcoholic steatohepatitis) Obesity (BMI 30-39.9) Obstructive sleep apnea, adult (~12/11/20) Paroxysmal atrial fibrillation (~2018) Pneumonia Polyneuropathy, unspecified Right carpal tunnel syndrome Systolic CHF, chronic Surgical History Anesthesia History of hand surgery (~2004) Family History Family/Other Obesity Father Heart disease Mother Loud snoring Family/Other Loud snoring Social History household members: friend(s) and none Smoking Status: Never smoker alcohol intake: never Smoking Status: Never smoker alcohol intake frequency: 3 or more drinks per day Exam Narrative Exam Narrative: VS as noted above Focused physical exam as follows: General: Well developed, well nourished, no acute distress HEENT: pink palpebral conjunctiva, anicteric sclera, MARISA, moist mucous membranes, no JVD, no cervical lymphadenopathy Lungs: no respiratory distress, clear to auscultation without wheezes or crackles; equal breath sounds Heart: normal rate, regular rhythm, no appreciable murmurs Abdomen: soft, nontender, no rebound or rigidity Musculoskeletal: no gross deformities with full ROM in all extremities, no pedal edema Skin: pink, warm; no rashes Neuro: ?AAOx3, GCS 15, nonfocal exam Psyche: no SI/HI, normal affect Initial Vital Signs Initial Vital Signs: Vital Signs Temperature 98.6 F 03/04/25 13:34 Pulse Rate 91 H 03/04/25 13:34 Respiratory Rate 16 03/04/25 13:34 Blood Pressure 134/78 03/04/25 13:34 Pulse Oximetry 96 03/04/25 13:34 Oxygen Delivery Method Room Air 03/04/25 13:34 Course Orders Ordered: Discontinued Medications Aspirin (Aspirin 81 Mg Chew Tab) 324 mg PO NOW ONE Stop: 03/04/25 13:40 Last Admin: 03/04/25 18:40 Dose: Not Given Documented By: HILTON Vital Signs Vital signs: Vital Signs - 8 hr 03/04/25 13:34 03/04/25 16:29 03/04/25 16:29 Temperature 98.6 F Pulse Rate 91 H 76 Respiratory Rate 16 Blood Pressure 134/78 136/85 Pulse Oximetry 96 95 Oxygen Delivery Method Room Air 03/04/25 16:30 03/04/25 16:30 Temperature Pulse Rate 71 Respiratory Rate 23 Blood Pressure 136/89 Pulse Oximetry 95 Oxygen Delivery Method MDM - Dizziness Lab Data 03/04/25 14:10 03/04/25 14:10 Labs: Lab Results 03/04/25 03/04/25 Range/Units 14:10 16:23 WBC 8.4 (4.5-11.0) X10^3/uL RBC 5.49 (4.5-5.9) X10^6/uL Hgb 16.0 (13.5-17.5) g/dL Hct 48.1 (41-53) % MCV 87.6 (80-100) fL MCH 29.3 (26-34) PG MCHC 33.4 (30-36) % RDW 12.9 (11.6-14.8) % Plt Count 192 (150-400) X10^3/uL Neut % (Auto) 84.7 H (50-75) % Lymph % (Auto) 5.9 L (25-40) % [place] % (Auto) 8.7 (3-14) % Eos % (Auto) 0.3 L (2-4) % Baso % (Auto) 0.4 (0-2) % Neut # (Auto) 7100 H (0498-6386) /uL Lymph # (Auto) 500 L (6007-5940) /uL [place] # (Auto) 700 (0-900) /uL Eos # (Auto) 0 (0-450) /uL Baso # (Auto) 0 (0-100) /uL PT 14.8 H (9.4-12.5) SECONDS INR 1.3 (0.9-1.3) APTT 31 (25.1-36.5) SECONDS Sodium 138 (137-145) mmol/L Potassium 4.4 (3.4-5.1) mmol/L Chloride 102 (98-107) mmol/L Carbon Dioxide 25 (22-32) mmol/L BUN 19 (9-20) mg/dL Creatinine 0.98 (0.66-1.25) mg/dL Estimated GFR > 60 (>60) mL/min BUN/Creatinine Ratio 19.4 (6-22) Glucose 143 H (70-99) mg/dL Calcium 9.0 (8.4-10.2) mg/dL Magnesium 2.0 (1.6-2.3) mg/dL Total Bilirubin 0.7 (0.2-1.3) mg/dL AST 88 H (17-59) IU/L ALT 36 (<50) IU/L Alkaline Phosphatase 111 (38-126) U/L Total Creatine Kinase 163 (55-170) U/L Troponin I 0.019 0.015 (0.01-0.034) ng/mL NT-Pro-B Natriuret Pep 498 H (<125) pg/mL Total Protein 7.3 (6.3-8.2) g/dL Albumin 4.3 (3.5-5.0) g/dL Globulin 3.0 (1.7-4.1) g/dL Albumin/Globulin Ratio 1.4 (1.0-2.8) Lipase 121 (23-300) U/L Urine Dip Bedside Urine Glucose 1000 mg/dl Bedside Urine Bilirubin - Negative Bedside Urine Ketone - Negative Urine Specific [place] 1.005 Bedside Urine Occult Blood +/- Bedside Urine pH 6.0 Bedside Urine Protein - Negative Bedside Urine Urobilinogen - Negative Bedside Urine Nitrite - Negative Bedside Urine Leukocytes - Negative Esterase MDM Narrative Medical decision making narrative: HPI, PMHx, PSHx, Medication list, Allergies, ROS and Focused exam were reviewed above. ?Differential diagnosis as noted below. ?Social determinants affecting care considered. ?All of these were taken into consideration warranting above listed work up. ?Consultations as deemed necessary were documented below (if listed). Labs (if ordered and noted) were independently reviewed by me. Imaging studies (if ordered and noted) were independently reviewed by me EKG (if noted) was independently reviewed by me External documents (if reviewed) are documented above Initial VS noted above. ? Differential diagnosis considered include (but not limited to) the following: ACS, cardiac dysrhythmia, electrolyte imbalance, liver or kidney failure, TIA/CVA, intracranial hemorrhage, recent medication changes, CHF, dehydration, hypo/hyperthyroidism, symptomatic anemia 1350 - Bedside EKG showed NSR @ 97; no STTW changes; QTc 462 1700 - Bedside EKG showed NSR @ 70; no STTW changes; QTc 421 Pt interviewed and examined. Neuro exam nonfocal. GCS 15. AAOx3. No significant confusion. Pt is anticoagulated on Xarelto. No headache currently and no recent head injury or trauma. Work up initiated. Labs reviewed - unremarkable including Troponin x 2 normal and EKG x 2. No ectopy noted on telemetry. Normal electrolytes including K level today. CXR negative. BNP is minimally elevated but no physical exam findings of CHF. Discussed plan of care - stable for discharge. Discharge Plan Departure Patient Disposition: Home Clinical Impression: Light-headedness Activity Restrictions/Additional Instructions: Work up was generally reassuring. You will need to follow up with your regular doctor as needed. Continue all current medications. Return to the ER if with worsening symptoms. Prescriptions: No Action metoprolol succinate 25 mg tablet extended release 24 hr 12.5 mg PO DAILY Jardiance 10 mg tablet 10 mg PO DAILY gabapentin 300 mg capsule 300 mg PO DAILY lisinopril 5 mg Tablet 5 mg PO DAILY Qty: 30 0RF Xarelto 20 mg tablet 20 mg PO DAILY Rx Instructions: must administer with evening meal spironolactone 25 mg tablet 12.5 mg PO DAILY Referrals: Rey Garber MD [Primary Care Provider, Internal Medicine] Stand Alone Forms: Patient Portal/API
== END 2025-03-04 18:45 | disposition home or self-care (01) ==
PROVIDERS: Emergency Provider Emergency Medicine; PCP Internal Medicine
DX: R42 Dizziness and giddiness (principal); R11.2 Nausea with vomiting, unspecified; R10.30 Lower abdominal pain, unspecified; Z79.01 Long term (current) use of anticoagulants; I10 Essential (primary) hypertension; E87.5 Hyperkalemia; R40.2412 Glasgow coma scale score 13-15, at arrival to emergency department
CPT/HCPCS: 36415; 71045; 80048; 80053; 81003; 82550; 83690; 83735; 83880; 84484; 85025; 85610; 85730; 93005; 99284

== ENCOUNTER → 2025-03-12 14:25 | Outpatient (CLI) | payer BC, SELFPAY ==
[2025-01-27 14:31] VITALS: BMI 35.2
[2025-03-12 15:51] LABS: Bilirubin Urine UA NEGATIVE (NEGATIVE); Color Urine UA YELLOW; Glucose Urine UA 2+ g/dL (Negative); Ketones Urine UA TRACE (NEGATIVE); Leukocyte Esterase Urine UA NEGATIVE (NEGATIVE); Nitrite Urine UA NEGATIVE (Negative); Occult Blood Urine UA TRACE-INTACT (Negative); Protein Urine UA 2+ (Negative); Specific Gravity Urine UA 1.020 (1.000-1.035); Urobilinogen Urine UA 1.0 E.U./dL (0.2); pH Urine UA 6.0 (4.5-8.0)
[2025-03-12 15:54] LABS: Appearance Urine UA Slightly Cloudy
[2025-03-12 16:05] LABS: Culture Indicated Urine Cult Not Indicated
== END ==
PROVIDERS: PCP Internal Medicine; Referring Provider Internal Medicine; Visit Provider Internal Medicine
DX: R82.90 Unspecified abnormal findings in urine (principal)
CPT/HCPCS: 81001

== ENCOUNTER 2025-03-15 14:07 | Emergency (ER) | payer BC, SELFPAY ==
[2025-01-27 14:31] VITALS: BMI 35.2
[2025-03-15] VITALS (19 sets, daily range): BP systolic 107–128; BP diastolic 74–95; PULSE 85–131; RESP 16–36; TEMP 36.8; O2SAT 83–97; BMI 31.5
--- NOTE | 2025-03-15 14:23 | EKG_ITS ---
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
--- NOTE | 2025-03-15 14:23 | DI.RAD.S_ITS ---
PROCEDURE: XR CHEST 1V INDICATIONS: Chest Pain TECHNIQUE: One view of the chest was acquired. COMPARISON: [facility], CR, XR CHEST 1V, 03/04/2025, 13:35. FINDINGS: Lordotic patient position. Surgical changes and devices: None. Lungs and pleura: Lungs are clear. No pleural effusions or pneumothorax. Mediastinum: Mediastinal contours appear normal. Heart size is normal. Bones and chest wall: No suspicious bony lesions. Overlying soft tissues appear unremarkable. IMPRESSION: No acute cardiopulmonary abnormality is seen. Dictated by: Fani Angeles M.D. on 03/15/2025 at 14:46 Approved by: Fani Angeles M.D. on 03/15/2025 at 14:46
[2025-03-15 14:53] LABS: Add Manual Diff / Slide Review NO; Hematocrit 51.3 % (41-53); Hemoglobin 17.2 g/dL (13.5-17.5); Lymphocytes Absolute Auto 600 /uL (1100-4500); Mean Corpuscular HGB Conc 33.5 % (30-36); Mean Corpuscular Hemoglobin 28.4 PG (26-34); Mean Corpuscular Volume 84.6 fL (80-100); Platelet Count 224 X10^3/uL (150-400)
[2025-03-15 14:56] LABS: INR 2.8 (0.9-1.3); Prothrombin Time 30.7 SECONDS (9.4-12.5)
[2025-03-15 14:58] LABS: Alanine Aminotransferase 34 IU/L (<50); Albumin 3.8 g/dL (3.5-5.0); Albumin Globulin Ratio 1.2 (1.0-2.8); Alkaline Phosphatase 155 U/L (38-126); Blood Urea Nitrogen 20 mg/dL (9-20); Calcium 8.5 mg/dL (8.4-10.2); Carbon Dioxide 20 mmol/L (22-32); Chloride 103 mmol/L (98-107); Creatine Kinase 75 U/L (55-170); Estimated Glomerular Filt Rate > 60 mL/min (>60); Globulin 3.3 g/dL (1.7-4.1); Glucose 109 mg/dL (70-99); HEMOLYSIS < 15 (0-50); Lipase 49 U/L (23-300); Magnesium 2.0 mg/dL (1.6-2.3); Potassium 4.6 mmol/L (3.4-5.1); Sodium 134 mmol/L (137-145); Total Protein 7.1 g/dL (6.3-8.2)
[2025-03-15 14:59] LABS: PTT Partial Thromboplastin Tim 36 SECONDS (25.1-36.5)
[2025-03-15] MEDS: ASPIRIN 81 MG CHEW TAB 324 MG PO (15:02)
[2025-03-15 15:09] LABS: NT-proBNP (BNP-Adult 18+) 2050 pg/mL (<125); Troponin I 0.013 ng/mL (0.01-0.034)
[2025-03-15 15:42] LABS: RBC Morphology Normal Morphology
--- NOTE | 2025-03-15 15:57 | ED_ITS ---
HPI - Arrhythmia/Palpitations General Chief Complaint: Arrhythmia/Palpitations Stated Complaint: Resting heart rate 131, Sent from [facility] Time Seen by Provider: 03/15/25 15:56 Source: patient Mode of arrival: Wheelchair History of Present Illness HPI narrative: Patient is a 69-year-old male with a past medical history of hypertension, AFib on rivaroxaban, metoprolol, status post ablation in July of 2024, states that this was at [facility]. Comes into the ED from home for evaluation of weakness lightheadedness for the past 10 days. States that he was seen here last Saturday with a negative workup and was sent home. Patient went to the walk-in clinic however he had a elevated heart rate and was sent here. Related Data Home Medications ?Medication ?Instructions ?Recorded ?Confirmed rivaroxaban 20 mg tablet (Xarelto) 20 mg PO DAILY 02/1903/11/25 spironolactone 25 mg tablet 12.5 mg PO DAILY 05/08/22 03/11/25 metoprolol succinate 25 mg 12.5 mg PO DAILY 09/24/23 0 03/11/25 tablet,extended release 24 hr empagliflozin 10 mg tablet 10 mg PO DAILY 12/23/2405/25 (Jardiance) gabapentin 300 mg capsule 300 mg PO DAILY 02/23/2505/25 Previous Rx's ?Medication ?Instructions ?Recorded lisinopril 5 mg tablet 5 mg PO DAILY #30 tabs 05/19 levofloxacin 500 mg tablet 500 mg PO DAILY #10 tabs Allergies Allergy/AdvReac Type Severity Reaction Status Date / Time atorvastatin AdvReac Severe painful Verified 03/15/25 14:42 neuropathy Review of Systems Review of Systems Narrative: General: Positive generalized weakness Denies fever, chills, weight loss HEENT: Denies headache, eye drainage, eye irritation, head trauma, sore throat, voice change Cardiovascular: Denies any chest pain, palpitations, tachycardia Respiratory: Denies any shortness of breath, cough, wheeze, stridor GI/: Denies any abdominal pain, nausea, vomiting, diarrhea, bright red blood per rectum, melanotic stools, urinary frequency, urinary retention, dysuria, hematuria MSK: Denies any joint pain, muscle pains, swelling Skin: Denies any rashes, lesions, discoloration Neuro: Positive light-headedness Denies any headache, dizziness, fainting, weakness Psych: Denies SI/HI Patient History Medical History Atrial flutter Chronic anticoagulation Essential hypertension History of colonic polyps Mixed hyperlipidemia RONDON (nonalcoholic steatohepatitis) Obesity (BMI 30-39.9) Obstructive sleep apnea, adult (~12/11/20) Paroxysmal atrial fibrillation (~2018) Pneumonia Polyneuropathy, unspecified Right carpal tunnel syndrome Systolic CHF, chronic Surgical History Anesthesia History of hand surgery (~2004) Family History Family/Other Obesity Father Heart disease Mother Loud snoring Family/Other Loud snoring Social History household members: friend(s) and none alcohol intake: never alcohol intake frequency: 3 or more drinks per day Exam Narrative Exam Narrative: General: Cooperative, well-developed, not in acute distress HEENT: Normocephalic, atraumatic, PERRLA, normal sclera, eyelids normal Neck: Active full range of motion, atraumatic Chest: Normal to inspection, negative crepitus, no overlying erythema ecchymosis Respiratory: Normal respiratory effort, not in acute respiratory distress, clear to auscultation bilaterally negative cough, wheeze, tachypnea, rhonchi, rales Cardiology: Regular rate rhythm negative gallop, murmur, rubs GI/: No tenderness to palpation, soft, non rigid, normal to inspection, exam deferred MSK: Full active range of motion in all 4 extremities, atraumatic, no tenderness to palpation of any bony prominences Skin: No rashes or lesions noted Neuro: Alert awake oriented x3, moves all 4 extremities spontaneously, cranial nerves intact, able to answer all questions appropriately follows commands appropriately Psych: Cooperative, negative suicidal or homicidal ideations Initial Vital Signs Initial Vital Signs: Vital Signs Temperature 98.2 F 03/15/25 14:20 Pulse Rate 131 H 03/15/25 14:20 Respiratory Rate 17 03/15/25 14:20 Blood Pressure 115/80 03/15/25 14:20 Pulse Oximetry 97 03/15/25 14:20 Oxygen Delivery Method Room Air 03/15/25 14:20 Procedures Cardioversion Time of Cardioversion: 18:23 Consent Signed: Yes Indication: Atrial flutter Stability: Stable Number of attempts (shocks): 1 Joules used: 200 Cardiac rhythm post-cardioversion: Sinus Procedural Sedation Time of procedure: 18:23 Consent signed: Yes Time out performed: Yes Indication: cardioversion Preparation: cardiac cath lab radiology technologist applied, pulse oximeter, capnometry used, supplemental O2 applied, suction/airway equipment at bedside and IV secured IV Etomidate dose (mg): 5 ED Sedation Level: Moderate (Concious) Patient Tolerated Procedure: Well and No complications Complications: none Course Orders Ordered: ED Orders 03/15/25 14:23 XR chest 1V Stat EKG-12 Lead Stat 03/15/25 14:30 Complete Blood Count AUTO DIFF Stat Comprehensive Metabolic Panel Stat Lipase Stat Magnesium Stat NT-proBNP (BNP-Adult 18+) Stat PTT Partial Thromboplastin Jt Stat Prothrombin Time INR Stat Troponin & CK Cardiac Panel Stat 03/15/25 16:05 CT angio chest PE protocol Stat CT head/brain wo con Stat 03/15/25 17:14 EKG-12 Lead Stat 03/15/25 18:30 EKG-12 Lead Stat Discontinued Medications Aspirin (Aspirin 81 Mg Chew Tab) 324 mg PO NOW ONE Stop: 03/15/25 14:24 Last Admin: 03/15/25 15:02 Dose: 324 mg Documented By: Etomidate (Etomidate 2 Mg/Ml 10 Ml Vial) 5 mg IV NOW ONE Stop: 03/15/25 18:11 Last Admin: 03/15/25 18:25 Dose: 5 mg Documented By: Vital Signs Vital signs: Vital Signs - 8 hr 03/15/25 14:20 03/15/25 14:25 03/15/25 14:30 Temperature 98.2 F Pulse Rate 131 H 127 H 128 H Respiratory Rate 17 28 H 23 Blood Pressure 115/80 Pulse Oximetry 97 97 96 Oxygen Delivery Method Room Air Oxygen Flow Rate 03/15/25 14:36 03/15/25 14:36 03/15/25 15:00 Temperature Pulse Rate 128 H 127 H Respiratory Rate 34 H 19 Blood Pressure 120/82 Pulse Oximetry 94 97 Oxygen Delivery Method Room Air Oxygen Flow Rate 03/15/25 15:00 03/15/25 15:30 03/15/25 15:30 Temperature Pulse Rate 125 H Respiratory Rate 17 Blood Pressure 117/77 113/77 Pulse Oximetry 96 Oxygen Delivery Method Oxygen Flow Rate 03/15/25 16:00 03/15/25 16:00 03/15/25 16:36 Temperature Pulse Rate 123 H 126 H Respiratory Rate 22 Blood Pressure 128/95 H Pulse Oximetry 97 83 L Oxygen Delivery Method Oxygen Flow Rate 03/15/25 17:00 03/15/25 17:30 03/15/25 18:00 Temperature Pulse Rate 123 H 122 H 124 H Respiratory Rate 25 H 27 H 33 H Blood Pressure Pulse Oximetry 97 94 95 Oxygen Delivery Method Oxygen Flow Rate 03/15/25 18:24 03/15/25 18:42 03/15/25 19:00 Temperature Pulse Rate 104 H 104 H 85 Respiratory Rate 16 16 31 H Blood Pressure 127/85 Pulse Oximetry 96 96 Oxygen Delivery Method Oxygen Flow Rate 2 03/15/25 19:00 03/15/25 19:05 03/15/25 19:05 Temperature Pulse Rate 86 Respiratory Rate 29 H Blood Pressure 118/81 115/75 Pulse Oximetry 96 Oxygen Delivery Method Oxygen Flow Rate 03/15/25 19:11 03/15/25 19:11 Temperature Pulse Rate 89 Respiratory Rate 30 H Blood Pressure 113/75 Pulse Oximetry 97 Oxygen Delivery Method Oxygen Flow Rate MDM - Arrhythmia/Palpitations Lab Data 03/15/25 14:30 03/15/25 14:30 Labs: Lab Results 03/15/25 Range/Units 14:30 WBC 9.9 (4.5-11.0) X10^3/uL RBC 6.06 H (4.5-5.9) X10^6/uL Hgb 17.2 (13.5-17.5) g/dL Hct 51.3 (41-53) % MCV 84.6 (80-100) fL MCH 28.4 (26-34) PG MCHC 33.5 (30-36) % RDW 13.4 (11.6-14.8) % Plt Count 224 (150-400) X10^3/uL Neut % (Auto) 83.3 H (50-75) % Lymph % (Auto) 6.0 L (25-40) % [place] % (Auto) 10.0 (3-14) % Eos % (Auto) 0.3 L (2-4) % Baso % (Auto) 0.4 (0-2) % Neut # (Auto) 8300 H (3765-7167) /uL Lymph # (Auto) 600 L (0334-0354) /uL [place] # (Auto) 1000 H (0-900) /uL Eos # (Auto) 0 (0-450) /uL Baso # (Auto) 0 (0-100) /uL Clumped Platelets RBC Morphology Normal morphology PT 30.7 H (9.4-12.5) SECONDS INR 2.8 H (0.9-1.3) APTT 36 (25.1-36.5) SECONDS Sodium 134 L (137-145) mmol/L Potassium 4.6 (3.4-5.1) mmol/L Chloride 103 (98-107) mmol/L Carbon Dioxide 20 L (22-32) mmol/L BUN 20 (9-20) mg/dL Creatinine 1.11 (0.66-1.25) mg/dL Estimated GFR > 60 (>60) mL/min BUN/Creatinine Ratio 18.0 (6-22) Glucose 109 H (70-99) mg/dL Calcium 8.5 (8.4-10.2) mg/dL Magnesium 2.0 (1.6-2.3) mg/dL Total Bilirubin 1.1 (0.2-1.3) mg/dL AST 124 H (17-59) IU/L ALT 34 (<50) IU/L Alkaline Phosphatase 155 H (38-126) U/L Total Creatine Kinase 75 (55-170) U/L Troponin I 0.013 (0.01-0.034) ng/mL NT-Pro-B Natriuret Pep 2050 H (<125) pg/mL Total Protein 7.1 (6.3-8.2) g/dL Albumin 3.8 (3.5-5.0) g/dL Globulin 3.3 (1.7-4.1) g/dL Albumin/Globulin Ratio 1.2 (1.0-2.8) Lipase 49 (23-300) U/L Imaging Data CT scan - chest: Radiologist's Impresson: IMPRESSION: No pulmonary embolus. No acute pulmonary parenchymal pathology. Cardiomegaly and coronary artery calcification. Ascending aortic aneurysm, mildly enlarged since the prior exam. Very suspicious liver morphology for development of intrinsic liver disease/cirrhosis and/or multiple lesions. There is suspicious distal esophageal and upper abdominal adenopathy. Recommend further evaluation of the abdomen with CT abdomen pelvis with contrast if patient's renal function is satisfactory. ECG Data Interpretation: EKG interpreted ED physician sinus tachycardia at 129 beats per minute QTC 474, QRS IL interval within normal limits, no STEMI MDM Narrative Medical decision making narrative: 69-year-old male with a past medical history of AFib on rivaroxaban, metoprolol status post ablation in July 2024, hyperlipidemia, hypertension, comes into the ED from home for evaluation of lightheaded and weakness ongoing persistent for the past 10 days, he said he did come here when he initially had his symptoms had a negative workup and sent home, states that he went to the walk-in clinic today however his heart rate was elevated therefore came into the ED. At time of of evaluation patient's EKG just showing sinus tachycardia. Patient without any leukocytosis, patient INR 2.8 on rivaroxaban, electrolytes normal, troponin undetectable at 0.013, BNP slightly elevated at 2049, very low suspicion of PE however given patient persistently tachycardic we will obtain CT angio of the chest. Patient states that he had his ablation done at [facility]. CT PE negative for PE, however does show that patient have known ascending aortic aneurysm slightly increased from previous, also noted to have distal esophageal in the upper abdominal adenopathy 172: Pedro, reviewed the EKG due to my concern that patient is in atrial flutter. He agrees, he does recommend cardioversion. 182: Patient had procedural sedation cardioversion with etomidate 5 mg, successful cardioversion with 200 joules, patient went back to sinus rhythm, symptoms improved, patient will be re-evaluated to baseline 192: Patient re-evaluated completely back to baseline tolerated p.o. liquids and solids, he remains sinus no new symptoms, patient will be sent home with strict return precautions with primary care and Cardiology in outpatient setting, verbalized understanding agrees to being discharged home with outpatient follow up Discharge Plan Departure Patient Disposition: Home Clinical Impression: Atrial flutter Prescriptions: No Action levofloxacin 500 mg tablet 500 mg PO DAILY Qty: 10 0RF metoprolol succinate 25 mg tablet extended release 24 hr 12.5 mg PO DAILY Jardiance 10 mg tablet 10 mg PO DAILY gabapentin 300 mg capsule 300 mg PO DAILY lisinopril 5 mg Tablet 5 mg PO DAILY Qty: 30 0RF Xarelto 20 mg tablet 20 mg PO DAILY Rx Instructions: must administer with evening meal spironolactone 25 mg tablet 12.5 mg PO DAILY Referrals: Rey Garber MD [Primary Care Provider, Internal Medicine] Stand Alone Forms: Patient Portal/API
--- NOTE | 2025-03-15 16:05 | DI.CT.S_ITS ---
PROCEDURE: CT ANGIO CHEST PE PROTOCOL INDICATIONS: tachy cardia , r/o DVT TECHNIQUE: After the administration of intravenous contrast, 2 mm thick sections acquired from the pulmonary apices to the posterior costophrenic angles. 3-dimensional maximum intensity projection (MIP) coronal and sagittal reformats were then acquired through the thorax. For radiation dose reduction, the following was used: automated exposure control, adjustment of mA and/or kV according to patient size. COMPARISON: None. FINDINGS: Image quality: Diagnostic. Lung apices and lower neck was excluded from field of view due to patient condition and movement. Pulmonary arteries: Pulmonary arteries are normal in size, and demonstrate no intraluminal filling defects to suggest central pulmonary embolism. Lower Neck: Not seen Thyroid: Not seen Axillae: No enlarged lymph nodes. Chest Wall: Unremarkable. Bones: No suspicious bone lesion. Degenerative disc and endplate changes in the midthoracic spine. Lungs and Pleura: Extreme lung apices are not included on the field of view due to patient limitation factors. No nodule, mass, ground-glass opacity, or consolidation. Central and peripheral airways are normal without bronchial wall thickening or bronchiectasis. No pleural effusions. Heart: [id number] cardiomegaly. Small anterior pericardial effusion. Small epicardial fat pad lymph nodes. Moderate coronary artery calcification. Thoracic Vessels: Ascending aortic aneurysm at 4.7 cm. Mild arch and descending aortic calcification. Mediastinum and Lata: No enlarged high mediastinal or hilar lymph nodes. There are a few distal aorta esophageal lymph nodes and several periesophageal enlarged lymph nodes near the diaphragmatic hiatus. Esophagus: No wall thickening. No hiatal hernia. Upper Abdomen: Enlarged liver with a nodular margin and heterogeneous attenuation on CT. Large hepatosplenic ligament lymph node at 2 cm short axis. Probable splenomegaly. 13.5 cm in AP diameter on the given field of view. IMPRESSION: No pulmonary embolus. No acute pulmonary parenchymal pathology. Cardiomegaly and coronary artery calcification. Ascending aortic aneurysm, mildly enlarged since the prior exam. Very suspicious liver morphology for development of intrinsic liver disease/cirrhosis and/or multiple lesions. There is suspicious distal esophageal and upper abdominal adenopathy. Recommend further evaluation of the abdomen with CT abdomen pelvis with contrast if patient's renal function is satisfactory. Dictated by: Fani Angeles M.D. on 03/15/2025 at 16:54 Approved by: Fani Angeles M.D. on 03/15/2025 at 17:06
--- NOTE | 2025-03-15 16:05 | DI.CT.S_ITS ---
PROCEDURE: CT HEAD/BRAIN WO CON INDICATIONS: lightheaded / weak TECHNIQUE: Noncontrast 4.5 mm thick angled axial sections acquired from the foramen magnum to the vertex, with coronal and sagittal reformats. For radiation dose reduction, the following was used: automated exposure control, adjustment of mA and/or kV according to patient size. COMPARISON: None. FINDINGS: Image quality: Diagnostic. CSF spaces: Basal cisterns are patent. No extra-axial fluid collections. The ventricles are symmetric in size and shape. Brain: No intracranial bleeds or mass effect. There is cerebral volume loss, with resultant ventricular and sulcal prominence. There are periventricular and deep white matter chronic small vessel ischemic changes. There is intracranial internal carotid artery atherosclerosis. Skull and face: Calvarium and visualized facial bones appear intact, without suspicious lesions. Sinuses: Visualized sinuses and mastoids are clear. IMPRESSION: No CT evidence of acute intracranial process. Dictated by: Fani Angeles M.D. on 03/15/2025 at 16:53 Approved by: Fani Angeles M.D. on 03/15/2025 at 16:54
--- NOTE | 2025-03-15 17:14 | EKG_ITS ---
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
[2025-03-15] MEDS: ETOMIDATE 2 MG/ML 10 ML VIAL 5 MG IV (18:25)
--- NOTE | 2025-03-15 18:30 | EKG_ITS ---
[address] [address] Test Date: 2025-03-15 Pat Name: [facility] Department: 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
== END 2025-03-15 19:36 | disposition home or self-care (01) ==
PROVIDERS: Emergency Medicine; Emergency Provider Student in an Organized Health Care Education/Training Program; PCP Internal Medicine
DX: I48.92 Unspecified atrial flutter (principal); Z79.01 Long term (current) use of anticoagulants; R53.1 Weakness; R00.0 Tachycardia, unspecified
CPT/HCPCS: 36415; 70450; 71045; 71275; 80053; 82550; 83690; 83735; 83880; 84484; 85025; 85610; 85730; 92960; 93005; 93010; 99152; 99285; Q9967

== ENCOUNTER → 2025-03-23 08:31 | Outpatient (CLI) | payer BC, SELFPAY ==
[2025-01-27 14:31] VITALS: BMI 35.2
--- NOTE | 2025-03-23 08:32 | DI.US.S_ITS ---
PROCEDURE: US SCROTUM INDICATIONS: LEFT TESTICULAR ENLARGEMENT TECHNIQUE: Real-time scanning was performed of the scrotum and testicles, with image documentation. Color and pulse Doppler interrogation was performed of both testicles. COMPARISON: None. FINDINGS: Right: Testicle is normal in size at 3.1 x 2.2 x 2.8 cm, and homogenous in echotexture. Epididymis is normal in overall size and morphology. Simple epididymal cyst measuring 4 millimeters. Small hydrocele. No varicoceles. Overlying scrotal skin is thickened. Left: Testicle is normal in size at 3.0 x 2.5 x 2.3 cm, and homogeneous in echotexture. Epididymis is normal in overall size and morphology. Simple epididymal cyst measuring 4 millimeters. Moderate hydrocele. No varicoceles. Overlying scrotal skin is thickened. Doppler: Color and pulse Doppler demonstrate symmetrically diminished arterial flow in both testicles. IMPRESSION: 1. Arterial flow is present to both testicles, however is diminished but symmetrical. This is of uncertain significance and patient did not experience pain during exam. 2. Moderate left and small right hydroceles. Bilateral scrotal wall thickening. Dictated by: Tez Rosenberg M.D. on 03/23/2025 at 9:15 Approved by: Tez Rosenberg M.D. on 03/23/2025 at 9:20
== END ==
LOC: US 08:31
PROVIDERS: PCP Internal Medicine; Referring Provider Internal Medicine; Visit Provider Internal Medicine
DX: N50.89 Other specified disorders of the male genital organs (principal); N43.3 Hydrocele, unspecified
CPT/HCPCS: 76870; 93975